=== PATIENT | male | born 1960 | race Caucasian/White ===

== ENCOUNTER 2017-03-23 13:36 | Inpatient (IN) | payer MEDICAID, OTHER, SELFPAY ==
[2017-03-23 15:42] LABS: BASO % 0.3 % (0.0-1.0); EOS % 0.2 % (0.0-3.0); HEMATOCRIT 47.2 % (42.0-52.0); HEMOGLOBIN 14.8 g/dl (14.0-18.0); IMMATURE GRANULOCYTE % 0.3 % (0-0); LYMPH # 1.3 10^3/uL (1.5-4.5); LYMPH % 10.6 % (24.0-44.0); MEAN CORPUSCULAR HEMOGLOBIN 25.6 pg (27.0-33.0); MEAN CORPUSCULAR HGB CONC 31.4 g/dl (32.0-36.5); MEAN CORPUSCULAR VOLUME 81.7 fl (80.0-96.0); MONO # 0.7 10^3/uL (0.0-0.8); MONO % 5.8 % (0.0-5.0); NEUTROPHILS # 10.2 10^3/uL (1.8-7.7); NEUTROPHILS % 82.8 % (36.0-66.0); PLATELET COUNT, AUTOMATED 339 10^3/uL (150-450); RED BLOOD COUNT 5.78 10^6/uL (4.30-6.10); RED CELL DISTRIBUTION WIDTH 14.7 % (11.5-14.5); WHITE BLOOD COUNT 12.3 10^3/uL (4.0-10.0)
[2017-03-23 15:53] LABS: INR 1.18; PARTIAL THROMBOPLASTIN TIME 27.6 SECONDS (26.8-37.9); PROTHROMBIN TIME 15.2 SECONDS (12.4-14.5)
[2017-03-23 15:56] LABS: D-DIMER QUANT 1882.8 ng/ml (<500)
[2017-03-23 16:11] LABS: ALBUMIN 2.9 GM/DL (3.2-5.2); ALBUMIN/GLOBULIN RATIO 0.88 (1.00-1.93); ALKALINE PHOSPHATASE 142 U/L (45-117); ALT/SGPT 72 U/L (12-78); ANION GAP 8 MEQ/L (8-16); AST/SGOT 40 U/L (7-37); BILIRUBIN,DIRECT 0.3 MG/DL (0.0-0.2); BILIRUBIN,TOTAL 0.8 MG/DL (0.2-1.0); BLOOD UREA NITROGEN 20 MG/DL (7-18); CALCIUM LEVEL 8.4 MG/DL (8.5-10.1); CARBON DIOXIDE LEVEL 27 MEQ/L (21-32); CHLORIDE LEVEL 105 MEQ/L (98-107); CPK CREATINE PHOSPHOKINASE 161 U/L (39-308); GLOMERULAR FILTRATION RATE > 60.0 (>56); GLUCOSE, FASTING 202 MG/DL (70-105); LIPASE 182 U/L (73-393); SODIUM LEVEL 140 MEQ/L (136-145); TOTAL PROTEIN 6.2 GM/DL (6.4-8.2); TROPONIN I 0.05 NG/ML (< 0.10)
[2017-03-23 16:14] LABS: LACTIC ACID SEPSIS PROTOCOL 2.6 MMOL/L (0.4-2.0)
[2017-03-23 16:17] LABS: CK-MB VALUE MASS 5.8 NG/ML (0.0-3.6); NT-PRO BNP 4437 PG/ML (<125)
[2017-03-23] MEDS ORDERED: ISOVUE-370 76% 100ML VIAL (Q9967) As Ordered (16:23)
[2017-03-23] MEDS: FUROSEMIDE 40 MG/4 ML VIAL (J1940) IV (17:20)
[2017-03-23 19:19] LABS: C REACTIVE PROTEIN QUANTITATIV 2.67 MG/DL (0.00-0.30)
[2017-03-23] MEDS ORDERED: ONDANSETRON 4 MG TAB (S0181) PO (20:30)
[2017-03-23] MEDS ORDERED: METOCLOPRAMIDE 10 MG TAB PO (20:30)
[2017-03-23] MEDS ORDERED: BISACODYL 5 MG TAB PO (20:30)
[2017-03-23 21:26] LABS: ALBUMIN 2.8 GM/DL (3.2-5.2); ALKALINE PHOSPHATASE 130 U/L (45-117); AST/SGOT 36 U/L (7-37); BILIRUBIN,DIRECT 0.3 MG/DL (0.0-0.2); CPK CREATINE PHOSPHOKINASE 191 U/L (39-308); TOTAL PROTEIN 5.6 GM/DL (6.4-8.2); TROPONIN I 0.05 NG/ML (< 0.10)
[2017-03-23 21:31] LABS: ALT/SGPT 67 U/L (12-78); CK-MB VALUE MASS 7.3 NG/ML (0.0-3.6); MB/CK RELATIVE INDEX 3.82 (< OR =4)
[2017-03-23 21:46] LABS: PREALBUMIN 18.1 MG/DL (20.0-40.0)
[2017-03-23] MEDS: KETOCONAZOLE 2% CREAM TOP (23:40)
[2017-03-24 05:34] LABS: HEMATOCRIT 41.8 % (42.0-52.0); HEMOGLOBIN 13.1 g/dl (14.0-18.0); MEAN CORPUSCULAR HEMOGLOBIN 25.4 pg (27.0-33.0); MEAN CORPUSCULAR HGB CONC 31.3 g/dl (32.0-36.5); MEAN CORPUSCULAR VOLUME 81.2 fl (80.0-96.0); PLATELET COUNT, AUTOMATED 316 10^3/uL (150-450); RED BLOOD COUNT 5.15 10^6/uL (4.30-6.10); RED CELL DISTRIBUTION WIDTH 14.7 % (11.5-14.5)
[2017-03-24 05:56] LABS: ANION GAP 9 MEQ/L (8-16); BLOOD UREA NITROGEN 20 MG/DL (7-18); CALCIUM LEVEL 8.2 MG/DL (8.5-10.1); CARBON DIOXIDE LEVEL 28 MEQ/L (21-32); CHLORIDE LEVEL 104 MEQ/L (98-107); GLOMERULAR FILTRATION RATE > 60.0 (>56); GLUCOSE, FASTING 200 MG/DL (70-105); POTASSIUM SERUM 3.8 MEQ/L (3.5-5.1); SODIUM LEVEL 141 MEQ/L (136-145)
[2017-03-24] MEDS: ENOXAPARIN 40 MG/0.4 ML SYRINGE (J1650) SC (08:59)
[2017-03-24] MEDS: FUROSEMIDE 20 MG/2 ML VIAL (J1940) IV (09:00)
[2017-03-24] MEDS: KETOCONAZOLE 2% CREAM TOP ×2 (09:00→21:09)
[2017-03-24] MEDS: FUROSEMIDE 40 MG/4 ML VIAL (J1940) IV ×3 (12:44→23:16)
[2017-03-25 05:49] LABS: HEMATOCRIT 40.7 % (42.0-52.0); HEMOGLOBIN 12.7 g/dl (14.0-18.0); MEAN CORPUSCULAR HEMOGLOBIN 25.4 pg (27.0-33.0); MEAN CORPUSCULAR HGB CONC 31.2 g/dl (32.0-36.5); MEAN CORPUSCULAR VOLUME 81.4 fl (80.0-96.0); PLATELET COUNT, AUTOMATED 279 10^3/uL (150-450); RED CELL DISTRIBUTION WIDTH 14.9 % (11.5-14.5); WHITE BLOOD COUNT 8.1 10^3/uL (4.0-10.0)
[2017-03-25] MEDS: FUROSEMIDE 40 MG/4 ML VIAL (J1940) IV ×3 (06:00→18:01)
[2017-03-25 06:04] LABS: ANION GAP 8 MEQ/L (8-16); BLOOD UREA NITROGEN 19 MG/DL (7-18); CALCIUM LEVEL 7.9 MG/DL (8.5-10.1); CARBON DIOXIDE LEVEL 32 MEQ/L (21-32); CHLORIDE LEVEL 102 MEQ/L (98-107); CREATININE FOR GFR 0.81 MG/DL (0.70-1.30); GLOMERULAR FILTRATION RATE > 60.0 (>56); GLUCOSE, FASTING 171 MG/DL (70-105); POTASSIUM SERUM 3.2 MEQ/L (3.5-5.1); SODIUM LEVEL 142 MEQ/L (136-145)
[2017-03-25] MEDS: ENOXAPARIN 40 MG/0.4 ML SYRINGE (J1650) SC (07:47)
[2017-03-25] MEDS: KETOCONAZOLE 2% CREAM TOP ×2 (07:48→21:37)
[2017-03-25] MEDS: POTASSIUM CHLORIDE 10 MEQ SR TABLET PO (08:47)
[2017-03-25] MEDS: CAPTOpril 3.125 MG PER 1/4 TABLET PO ×2 (18:01→21:36)
[2017-03-25] MEDS: CARVedilol 6.25 MG TAB PO (21:36)
[2017-03-26 05:17] LABS: HEMATOCRIT 39.6 % (42.0-52.0); HEMOGLOBIN 12.3 g/dl (14.0-18.0); MEAN CORPUSCULAR HEMOGLOBIN 25.2 pg (27.0-33.0); MEAN CORPUSCULAR HGB CONC 31.1 g/dl (32.0-36.5); MEAN CORPUSCULAR VOLUME 81.1 fl (80.0-96.0); PLATELET COUNT, AUTOMATED 268 10^3/uL (150-450); RED BLOOD COUNT 4.88 10^6/uL (4.30-6.10); RED CELL DISTRIBUTION WIDTH 14.9 % (11.5-14.5); WHITE BLOOD COUNT 7.3 10^3/uL (4.0-10.0)
[2017-03-26 05:34] LABS: ANION GAP 6 MEQ/L (8-16); BLOOD UREA NITROGEN 21 MG/DL (7-18); CALCIUM LEVEL 7.8 MG/DL (8.5-10.1); CARBON DIOXIDE LEVEL 34 MEQ/L (21-32); CHLORIDE LEVEL 100 MEQ/L (98-107); CREATININE FOR GFR 0.88 MG/DL (0.70-1.30); GLOMERULAR FILTRATION RATE > 60.0 (>56); GLUCOSE, FASTING 166 MG/DL (70-105); POTASSIUM SERUM 3.6 MEQ/L (3.5-5.1); SODIUM LEVEL 140 MEQ/L (136-145)
[2017-03-26] MEDS: FUROSEMIDE 40 MG/4 ML VIAL (J1940) IV ×5 (05:38→23:43)
[2017-03-26] MEDS: ENOXAPARIN 40 MG/0.4 ML SYRINGE (J1650) SC (09:00)
[2017-03-26] MEDS: CAPTOpril 3.125 MG PER 1/4 TABLET PO ×3 (09:31→22:05)
[2017-03-26] MEDS: CARVedilol 6.25 MG TAB PO (09:31)
[2017-03-26] MEDS: KETOCONAZOLE 2% CREAM TOP ×2 (09:32→22:05)
[2017-03-26] MEDS: CARVedilol 12.5 MG TAB PO (22:04)
[2017-03-27 05:56] LABS: HEMATOCRIT 41.8 % (42.0-52.0); HEMOGLOBIN 13.1 g/dl (14.0-18.0); MEAN CORPUSCULAR HEMOGLOBIN 25.3 pg (27.0-33.0); MEAN CORPUSCULAR HGB CONC 31.3 g/dl (32.0-36.5); MEAN CORPUSCULAR VOLUME 80.7 fl (80.0-96.0); PLATELET COUNT, AUTOMATED 303 10^3/uL (150-450); RED BLOOD COUNT 5.18 10^6/uL (4.30-6.10); RED CELL DISTRIBUTION WIDTH 14.8 % (11.5-14.5); WHITE BLOOD COUNT 7.7 10^3/uL (4.0-10.0)
[2017-03-27] MEDS: FUROSEMIDE 40 MG/4 ML VIAL (J1940) IV ×3 (06:00→17:18)
[2017-03-27 06:09] LABS: ANION GAP 7 MEQ/L (8-16); BLOOD UREA NITROGEN 25 MG/DL (7-18); CALCIUM LEVEL 8.3 MG/DL (8.5-10.1); CARBON DIOXIDE LEVEL 35 MEQ/L (21-32); CHLORIDE LEVEL 97 MEQ/L (98-107); CREATININE FOR GFR 0.96 MG/DL (0.70-1.30); GLOMERULAR FILTRATION RATE > 60.0 (>56); GLUCOSE, FASTING 203 MG/DL (70-105); MAGNESIUM LEVEL 2.2 MG/DL (1.8-2.4); POTASSIUM SERUM 3.9 MEQ/L (3.5-5.1); SODIUM LEVEL 139 MEQ/L (136-145)
[2017-03-27] MEDS: ENOXAPARIN 40 MG/0.4 ML SYRINGE (J1650) SC ×2 (09:00→09:31)
[2017-03-27] MEDS: CAPTOpril 3.125 MG PER 1/4 TABLET PO ×3 (09:31→21:07)
[2017-03-27] MEDS: KETOCONAZOLE 2% CREAM TOP ×2 (09:31→21:08)
[2017-03-27] MEDS: CARVedilol 12.5 MG TAB PO ×2 (09:31→21:07)
[2017-03-28] MEDS: FUROSEMIDE 40 MG/4 ML VIAL (J1940) IV ×4 (00:21→17:22)
[2017-03-28 07:15] LABS: HEMATOCRIT 39.7 % (42.0-52.0); HEMOGLOBIN 12.2 g/dl (14.0-18.0); MEAN CORPUSCULAR HEMOGLOBIN 24.6 pg (27.0-33.0); MEAN CORPUSCULAR HGB CONC 30.7 g/dl (32.0-36.5); MEAN CORPUSCULAR VOLUME 80.2 fl (80.0-96.0); PLATELET COUNT, AUTOMATED 280 10^3/uL (150-450); RED BLOOD COUNT 4.95 10^6/uL (4.30-6.10); RED CELL DISTRIBUTION WIDTH 14.7 % (11.5-14.5); WHITE BLOOD COUNT 7.8 10^3/uL (4.0-10.0)
[2017-03-28 07:40] LABS: ANION GAP 7 MEQ/L (8-16); BLOOD UREA NITROGEN 23 MG/DL (7-18); CALCIUM LEVEL 8.1 MG/DL (8.5-10.1); CARBON DIOXIDE LEVEL 35 MEQ/L (21-32); CHLORIDE LEVEL 97 MEQ/L (98-107); CREATININE FOR GFR 0.94 MG/DL (0.70-1.30); GLOMERULAR FILTRATION RATE > 60.0 (>56); GLUCOSE, FASTING 190 MG/DL (70-105); POTASSIUM SERUM 3.6 MEQ/L (3.5-5.1); SODIUM LEVEL 139 MEQ/L (136-145)
[2017-03-28] MEDS: ATORVASTATIN 20 MG TAB PO (09:00)
[2017-03-28] MEDS: ASPIRIN 81 MG ENTERIC TAB PO (09:00)
[2017-03-28] MEDS: ENOXAPARIN 40 MG/0.4 ML SYRINGE (J1650) SC (09:00)
[2017-03-28] MEDS: CARVedilol 12.5 MG TAB PO ×2 (09:15→20:47)
[2017-03-28] MEDS: CAPTOpril 3.125 MG PER 1/4 TABLET PO ×3 (09:15→20:47)
[2017-03-28] MEDS: KETOCONAZOLE 2% CREAM TOP ×2 (09:16→20:48)
[2017-03-29] MEDS: FUROSEMIDE 40 MG/4 ML VIAL (J1940) IV ×5 (00:09→23:50)
[2017-03-29 05:52] LABS: HEMATOCRIT 38.3 % (42.0-52.0); MEAN CORPUSCULAR HEMOGLOBIN 25.2 pg (27.0-33.0); MEAN CORPUSCULAR HGB CONC 31.3 g/dl (32.0-36.5); MEAN CORPUSCULAR VOLUME 80.3 fl (80.0-96.0); PLATELET COUNT, AUTOMATED 259 10^3/uL (150-450); RED BLOOD COUNT 4.77 10^6/uL (4.30-6.10); RED CELL DISTRIBUTION WIDTH 14.6 % (11.5-14.5); WHITE BLOOD COUNT 8.3 10^3/uL (4.0-10.0)
[2017-03-29 06:17] LABS: AMMONIA 45 uMOL/L (<32)
[2017-03-29 06:21] LABS: ANION GAP 7 MEQ/L (8-16); BLOOD UREA NITROGEN 20 MG/DL (7-18); CALCIUM LEVEL 8.1 MG/DL (8.5-10.1); CARBON DIOXIDE LEVEL 34 MEQ/L (21-32); CHLORIDE LEVEL 97 MEQ/L (98-107); CREATININE FOR GFR 0.87 MG/DL (0.70-1.30); GLOMERULAR FILTRATION RATE > 60.0 (>56); GLUCOSE, FASTING 194 MG/DL (70-105); POTASSIUM SERUM 3.2 MEQ/L (3.5-5.1); SODIUM LEVEL 138 MEQ/L (136-145)
[2017-03-29] MEDS: ENOXAPARIN 40 MG/0.4 ML SYRINGE (J1650) SC (09:00)
[2017-03-29] MEDS ORDERED: ASPIRIN 81 MG ENTERIC TAB PO (09:00)
[2017-03-29] MEDS: ATORVASTATIN 20 MG TAB PO (09:00)
[2017-03-29] MEDS: ASPIRIN 81 MG ENTERIC TAB PO (09:14)
[2017-03-29] MEDS: CAPTOpril 3.125 MG PER 1/4 TABLET PO ×3 (09:14→20:40)
[2017-03-29] MEDS: POTASSIUM CHLORIDE 10 MEQ SR TABLET PO ×2 (09:14→23:51)
[2017-03-29] MEDS: SPIRONOLACTONE 12.5MG PER 1/2 TABLET PO (09:15)
[2017-03-29] MEDS: CARVedilol 12.5 MG TAB PO ×2 (09:17→20:40)
[2017-03-29] MEDS: KETOCONAZOLE 2% CREAM TOP ×2 (11:39→20:40)
[2017-03-30 05:02] LABS: HEMATOCRIT 40.2 % (42.0-52.0); HEMOGLOBIN 12.6 g/dl (14.0-18.0); MEAN CORPUSCULAR HEMOGLOBIN 24.8 pg (27.0-33.0); MEAN CORPUSCULAR HGB CONC 31.3 g/dl (32.0-36.5); PLATELET COUNT, AUTOMATED 311 10^3/uL (150-450); RED BLOOD COUNT 5.09 10^6/uL (4.30-6.10); RED CELL DISTRIBUTION WIDTH 14.6 % (11.5-14.5); WHITE BLOOD COUNT 9.8 10^3/uL (4.0-10.0)
[2017-03-30 05:21] LABS: ANION GAP 5 MEQ/L (8-16); BLOOD UREA NITROGEN 22 MG/DL (7-18); CALCIUM LEVEL 8.4 MG/DL (8.5-10.1); CARBON DIOXIDE LEVEL 35 MEQ/L (21-32); CHLORIDE LEVEL 95 MEQ/L (98-107); CREATININE FOR GFR 1.03 MG/DL (0.70-1.30); GLOMERULAR FILTRATION RATE > 60.0 (>56); GLUCOSE, FASTING 245 MG/DL (70-105); POTASSIUM SERUM 4.6 MEQ/L (3.5-5.1); SODIUM LEVEL 135 MEQ/L (136-145)
[2017-03-30] MEDS: FUROSEMIDE 40 MG/4 ML VIAL (J1940) IV ×4 (05:40→23:54)
[2017-03-30] MEDS: ENOXAPARIN 40 MG/0.4 ML SYRINGE (J1650) SC (09:00)
[2017-03-30] MEDS: ATORVASTATIN 20 MG TAB PO ×2 (09:00→09:16)
[2017-03-30] MEDS: ASPIRIN 81 MG ENTERIC TAB PO (09:16)
[2017-03-30] MEDS: SPIRONOLACTONE 12.5MG PER 1/2 TABLET PO (09:16)
[2017-03-30] MEDS: CARVedilol 12.5 MG TAB PO ×2 (09:17→20:05)
[2017-03-30] MEDS: LISINOPRIL 10 MG TAB PO (09:17)
[2017-03-30] MEDS: KETOCONAZOLE 2% CREAM TOP ×2 (09:19→20:06)
[2017-03-30] MEDS ORDERED: SLF 3 ML SYR IV (14:30)
[2017-03-30] MEDS: SLF 3 ML SYR IV (20:06)
[2017-03-31 05:05] LABS: BASO % 0.4 % (0.0-1.0); EOS # 0.1 10^3/uL (0.0-0.50); EOS % 0.8 % (0.0-3.0); HEMATOCRIT 39.5 % (42.0-52.0); HEMOGLOBIN 12.2 g/dl (14.0-18.0); IMMATURE GRANULOCYTE % 0.2 % (0-0); LYMPH # 1.8 10^3/uL (1.5-4.5); LYMPH % 21.9 % (24.0-44.0); MEAN CORPUSCULAR HEMOGLOBIN 24.8 pg (27.0-33.0); MEAN CORPUSCULAR HGB CONC 30.9 g/dl (32.0-36.5); MEAN CORPUSCULAR VOLUME 80.3 fl (80.0-96.0); MONO # 0.7 10^3/uL (0.0-0.8); MONO % 8.4 % (0.0-5.0); NEUTROPHILS # 5.6 10^3/uL (1.8-7.7); NEUTROPHILS % 68.3 % (36.0-66.0); PLATELET COUNT, AUTOMATED 296 10^3/uL (150-450); RED BLOOD COUNT 4.92 10^6/uL (4.30-6.10); RED CELL DISTRIBUTION WIDTH 14.7 % (11.5-14.5); WHITE BLOOD COUNT 8.3 10^3/uL (4.0-10.0)
[2017-03-31 05:30] LABS: ANION GAP 4 MEQ/L (8-16); BLOOD UREA NITROGEN 20 MG/DL (7-18); CALCIUM LEVEL 8.1 MG/DL (8.5-10.1); CARBON DIOXIDE LEVEL 34 MEQ/L (21-32); CHLORIDE LEVEL 95 MEQ/L (98-107); CREATININE FOR GFR 0.95 MG/DL (0.70-1.30); GLOMERULAR FILTRATION RATE > 60.0 (>56); GLUCOSE, FASTING 217 MG/DL (70-105); POTASSIUM SERUM 4.6 MEQ/L (3.5-5.1); SODIUM LEVEL 133 MEQ/L (136-145)
[2017-03-31] MEDS: SLF 3 ML SYR IV ×3 (06:09→22:00)
[2017-03-31] MEDS: FUROSEMIDE 40 MG/4 ML VIAL (J1940) IV ×3 (06:09→18:12)
[2017-03-31] MEDS: LISINOPRIL 10 MG TAB PO (08:50)
[2017-03-31] MEDS: ENOXAPARIN 40 MG/0.4 ML SYRINGE (J1650) SC (08:50)
[2017-03-31] MEDS: CARVedilol 12.5 MG TAB PO ×2 (08:50→22:40)
[2017-03-31] MEDS: ASPIRIN 81 MG ENTERIC TAB PO (08:50)
[2017-03-31] MEDS: SPIRONOLACTONE 12.5MG PER 1/2 TABLET PO (08:50)
[2017-03-31] MEDS: ATORVASTATIN 20 MG TAB PO (08:50)
[2017-03-31] MEDS: KETOCONAZOLE 2% CREAM TOP ×2 (08:51→21:00)
[2017-04-01 05:31] LABS: BASO % 0.3 % (0.0-1.0); EOS # 0.1 10^3/uL (0.0-0.50); EOS % 0.7 % (0.0-3.0); HEMATOCRIT 38.3 % (42.0-52.0); HEMOGLOBIN 11.9 g/dl (14.0-18.0); IMMATURE GRANULOCYTE % 0.5 % (0-0); LYMPH # 1.5 10^3/uL (1.5-4.5); LYMPH % 17.9 % (24.0-44.0); MEAN CORPUSCULAR HEMOGLOBIN 24.7 pg (27.0-33.0); MEAN CORPUSCULAR HGB CONC 31.1 g/dl (32.0-36.5); MEAN CORPUSCULAR VOLUME 79.6 fl (80.0-96.0); MONO # 0.9 10^3/uL (0.0-0.8); MONO % 10.1 % (0.0-5.0); NEUTROPHILS # 6.1 10^3/uL (1.8-7.7); NEUTROPHILS % 70.5 % (36.0-66.0); PLATELET COUNT, AUTOMATED 329 10^3/uL (150-450); RED BLOOD COUNT 4.81 10^6/uL (4.30-6.10); RED CELL DISTRIBUTION WIDTH 14.7 % (11.5-14.5); WHITE BLOOD COUNT 8.6 10^3/uL (4.0-10.0)
[2017-04-01 05:47] LABS: ANION GAP 5 MEQ/L (8-16); BLOOD UREA NITROGEN 21 MG/DL (7-18); CALCIUM LEVEL 8.2 MG/DL (8.5-10.1); CARBON DIOXIDE LEVEL 35 MEQ/L (21-32); CHLORIDE LEVEL 97 MEQ/L (98-107); CREATININE FOR GFR 0.86 MG/DL (0.70-1.30); GLOMERULAR FILTRATION RATE > 60.0 (>56); GLUCOSE, FASTING 191 MG/DL (70-105); POTASSIUM SERUM 3.4 MEQ/L (3.5-5.1); SODIUM LEVEL 137 MEQ/L (136-145)
[2017-04-01] MEDS: FUROSEMIDE 40 MG/4 ML VIAL (J1940) IV ×2 (06:00)
[2017-04-01] MEDS: SLF 3 ML SYR IV ×3 (06:00→21:27)
[2017-04-01] MEDS: ATORVASTATIN 20 MG TAB PO (09:00)
[2017-04-01] MEDS: ENOXAPARIN 40 MG/0.4 ML SYRINGE (J1650) SC (09:00)
[2017-04-01 09:11] LABS: MAGNESIUM LEVEL 2.3 MG/DL (1.8-2.4)
[2017-04-01] MEDS: ASPIRIN 81 MG ENTERIC TAB PO (09:21)
[2017-04-01] MEDS: KETOCONAZOLE 2% CREAM TOP ×2 (09:23→21:26)
[2017-04-01] MEDS: CARVedilol 12.5 MG TAB PO ×2 (12:00→21:26)
[2017-04-01] MEDS: SPIRONOLACTONE 12.5MG PER 1/2 TABLET PO (12:00)
[2017-04-01] MEDS: FUROSEMIDE 100 MG/10 ML VIAL (J1940) IV (13:27)
[2017-04-01] MEDS: POTASSIUM CHLORIDE 10 MEQ SR TABLET PO (18:19)
[2017-04-02] MEDS: FUROSEMIDE 100 MG/10 ML VIAL (J1940) IV ×2 (01:26→12:26)
[2017-04-02] MEDS: CEPACOL LOZENGE PO ×3 (01:26→21:31)
[2017-04-02 05:44] LABS: BASO % 0.4 % (0.0-1.0); EOS % 0.5 % (0.0-3.0); HEMATOCRIT 37.4 % (42.0-52.0); HEMOGLOBIN 11.7 g/dl (14.0-18.0); IMMATURE GRANULOCYTE % 0.4 % (0-0); LYMPH # 1.4 10^3/uL (1.5-4.5); LYMPH % 18.2 % (24.0-44.0); MEAN CORPUSCULAR HEMOGLOBIN 25.1 pg (27.0-33.0); MEAN CORPUSCULAR HGB CONC 31.3 g/dl (32.0-36.5); MEAN CORPUSCULAR VOLUME 80.3 fl (80.0-96.0); MONO # 0.8 10^3/uL (0.0-0.8); MONO % 10.8 % (0.0-5.0); NEUTROPHILS # 5.3 10^3/uL (1.8-7.7); NEUTROPHILS % 69.7 % (36.0-66.0); PLATELET COUNT, AUTOMATED 316 10^3/uL (150-450); RED BLOOD COUNT 4.66 10^6/uL (4.30-6.10); RED CELL DISTRIBUTION WIDTH 14.9 % (11.5-14.5); WHITE BLOOD COUNT 7.6 10^3/uL (4.0-10.0)
[2017-04-02 06:07] LABS: ANION GAP 6 MEQ/L (8-16); BLOOD UREA NITROGEN 19 MG/DL (7-18); CALCIUM LEVEL 8.4 MG/DL (8.5-10.1); CARBON DIOXIDE LEVEL 34 MEQ/L (21-32); CHLORIDE LEVEL 98 MEQ/L (98-107); CREATININE FOR GFR 0.85 MG/DL (0.70-1.30); GLOMERULAR FILTRATION RATE > 60.0 (>56); GLUCOSE, FASTING 180 MG/DL (70-105); MAGNESIUM LEVEL 2.2 MG/DL (1.8-2.4); POTASSIUM SERUM 3.7 MEQ/L (3.5-5.1); SODIUM LEVEL 138 MEQ/L (136-145)
[2017-04-02] MEDS: SLF 3 ML SYR IV ×3 (06:33→21:31)
[2017-04-02] MEDS: ENOXAPARIN 40 MG/0.4 ML SYRINGE (J1650) SC (09:00)
[2017-04-02] MEDS: SPIRONOLACTONE 25 MG TAB PO (09:14)
[2017-04-02] MEDS: CARVedilol 12.5 MG TAB PO ×2 (09:14→21:31)
[2017-04-02] MEDS: LISINOPRIL 20 MG TAB PO (09:14)
[2017-04-02] MEDS: ASPIRIN 81 MG ENTERIC TAB PO (09:14)
[2017-04-02] MEDS: KETOCONAZOLE 2% CREAM TOP ×2 (09:15→21:32)
[2017-04-03] MEDS: FUROSEMIDE 100 MG/10 ML VIAL (J1940) IV ×3 (00:45→23:45)
[2017-04-03] MEDS: SLF 3 ML SYR IV ×3 (05:57→22:24)
[2017-04-03 06:50] LABS: CHLORIDE LEVEL 100 MEQ/L (98-107); POTASSIUM SERUM 3.8 MEQ/L (3.5-5.1); SODIUM LEVEL 139 MEQ/L (136-145)
[2017-04-03 06:53] LABS: MAGNESIUM LEVEL 2.2 MG/DL (1.8-2.4)
[2017-04-03 06:54] LABS: BLOOD UREA NITROGEN 18 MG/DL (7-18); CALCIUM LEVEL 8.2 MG/DL (8.5-10.1); GLUCOSE, FASTING 180 MG/DL (70-105)
[2017-04-03 06:55] LABS: ANION GAP 6 MEQ/L (8-16); BASO % 0.3 % (0.0-1.0); CARBON DIOXIDE LEVEL 33 MEQ/L (21-32); EOS % 0.5 % (0.0-3.0); HEMATOCRIT 38.5 % (42.0-52.0); HEMOGLOBIN 12.1 g/dl (14.0-18.0); IMMATURE GRANULOCYTE % 0.4 % (0-0); LYMPH # 1.5 10^3/uL (1.5-4.5); LYMPH % 19.1 % (24.0-44.0); MEAN CORPUSCULAR HEMOGLOBIN 25.2 pg (27.0-33.0); MEAN CORPUSCULAR HGB CONC 31.4 g/dl (32.0-36.5); MONO # 0.7 10^3/uL (0.0-0.8); MONO % 9.5 % (0.0-5.0); NEUTROPHILS # 5.5 10^3/uL (1.8-7.7); NEUTROPHILS % 70.2 % (36.0-66.0); PLATELET COUNT, AUTOMATED 340 10^3/uL (150-450); RED BLOOD COUNT 4.81 10^6/uL (4.30-6.10); RED CELL DISTRIBUTION WIDTH 15.1 % (11.5-14.5); WHITE BLOOD COUNT 7.8 10^3/uL (4.0-10.0)
[2017-04-03 06:56] LABS: GLOMERULAR FILTRATION RATE > 60.0 (>56)
[2017-04-03] MEDS: ENOXAPARIN 40 MG/0.4 ML SYRINGE (J1650) SC (09:00)
[2017-04-03] MEDS: LISINOPRIL 20 MG TAB PO (10:20)
[2017-04-03] MEDS: ASPIRIN 81 MG ENTERIC TAB PO (10:20)
[2017-04-03] MEDS: CARVedilol 12.5 MG TAB PO ×2 (10:20→22:23)
[2017-04-03] MEDS: SPIRONOLACTONE 25 MG TAB PO (10:20)
[2017-04-03] MEDS: KETOCONAZOLE 2% CREAM TOP ×2 (10:21→22:23)
[2017-04-03] MEDS: CEPACOL LOZENGE PO (16:21)
[2017-04-04 05:52] LABS: BASO % 0.4 % (0.0-1.0); EOS # 0.1 10^3/uL (0.0-0.50); EOS % 1.2 % (0.0-3.0); HEMATOCRIT 36.7 % (42.0-52.0); HEMOGLOBIN 11.3 g/dl (14.0-18.0); IMMATURE GRANULOCYTE % 0.3 % (0-0); LYMPH % 15.3 % (24.0-44.0); MEAN CORPUSCULAR HEMOGLOBIN 24.9 pg (27.0-33.0); MEAN CORPUSCULAR HGB CONC 30.8 g/dl (32.0-36.5); MONO # 0.8 10^3/uL (0.0-0.8); MONO % 11.5 % (0.0-5.0); NEUTROPHILS # 4.9 10^3/uL (1.8-7.7); NEUTROPHILS % 71.3 % (36.0-66.0); PLATELET COUNT, AUTOMATED 309 10^3/uL (150-450); RED BLOOD COUNT 4.53 10^6/uL (4.30-6.10); WHITE BLOOD COUNT 6.8 10^3/uL (4.0-10.0)
[2017-04-04] MEDS: SLF 3 ML SYR IV ×3 (06:00→20:48)
[2017-04-04 06:06] LABS: ANION GAP 4 MEQ/L (8-16); BLOOD UREA NITROGEN 18 MG/DL (7-18); CALCIUM LEVEL 8.2 MG/DL (8.5-10.1); CARBON DIOXIDE LEVEL 35 MEQ/L (21-32); CHLORIDE LEVEL 100 MEQ/L (98-107); CREATININE FOR GFR 0.87 MG/DL (0.70-1.30); GLOMERULAR FILTRATION RATE > 60.0 (>56); GLUCOSE, FASTING 178 MG/DL (70-105); MAGNESIUM LEVEL 2.2 MG/DL (1.8-2.4); POTASSIUM SERUM 3.7 MEQ/L (3.5-5.1); SODIUM LEVEL 139 MEQ/L (136-145)
[2017-04-04] MEDS: ENOXAPARIN 40 MG/0.4 ML SYRINGE (J1650) SC (09:00)
[2017-04-04] MEDS: KETOCONAZOLE 2% CREAM TOP ×2 (09:27→20:48)
[2017-04-04] MEDS: CARVedilol 12.5 MG TAB PO ×2 (09:27→20:47)
[2017-04-04] MEDS: LISINOPRIL 20 MG TAB PO (09:27)
[2017-04-04] MEDS: SPIRONOLACTONE 25 MG TAB PO (09:27)
[2017-04-04] MEDS: ASPIRIN 81 MG ENTERIC TAB PO (09:27)
[2017-04-04] MEDS: FUROSEMIDE 100 MG/10 ML VIAL (J1940) IV (11:46)
[2017-04-04] MEDS: guaiFENesin ER 600 MG TAB PO (20:46)
[2017-04-05] MEDS ORDERED: IPRATROPIUM 0.5MG/ALBUTEROL 2.5MG INH SOL UD 3ML (DUONEB)(J7620) NEB
[2017-04-05] MEDS: FUROSEMIDE 100 MG/10 ML VIAL (J1940) IV ×2 (00:18→12:23)
[2017-04-05] MEDS: IPRATROPIUM 0.5MG/ALBUTEROL 2.5MG INH SOL UD 3ML (DUONEB)(J7620) NEB ×4 (01:23→19:54)
[2017-04-05] MEDS: SLF 3 ML SYR IV ×3 (06:00→21:14)
[2017-04-05 08:00] LABS: BASO % 0.3 % (0.0-1.0); EOS # 0.1 10^3/uL (0.0-0.50); EOS % 1.2 % (0.0-3.0); HEMATOCRIT 36.6 % (42.0-52.0); HEMOGLOBIN 11.5 g/dl (14.0-18.0); IMMATURE GRANULOCYTE % 0.3 % (0-0); LYMPH # 1.1 10^3/uL (1.5-4.5); LYMPH % 18.6 % (24.0-44.0); MEAN CORPUSCULAR HEMOGLOBIN 25.1 pg (27.0-33.0); MEAN CORPUSCULAR HGB CONC 31.4 g/dl (32.0-36.5); MEAN CORPUSCULAR VOLUME 79.9 fl (80.0-96.0); MONO # 0.8 10^3/uL (0.0-0.8); MONO % 13.8 % (0.0-5.0); NEUTROPHILS # 3.9 10^3/uL (1.8-7.7); NEUTROPHILS % 65.8 % (36.0-66.0); PLATELET COUNT, AUTOMATED 305 10^3/uL (150-450); RED BLOOD COUNT 4.58 10^6/uL (4.30-6.10); RED CELL DISTRIBUTION WIDTH 15.1 % (11.5-14.5); WHITE BLOOD COUNT 5.9 10^3/uL (4.0-10.0)
[2017-04-05] MEDS: SPIRONOLACTONE 25 MG TAB PO (08:15)
[2017-04-05] MEDS: ASPIRIN 81 MG ENTERIC TAB PO (08:16)
[2017-04-05] MEDS: guaiFENesin ER 600 MG TAB PO ×2 (08:16→21:14)
[2017-04-05] MEDS: CARVedilol 12.5 MG TAB PO ×2 (08:16→21:14)
[2017-04-05] MEDS: ACETAMINOPHEN TAB 650MG DOSE (2X325MG) PO (08:16)
[2017-04-05] MEDS: LISINOPRIL 20 MG TAB PO (08:16)
[2017-04-05] MEDS: KETOCONAZOLE 2% CREAM TOP ×2 (08:17→21:18)
[2017-04-05 08:29] LABS: ERYTHROCYTE SEDIMENTATION RATE 9 mm/hr (0-20)
[2017-04-05 08:55] LABS: ESTIMATED AVERAGE GLUCOSE 220 MG/DL (60-110); HEMOGLOBIN A1c 9.3 %
[2017-04-05] MEDS: ENOXAPARIN 40 MG/0.4 ML SYRINGE (J1650) SC (09:00)
[2017-04-05 09:26] LABS: ANION GAP 4 MEQ/L (8-16); BLOOD UREA NITROGEN 16 MG/DL (7-18); C REACTIVE PROTEIN QUANTITATIV 2.83 MG/DL (0.00-0.30); CALCIUM LEVEL 8.2 MG/DL (8.5-10.1); CARBON DIOXIDE LEVEL 34 MEQ/L (21-32); CHLORIDE LEVEL 101 MEQ/L (98-107); GLOMERULAR FILTRATION RATE > 60.0 (>56); GLUCOSE, FASTING 147 MG/DL (70-105); MAGNESIUM LEVEL 2.3 MG/DL (1.8-2.4); SODIUM LEVEL 139 MEQ/L (136-145)
[2017-04-05] MEDS: HumaLOG INSULIN (NovoLOG) PER UNIT SC ×2 (17:30→21:00)
[2017-04-05] MEDS ORDERED: GLUCOSE 4 GM CHEW TABLET PO (17:45)
[2017-04-05] MEDS ORDERED: DEXTROSE 50% 50 ML SYRINGE IV (17:45)
[2017-04-05] MEDS ORDERED: GLUCAGON FOR INJ 1 MG VIAL (J1610) SC (17:45)
[2017-04-05] MEDS: AUGMENTIN 500 MG TAB PO (21:13)
[2017-04-06] MEDS: FUROSEMIDE 100 MG/10 ML VIAL (J1940) IV ×2 (00:32→13:05)
[2017-04-06] MEDS: IPRATROPIUM 0.5MG/ALBUTEROL 2.5MG INH SOL UD 3ML (DUONEB)(J7620) NEB ×4 (01:41→19:49)
[2017-04-06] MEDS: SLF 3 ML SYR IV ×3 (06:00→22:05)
[2017-04-06] MEDS: AUGMENTIN 500 MG TAB PO ×3 (06:00→22:05)
[2017-04-06] MEDS: CEPACOL LOZENGE PO (06:00)
[2017-04-06 06:20] LABS: BASO % 0.3 % (0.0-1.0); EOS % 0.5 % (0.0-3.0); HEMATOCRIT 36.2 % (42.0-52.0); HEMOGLOBIN 11.3 g/dl (14.0-18.0); IMMATURE GRANULOCYTE % 0.5 % (0-0); LYMPH # 1.1 10^3/uL (1.5-4.5); LYMPH % 18.4 % (24.0-44.0); MEAN CORPUSCULAR HEMOGLOBIN 24.9 pg (27.0-33.0); MEAN CORPUSCULAR HGB CONC 31.2 g/dl (32.0-36.5); MEAN CORPUSCULAR VOLUME 79.7 fl (80.0-96.0); MONO # 0.7 10^3/uL (0.0-0.8); MONO % 12.3 % (0.0-5.0); PLATELET COUNT, AUTOMATED 297 10^3/uL (150-450); RED BLOOD COUNT 4.54 10^6/uL (4.30-6.10); RED CELL DISTRIBUTION WIDTH 15.3 % (11.5-14.5); WHITE BLOOD COUNT 5.9 10^3/uL (4.0-10.0)
[2017-04-06 06:33] LABS: ANION GAP 7 MEQ/L (8-16); BLOOD UREA NITROGEN 17 MG/DL (7-18); CALCIUM LEVEL 8.4 MG/DL (8.5-10.1); CARBON DIOXIDE LEVEL 33 MEQ/L (21-32); CHLORIDE LEVEL 98 MEQ/L (98-107); CREATININE FOR GFR 0.84 MG/DL (0.70-1.30); GLOMERULAR FILTRATION RATE > 60.0 (>56); GLUCOSE, FASTING 153 MG/DL (70-105); MAGNESIUM LEVEL 2.4 MG/DL (1.8-2.4); SODIUM LEVEL 138 MEQ/L (136-145)
[2017-04-06] MEDS: HumaLOG INSULIN (NovoLOG) PER UNIT SC ×4 (07:30→20:49)
[2017-04-06] MEDS: SPIRONOLACTONE 25 MG TAB PO (08:58)
[2017-04-06] MEDS: guaiFENesin ER 600 MG TAB PO ×2 (08:58→21:17)
[2017-04-06] MEDS: ASPIRIN 81 MG ENTERIC TAB PO (08:58)
[2017-04-06] MEDS: CARVedilol 12.5 MG TAB PO ×2 (09:00→21:17)
[2017-04-06] MEDS: ENOXAPARIN 40 MG/0.4 ML SYRINGE (J1650) SC (09:00)
[2017-04-06] MEDS: LISINOPRIL 20 MG TAB PO (09:00)
[2017-04-06] MEDS: KETOCONAZOLE 2% CREAM TOP ×2 (09:01→21:18)
[2017-04-06] MEDS: ACETAMINOPHEN TAB 650MG DOSE (2X325MG) PO (21:17)
[2017-04-07] MEDS: FUROSEMIDE 100 MG/10 ML VIAL (J1940) IV ×2 (00:03→12:19)
[2017-04-07] MEDS: IPRATROPIUM 0.5MG/ALBUTEROL 2.5MG INH SOL UD 3ML (DUONEB)(J7620) NEB ×4 (01:25→20:00)
[2017-04-07] MEDS: AUGMENTIN 500 MG TAB PO ×3 (05:28→21:29)
[2017-04-07] MEDS: SLF 3 ML SYR IV ×3 (05:29→21:35)
[2017-04-07 06:27] LABS: MAGNESIUM LEVEL 2.1 MG/DL (1.8-2.4)
[2017-04-07 07:25] LABS: BASO % 0.4 % (0.0-1.0); EOS # 0.1 10^3/uL (0.0-0.50); EOS % 1.1 % (0.0-3.0); HEMATOCRIT 36.2 % (42.0-52.0); HEMOGLOBIN 11.2 g/dl (14.0-18.0); IMMATURE GRANULOCYTE % 0.4 % (0-0); LYMPH # 1.1 10^3/uL (1.5-4.5); LYMPH % 21.4 % (24.0-44.0); MEAN CORPUSCULAR HEMOGLOBIN 25.2 pg (27.0-33.0); MEAN CORPUSCULAR HGB CONC 30.9 g/dl (32.0-36.5); MEAN CORPUSCULAR VOLUME 81.3 fl (80.0-96.0); MONO # 0.8 10^3/uL (0.0-0.8); MONO % 14.6 % (0.0-5.0); NEUTROPHILS # 3.3 10^3/uL (1.8-7.7); NEUTROPHILS % 62.1 % (36.0-66.0); PLATELET COUNT, AUTOMATED 280 10^3/uL (150-450); RED BLOOD COUNT 4.45 10^6/uL (4.30-6.10); RED CELL DISTRIBUTION WIDTH 15.5 % (11.5-14.5); WHITE BLOOD COUNT 5.3 10^3/uL (4.0-10.0)
[2017-04-07] MEDS: HumaLOG INSULIN (NovoLOG) PER UNIT SC ×4 (07:30→21:00)
[2017-04-07 07:31] LABS: ANION GAP 4 MEQ/L (8-16); BLOOD UREA NITROGEN 18 MG/DL (7-18); CALCIUM LEVEL 8.2 MG/DL (8.5-10.1); CARBON DIOXIDE LEVEL 34 MEQ/L (21-32); CHLORIDE LEVEL 100 MEQ/L (98-107); CREATININE FOR GFR 0.92 MG/DL (0.70-1.30); GLOMERULAR FILTRATION RATE > 60.0 (>56); GLUCOSE, FASTING 133 MG/DL (70-105); POTASSIUM SERUM 3.8 MEQ/L (3.5-5.1); SODIUM LEVEL 138 MEQ/L (136-145)
[2017-04-07] MEDS: ENOXAPARIN 40 MG/0.4 ML SYRINGE (J1650) SC (07:43)
[2017-04-07] MEDS: guaiFENesin ER 600 MG TAB PO ×2 (09:03→21:29)
[2017-04-07] MEDS: ASPIRIN 81 MG ENTERIC TAB PO (09:03)
[2017-04-07] MEDS: LISINOPRIL 20 MG TAB PO (09:04)
[2017-04-07] MEDS: KETOCONAZOLE 2% CREAM TOP ×2 (09:04→21:30)
[2017-04-07] MEDS: CARVedilol 12.5 MG TAB PO ×2 (09:05→21:34)
[2017-04-07] MEDS: SPIRONOLACTONE 25 MG TAB PO (09:05)
[2017-04-07] MEDS: SODIUM CHLORIDE NASAL 0.65% SPRAY BTL (OCEAN) (12:19)
[2017-04-07] MEDS: CEPACOL LOZENGE PO (15:59)
[2017-04-08] MEDS: IPRATROPIUM 0.5MG/ALBUTEROL 2.5MG INH SOL UD 3ML (DUONEB)(J7620) NEB ×4 (02:00→20:07)
[2017-04-08] MEDS: AUGMENTIN 500 MG TAB PO ×3 (05:47→22:00)
[2017-04-08] MEDS: SLF 3 ML SYR IV ×3 (05:47→22:00)
[2017-04-08 06:09] LABS: HEMATOCRIT 37.3 % (42.0-52.0); HEMOGLOBIN 11.3 g/dl (14.0-18.0); MEAN CORPUSCULAR HEMOGLOBIN 24.4 pg (27.0-33.0); MEAN CORPUSCULAR HGB CONC 30.3 g/dl (32.0-36.5); MEAN CORPUSCULAR VOLUME 80.6 fl (80.0-96.0); PLATELET COUNT, AUTOMATED 285 10^3/uL (150-450); RED BLOOD COUNT 4.63 10^6/uL (4.30-6.10); RED CELL DISTRIBUTION WIDTH 15.4 % (11.5-14.5); WHITE BLOOD COUNT 5.7 10^3/uL (4.0-10.0)
[2017-04-08 06:28] LABS: ANION GAP 4 MEQ/L (8-16); BLOOD UREA NITROGEN 15 MG/DL (7-18); CALCIUM LEVEL 8.3 MG/DL (8.5-10.1); CARBON DIOXIDE LEVEL 34 MEQ/L (21-32); CHLORIDE LEVEL 102 MEQ/L (98-107); CREATININE FOR GFR 0.83 MG/DL (0.70-1.30); GLOMERULAR FILTRATION RATE > 60.0 (>56); GLUCOSE, FASTING 142 MG/DL (70-105); MAGNESIUM LEVEL 2.3 MG/DL (1.8-2.4); POTASSIUM SERUM 3.8 MEQ/L (3.5-5.1); SODIUM LEVEL 140 MEQ/L (136-145)
[2017-04-08] MEDS: HumaLOG INSULIN (NovoLOG) PER UNIT SC ×4 (07:17→20:20)
[2017-04-08] MEDS: ENOXAPARIN 40 MG/0.4 ML SYRINGE (J1650) SC (07:18)
[2017-04-08] MEDS: LISINOPRIL 20 MG TAB PO (08:27)
[2017-04-08] MEDS: CARVedilol 12.5 MG TAB PO ×2 (08:27→20:27)
[2017-04-08] MEDS: ASPIRIN 81 MG ENTERIC TAB PO (08:27)
[2017-04-08] MEDS: SPIRONOLACTONE 25 MG TAB PO (08:27)
[2017-04-08] MEDS: guaiFENesin ER 600 MG TAB PO ×2 (08:28→20:26)
[2017-04-08] MEDS: KETOCONAZOLE 2% CREAM TOP ×2 (08:28→20:27)
[2017-04-08] MEDS: SARNA LOTION 225 ML BTL TOP (12:16)
[2017-04-08] MEDS: FUROSEMIDE 100 MG/10 ML VIAL (J1940) IV ×3 (12:16→23:50)
[2017-04-08] MEDS: EUCERIN 120GM CREAM TOP (21:26)
[2017-04-09] MEDS: IPRATROPIUM 0.5MG/ALBUTEROL 2.5MG INH SOL UD 3ML (DUONEB)(J7620) NEB ×4 (01:48→21:39)
[2017-04-09] MEDS: SLF 3 ML SYR IV ×4 (05:31→22:00)
[2017-04-09] MEDS: AUGMENTIN 500 MG TAB PO ×3 (05:36→21:26)
[2017-04-09] MEDS: CEPACOL LOZENGE PO (06:08)
[2017-04-09] MEDS: HumaLOG INSULIN (NovoLOG) PER UNIT SC ×4 (07:30→21:00)
[2017-04-09] MEDS: ASPIRIN 81 MG ENTERIC TAB PO (07:57)
[2017-04-09] MEDS: CARVedilol 12.5 MG TAB PO ×2 (07:58→21:00)
[2017-04-09] MEDS: guaiFENesin ER 600 MG TAB PO ×2 (07:58→21:26)
[2017-04-09] MEDS: SPIRONOLACTONE 25 MG TAB PO (07:58)
[2017-04-09] MEDS: LISINOPRIL 20 MG TAB PO (07:58)
[2017-04-09] MEDS: ENOXAPARIN 40 MG/0.4 ML SYRINGE (J1650) SC (07:59)
[2017-04-09] MEDS: KETOCONAZOLE 2% CREAM TOP ×2 (07:59→21:27)
[2017-04-09 08:40] LABS: HEMATOCRIT 36.2 % (42.0-52.0); HEMOGLOBIN 11.2 g/dl (14.0-18.0); MEAN CORPUSCULAR HEMOGLOBIN 24.8 pg (27.0-33.0); MEAN CORPUSCULAR HGB CONC 30.9 g/dl (32.0-36.5); MEAN CORPUSCULAR VOLUME 80.1 fl (80.0-96.0); PLATELET COUNT, AUTOMATED 282 10^3/uL (150-450); RED BLOOD COUNT 4.52 10^6/uL (4.30-6.10); RED CELL DISTRIBUTION WIDTH 15.3 % (11.5-14.5); WHITE BLOOD COUNT 6.7 10^3/uL (4.0-10.0)
[2017-04-09 09:00] LABS: ANION GAP 6 MEQ/L (8-16); BLOOD UREA NITROGEN 15 MG/DL (7-18); CALCIUM LEVEL 8.1 MG/DL (8.5-10.1); CARBON DIOXIDE LEVEL 32 MEQ/L (21-32); CHLORIDE LEVEL 101 MEQ/L (98-107); CREATININE FOR GFR 0.78 MG/DL (0.70-1.30); GLOMERULAR FILTRATION RATE > 60.0 (>56); GLUCOSE, FASTING 191 MG/DL (70-105); SODIUM LEVEL 139 MEQ/L (136-145)
[2017-04-09] MEDS: FUROSEMIDE 100 MG/10 ML VIAL (J1940) IV (12:00)
[2017-04-10] MEDS: FUROSEMIDE 100 MG/10 ML VIAL (J1940) IV ×2 (00:25→12:00)
[2017-04-10] MEDS: IPRATROPIUM 0.5MG/ALBUTEROL 2.5MG INH SOL UD 3ML (DUONEB)(J7620) NEB ×4 (02:00→21:10)
[2017-04-10] MEDS: SLF 3 ML SYR IV ×3 (05:09→21:13)
[2017-04-10] MEDS: AUGMENTIN 500 MG TAB PO ×3 (05:52→21:12)
[2017-04-10 06:33] LABS: HEMATOCRIT 38.7 % (42.0-52.0); HEMOGLOBIN 11.9 g/dl (14.0-18.0); MEAN CORPUSCULAR HEMOGLOBIN 24.6 pg (27.0-33.0); MEAN CORPUSCULAR HGB CONC 30.7 g/dl (32.0-36.5); MEAN CORPUSCULAR VOLUME 80.1 fl (80.0-96.0); PLATELET COUNT, AUTOMATED 338 10^3/uL (150-450); RED BLOOD COUNT 4.83 10^6/uL (4.30-6.10); RED CELL DISTRIBUTION WIDTH 15.2 % (11.5-14.5); WHITE BLOOD COUNT 8.1 10^3/uL (4.0-10.0)
[2017-04-10 07:04] LABS: ANION GAP 7 MEQ/L (8-16); BLOOD UREA NITROGEN 13 MG/DL (7-18); CALCIUM LEVEL 8.6 MG/DL (8.5-10.1); CARBON DIOXIDE LEVEL 32 MEQ/L (21-32); CHLORIDE LEVEL 100 MEQ/L (98-107); CREATININE FOR GFR 0.86 MG/DL (0.70-1.30); GLOMERULAR FILTRATION RATE > 60.0 (>56); GLUCOSE, FASTING 150 MG/DL (70-100); POTASSIUM SERUM 4.1 MEQ/L (3.5-5.1); SODIUM LEVEL 139 MEQ/L (136-145)
[2017-04-10] MEDS: SPIRONOLACTONE 25 MG TAB PO (07:57)
[2017-04-10] MEDS: CARVedilol 12.5 MG TAB PO ×2 (07:58→21:12)
[2017-04-10] MEDS: LISINOPRIL 20 MG TAB PO (07:58)
[2017-04-10] MEDS: ASPIRIN 81 MG ENTERIC TAB PO (07:58)
[2017-04-10] MEDS: HumaLOG INSULIN (NovoLOG) PER UNIT SC ×4 (07:58→20:58)
[2017-04-10] MEDS: guaiFENesin ER 600 MG TAB PO ×2 (07:58→21:12)
[2017-04-10] MEDS: ENOXAPARIN 40 MG/0.4 ML SYRINGE (J1650) SC (07:59)
[2017-04-10] MEDS: KETOCONAZOLE 2% CREAM TOP ×2 (07:59→21:12)
[2017-04-11] MEDS: FUROSEMIDE 100 MG/10 ML VIAL (J1940) IV ×3 (00:14→23:39)
[2017-04-11] MEDS: IPRATROPIUM 0.5MG/ALBUTEROL 2.5MG INH SOL UD 3ML (DUONEB)(J7620) NEB ×4 (02:00→20:00)
[2017-04-11] MEDS: SLF 3 ML SYR IV ×3 (05:21→20:37)
[2017-04-11] MEDS: AUGMENTIN 500 MG TAB PO (06:16)
[2017-04-11 06:33] LABS: HEMATOCRIT 36.9 % (42.0-52.0); HEMOGLOBIN 11.2 g/dl (14.0-18.0); MEAN CORPUSCULAR HEMOGLOBIN 24.3 pg (27.0-33.0); MEAN CORPUSCULAR HGB CONC 30.4 g/dl (32.0-36.5); PLATELET COUNT, AUTOMATED 322 10^3/uL (150-450); RED BLOOD COUNT 4.61 10^6/uL (4.30-6.10); RED CELL DISTRIBUTION WIDTH 15.3 % (11.5-14.5); WHITE BLOOD COUNT 7.3 10^3/uL (4.0-10.0)
[2017-04-11 06:51] LABS: ANION GAP 5 MEQ/L (8-16); BLOOD UREA NITROGEN 9 MG/DL (7-18); CALCIUM LEVEL 8.5 MG/DL (8.5-10.1); CARBON DIOXIDE LEVEL 32 MEQ/L (21-32); CHLORIDE LEVEL 104 MEQ/L (98-107); CREATININE FOR GFR 0.75 MG/DL (0.70-1.30); GLOMERULAR FILTRATION RATE > 60.0 (>56); GLUCOSE, FASTING 144 MG/DL (70-100); POTASSIUM SERUM 4.2 MEQ/L (3.5-5.1); SODIUM LEVEL 141 MEQ/L (136-145)
[2017-04-11] MEDS: HumaLOG INSULIN (NovoLOG) PER UNIT SC ×4 (07:39→20:37)
[2017-04-11] MEDS: guaiFENesin ER 600 MG TAB PO ×2 (09:45→20:46)
[2017-04-11] MEDS: ASPIRIN 81 MG ENTERIC TAB PO (09:45)
[2017-04-11] MEDS: SPIRONOLACTONE 25 MG TAB PO (09:45)
[2017-04-11] MEDS: ENOXAPARIN 40 MG/0.4 ML SYRINGE (J1650) SC (09:46)
[2017-04-11] MEDS: CARVedilol 12.5 MG TAB PO ×2 (09:46→20:47)
[2017-04-11] MEDS: LISINOPRIL 20 MG TAB PO (09:46)
[2017-04-11] MEDS: KETOCONAZOLE 2% CREAM TOP ×2 (09:47→20:47)
[2017-04-12] MEDS: IPRATROPIUM 0.5MG/ALBUTEROL 2.5MG INH SOL UD 3ML (DUONEB)(J7620) NEB ×4 (02:00→20:00)
[2017-04-12] MEDS: SLF 3 ML SYR IV ×3 (06:00→20:29)
[2017-04-12 06:36] LABS: HEMOGLOBIN 11.5 g/dl (14.0-18.0); MEAN CORPUSCULAR HEMOGLOBIN 24.8 pg (27.0-33.0); MEAN CORPUSCULAR HGB CONC 31.1 g/dl (32.0-36.5); MEAN CORPUSCULAR VOLUME 79.7 fl (80.0-96.0); PLATELET COUNT, AUTOMATED 352 10^3/uL (150-450); RED BLOOD COUNT 4.64 10^6/uL (4.30-6.10); RED CELL DISTRIBUTION WIDTH 15.1 % (11.5-14.5); WHITE BLOOD COUNT 7.5 10^3/uL (4.0-10.0)
[2017-04-12 06:55] LABS: ANION GAP 6 MEQ/L (8-16); BLOOD UREA NITROGEN 10 MG/DL (7-18); CALCIUM LEVEL 8.4 MG/DL (8.5-10.1); CARBON DIOXIDE LEVEL 31 MEQ/L (21-32); CHLORIDE LEVEL 104 MEQ/L (98-107); CREATININE FOR GFR 0.75 MG/DL (0.70-1.30); GLOMERULAR FILTRATION RATE > 60.0 (>56); GLUCOSE, FASTING 145 MG/DL (70-100); POTASSIUM SERUM 3.9 MEQ/L (3.5-5.1); SODIUM LEVEL 141 MEQ/L (136-145)
[2017-04-12] MEDS: HumaLOG INSULIN (NovoLOG) PER UNIT SC ×4 (07:12→20:28)
[2017-04-12] MEDS: guaiFENesin ER 600 MG TAB PO ×2 (08:47→20:33)
[2017-04-12] MEDS: ASPIRIN 81 MG ENTERIC TAB PO (08:47)
[2017-04-12] MEDS: CARVedilol 12.5 MG TAB PO ×2 (08:48→20:34)
[2017-04-12] MEDS: SPIRONOLACTONE 25 MG TAB PO (08:48)
[2017-04-12] MEDS: LISINOPRIL 20 MG TAB PO (08:48)
[2017-04-12] MEDS: ENOXAPARIN 40 MG/0.4 ML SYRINGE (J1650) SC (08:50)
[2017-04-12] MEDS: KETOCONAZOLE 2% CREAM TOP ×2 (08:50→20:34)
[2017-04-12] MEDS: FUROSEMIDE 100 MG/10 ML VIAL (J1940) IV ×2 (11:50→23:58)
[2017-04-13] MEDS: IPRATROPIUM 0.5MG/ALBUTEROL 2.5MG INH SOL UD 3ML (DUONEB)(J7620) NEB ×4 (02:00→19:59)
[2017-04-13] MEDS: SLF 3 ML SYR IV ×3 (05:50→20:03)
[2017-04-13 06:51] LABS: HEMATOCRIT 37.8 % (42.0-52.0); HEMOGLOBIN 11.5 g/dl (14.0-18.0); MEAN CORPUSCULAR HEMOGLOBIN 24.2 pg (27.0-33.0); MEAN CORPUSCULAR HGB CONC 30.4 g/dl (32.0-36.5); MEAN CORPUSCULAR VOLUME 79.6 fl (80.0-96.0); PLATELET COUNT, AUTOMATED 348 10^3/uL (150-450); RED BLOOD COUNT 4.75 10^6/uL (4.30-6.10); RED CELL DISTRIBUTION WIDTH 15.2 % (11.5-14.5); WHITE BLOOD COUNT 6.9 10^3/uL (4.0-10.0)
[2017-04-13 07:02] LABS: ANION GAP 5 MEQ/L (8-16); BLOOD UREA NITROGEN 12 MG/DL (7-18); CALCIUM LEVEL 8.8 MG/DL (8.5-10.1); CARBON DIOXIDE LEVEL 33 MEQ/L (21-32); CHLORIDE LEVEL 102 MEQ/L (98-107); CREATININE FOR GFR 0.81 MG/DL (0.70-1.30); GLOMERULAR FILTRATION RATE > 60.0 (>56); GLUCOSE, FASTING 151 MG/DL (70-100); POTASSIUM SERUM 3.8 MEQ/L (3.5-5.1); SODIUM LEVEL 140 MEQ/L (136-145)
[2017-04-13] MEDS: HumaLOG INSULIN (NovoLOG) PER UNIT SC ×4 (07:22→19:56)
[2017-04-13] MEDS: ENOXAPARIN 40 MG/0.4 ML SYRINGE (J1650) SC (09:00)
[2017-04-13] MEDS: ASPIRIN 81 MG ENTERIC TAB PO (09:22)
[2017-04-13] MEDS: SPIRONOLACTONE 25 MG TAB PO (09:22)
[2017-04-13] MEDS: guaiFENesin ER 600 MG TAB PO ×2 (09:22→19:56)
[2017-04-13] MEDS: LISINOPRIL 20 MG TAB PO (09:23)
[2017-04-13] MEDS: KETOCONAZOLE 2% CREAM TOP ×2 (09:23→20:03)
[2017-04-13] MEDS: CARVedilol 12.5 MG TAB PO ×2 (09:23→19:56)
[2017-04-13] MEDS: FUROSEMIDE 100 MG/10 ML VIAL (J1940) IV ×2 (12:00→23:52)
[2017-04-13] MEDS: EUCERIN 120GM CREAM TOP ×3 (14:40→20:35)
[2017-04-14] MEDS: IPRATROPIUM 0.5MG/ALBUTEROL 2.5MG INH SOL UD 3ML (DUONEB)(J7620) NEB ×4 (00:55→20:00)
[2017-04-14] MEDS: SLF 3 ML SYR IV ×3 (04:46→21:05)
[2017-04-14 05:59] LABS: HEMATOCRIT 35.2 % (42.0-52.0); HEMOGLOBIN 10.8 g/dl (14.0-18.0); MEAN CORPUSCULAR HEMOGLOBIN 24.5 pg (27.0-33.0); MEAN CORPUSCULAR HGB CONC 30.7 g/dl (32.0-36.5); MEAN CORPUSCULAR VOLUME 79.8 fl (80.0-96.0); PLATELET COUNT, AUTOMATED 321 10^3/uL (150-450); RED BLOOD COUNT 4.41 10^6/uL (4.30-6.10)
[2017-04-14 06:21] LABS: ANION GAP 5 MEQ/L (8-16); BLOOD UREA NITROGEN 13 MG/DL (7-18); CALCIUM LEVEL 8.7 MG/DL (8.5-10.1); CARBON DIOXIDE LEVEL 30 MEQ/L (21-32); CHLORIDE LEVEL 106 MEQ/L (98-107); CREATININE FOR GFR 0.68 MG/DL (0.70-1.30); GLOMERULAR FILTRATION RATE > 60.0 (>56); GLUCOSE, FASTING 154 MG/DL (70-100); POTASSIUM SERUM 4.1 MEQ/L (3.5-5.1); SODIUM LEVEL 141 MEQ/L (136-145)
[2017-04-14] MEDS: HumaLOG INSULIN (NovoLOG) PER UNIT SC ×4 (07:49→21:00)
[2017-04-14] MEDS: SPIRONOLACTONE 25 MG TAB PO (08:28)
[2017-04-14] MEDS: LISINOPRIL 20 MG TAB PO (08:29)
[2017-04-14] MEDS: ASPIRIN 81 MG ENTERIC TAB PO (08:29)
[2017-04-14] MEDS: CARVedilol 12.5 MG TAB PO ×2 (08:29→21:05)
[2017-04-14] MEDS: KETOCONAZOLE 2% CREAM TOP ×2 (08:30→21:06)
[2017-04-14] MEDS: ENOXAPARIN 40 MG/0.4 ML SYRINGE (J1650) SC (08:30)
[2017-04-14] MEDS: guaiFENesin ER 600 MG TAB PO ×2 (08:30→21:04)
[2017-04-14] MEDS: EUCERIN 120GM CREAM TOP ×2 (08:30→21:00)
[2017-04-14] MEDS: FUROSEMIDE 100 MG/10 ML VIAL (J1940) IV (12:28)
[2017-04-14 13:44] LABS: APPEARANCE, URINE CLEAR (CLEAR); BACTERIA, URINE AUTO NEGATIVE (NEGATIVE); BILIRUBIN, URINE AUTO NEGATIVE (NEGATIVE); BLOOD, URINE BLOOD NEGATIVE (NEGATIVE); COLOR, URINE YELLOW (YELLOW); GLUCOSE, URINE (UA) AUTO NEGATIVE (NEGATIVE); KETONE, URINE AUTO NEGATIVE (NEGATIVE); LEUKOCYTE ESTERASE, URINE AUTO NEGATIVE (NEGATIVE); NITRITE, URINE AUTO NEGATIVE (NEGATIVE); PROTEIN, URINE AUTO NEGATIVE (NEGATIVE); RBC, URINE AUTO 1 /HPF (0-3); SPECIFIC GRAVITY URINE AUTO 1.005 (1.002-1.035); SQUAMOUS EPITHELIAL CELL UR AU 0 /HPF (0-6); UROBILINOGEN, URINE AUTO 0.2 mg/dL (0.0-2.0); WBC, URINE AUTO 0 /HPF (0-3)
[2017-04-15] MEDS: FUROSEMIDE 100 MG/10 ML VIAL (J1940) IV
[2017-04-15] MEDS: IPRATROPIUM 0.5MG/ALBUTEROL 2.5MG INH SOL UD 3ML (DUONEB)(J7620) NEB ×4 (01:25→20:00)
[2017-04-15] MEDS: SLF 3 ML SYR IV ×4 (05:28→22:00)
[2017-04-15] MEDS: HumaLOG INSULIN (NovoLOG) PER UNIT SC ×4 (07:20→20:57)
[2017-04-15] MEDS: KETOCONAZOLE 2% CREAM TOP ×2 (09:00→21:35)
[2017-04-15] MEDS: EUCERIN 120GM CREAM TOP ×2 (09:00→21:36)
[2017-04-15] MEDS: ENOXAPARIN 40 MG/0.4 ML SYRINGE (J1650) SC (09:00)
[2017-04-15] MEDS: CARVedilol 12.5 MG TAB PO ×2 (09:01→21:36)
[2017-04-15] MEDS: ASPIRIN 81 MG ENTERIC TAB PO (09:01)
[2017-04-15] MEDS: SPIRONOLACTONE 25 MG TAB PO (09:01)
[2017-04-15] MEDS: guaiFENesin ER 600 MG TAB PO ×2 (09:01→21:35)
[2017-04-15] MEDS: LISINOPRIL 20 MG TAB PO (09:01)
[2017-04-15] MEDS: FUROSEMIDE 20 MG TAB PO ×2 (09:02→17:27)
[2017-04-16] MEDS: IPRATROPIUM 0.5MG/ALBUTEROL 2.5MG INH SOL UD 3ML (DUONEB)(J7620) NEB ×4 (02:00→19:46)
[2017-04-16] MEDS: SLF 3 ML SYR IV (05:52)
[2017-04-16 07:13] LABS: HEMATOCRIT 36.4 % (42.0-52.0); HEMOGLOBIN 11.1 g/dl (14.0-18.0); MEAN CORPUSCULAR HEMOGLOBIN 24.4 pg (27.0-33.0); MEAN CORPUSCULAR HGB CONC 30.5 g/dl (32.0-36.5); PLATELET COUNT, AUTOMATED 339 10^3/uL (150-450); RED BLOOD COUNT 4.55 10^6/uL (4.30-6.10); RED CELL DISTRIBUTION WIDTH 15.1 % (11.5-14.5); WHITE BLOOD COUNT 5.9 10^3/uL (4.0-10.0)
[2017-04-16] MEDS: HumaLOG INSULIN (NovoLOG) PER UNIT SC ×4 (07:23→21:00)
[2017-04-16 07:37] LABS: ANION GAP 6 MEQ/L (8-16); BLOOD UREA NITROGEN 15 MG/DL (7-18); CALCIUM LEVEL 8.5 MG/DL (8.5-10.1); CARBON DIOXIDE LEVEL 29 MEQ/L (21-32); CHLORIDE LEVEL 107 MEQ/L (98-107); CREATININE FOR GFR 0.76 MG/DL (0.70-1.30); GLOMERULAR FILTRATION RATE > 60.0 (>56); GLUCOSE, FASTING 147 MG/DL (70-100); MAGNESIUM LEVEL 2.2 MG/DL (1.8-2.4); POTASSIUM SERUM 4.1 MEQ/L (3.5-5.1); SODIUM LEVEL 142 MEQ/L (136-145)
[2017-04-16] MEDS: guaiFENesin ER 600 MG TAB PO ×2 (08:35→21:20)
[2017-04-16] MEDS: CARVedilol 12.5 MG TAB PO ×2 (08:35→21:20)
[2017-04-16] MEDS: LISINOPRIL 20 MG TAB PO (08:35)
[2017-04-16] MEDS: ASPIRIN 81 MG ENTERIC TAB PO (08:35)
[2017-04-16] MEDS: SPIRONOLACTONE 25 MG TAB PO (08:35)
[2017-04-16] MEDS: FUROSEMIDE 20 MG TAB PO ×2 (08:36→21:20)
[2017-04-16] MEDS: ENOXAPARIN 40 MG/0.4 ML SYRINGE (J1650) SC (08:36)
[2017-04-16] MEDS: EUCERIN 120GM CREAM TOP ×2 (08:37→21:00)
[2017-04-16] MEDS: KETOCONAZOLE 2% CREAM TOP ×2 (08:37→21:21)
[2017-04-17] MEDS: IPRATROPIUM 0.5MG/ALBUTEROL 2.5MG INH SOL UD 3ML (DUONEB)(J7620) NEB ×5 (02:00→23:23)
[2017-04-17 07:00] LABS: HEMATOCRIT 36.5 % (42.0-52.0); HEMOGLOBIN 11.4 g/dl (14.0-18.0); MEAN CORPUSCULAR HEMOGLOBIN 24.5 pg (27.0-33.0); MEAN CORPUSCULAR HGB CONC 31.2 g/dl (32.0-36.5); MEAN CORPUSCULAR VOLUME 78.5 fl (80.0-96.0); PLATELET COUNT, AUTOMATED 354 10^3/uL (150-450); RED BLOOD COUNT 4.65 10^6/uL (4.30-6.10); RED CELL DISTRIBUTION WIDTH 15.1 % (11.5-14.5); WHITE BLOOD COUNT 7.3 10^3/uL (4.0-10.0)
[2017-04-17 07:18] LABS: ANION GAP 7 MEQ/L (8-16); BLOOD UREA NITROGEN 13 MG/DL (7-18); CALCIUM LEVEL 8.6 MG/DL (8.5-10.1); CARBON DIOXIDE LEVEL 28 MEQ/L (21-32); CHLORIDE LEVEL 104 MEQ/L (98-107); CREATININE FOR GFR 0.73 MG/DL (0.70-1.30); GLOMERULAR FILTRATION RATE > 60.0 (>56); GLUCOSE, FASTING 160 MG/DL (70-100); POTASSIUM SERUM 3.7 MEQ/L (3.5-5.1); SODIUM LEVEL 139 MEQ/L (136-145)
[2017-04-17] MEDS: HumaLOG INSULIN (NovoLOG) PER UNIT SC ×4 (07:30→21:00)
[2017-04-17] MEDS: metFORMIN (GLUCOPHAGE) 500 MG TAB PO ×2 (08:00→17:32)
[2017-04-17] MEDS: FUROSEMIDE 20 MG TAB PO ×2 (08:37→21:21)
[2017-04-17] MEDS: ENOXAPARIN 40 MG/0.4 ML SYRINGE (J1650) SC (09:00)
[2017-04-17] MEDS: EUCERIN 120GM CREAM TOP ×2 (09:00→21:00)
[2017-04-17] MEDS: LISINOPRIL 20 MG TAB PO (09:23)
[2017-04-17] MEDS: SPIRONOLACTONE 25 MG TAB PO (09:25)
[2017-04-17] MEDS: ASPIRIN 81 MG ENTERIC TAB PO (09:25)
[2017-04-17] MEDS: guaiFENesin ER 600 MG TAB PO ×2 (09:25→21:21)
[2017-04-17] MEDS: KETOCONAZOLE 2% CREAM TOP ×2 (09:25→21:22)
[2017-04-17] MEDS: CARVedilol 12.5 MG TAB PO ×2 (09:26→21:22)
[2017-04-18 06:28] LABS: HEMATOCRIT 37.4 % (42.0-52.0); HEMOGLOBIN 11.5 g/dl (14.0-18.0); MEAN CORPUSCULAR HEMOGLOBIN 24.2 pg (27.0-33.0); MEAN CORPUSCULAR HGB CONC 30.7 g/dl (32.0-36.5); MEAN CORPUSCULAR VOLUME 78.7 fl (80.0-96.0); PLATELET COUNT, AUTOMATED 386 10^3/uL (150-450); RED BLOOD COUNT 4.75 10^6/uL (4.30-6.10); RED CELL DISTRIBUTION WIDTH 15.1 % (11.5-14.5); WHITE BLOOD COUNT 6.4 10^3/uL (4.0-10.0)
[2017-04-18 06:44] LABS: ANION GAP 5 MEQ/L (8-16); BLOOD UREA NITROGEN 15 MG/DL (7-18); CARBON DIOXIDE LEVEL 31 MEQ/L (21-32); CHLORIDE LEVEL 103 MEQ/L (98-107); CREATININE FOR GFR 0.74 MG/DL (0.70-1.30); GLOMERULAR FILTRATION RATE > 60.0 (>56); GLUCOSE, FASTING 154 MG/DL (70-100); POTASSIUM SERUM 3.6 MEQ/L (3.5-5.1); SODIUM LEVEL 139 MEQ/L (136-145)
[2017-04-18] MEDS: IPRATROPIUM 0.5MG/ALBUTEROL 2.5MG INH SOL UD 3ML (DUONEB)(J7620) NEB ×3 (07:19→20:00)
[2017-04-18] MEDS: HumaLOG INSULIN (NovoLOG) PER UNIT SC ×4 (07:23→21:34)
[2017-04-18] MEDS: metFORMIN (GLUCOPHAGE) 500 MG TAB PO ×2 (07:23→17:33)
[2017-04-18] MEDS: ENOXAPARIN 40 MG/0.4 ML SYRINGE (J1650) SC (07:24)
[2017-04-18] MEDS: EUCERIN 120GM CREAM TOP ×2 (09:00→21:43)
[2017-04-18] MEDS: FUROSEMIDE 20 MG TAB PO ×2 (09:00→21:41)
[2017-04-18] MEDS: KETOCONAZOLE 2% CREAM TOP ×2 (09:08→21:42)
[2017-04-18] MEDS: guaiFENesin ER 600 MG TAB PO ×2 (09:08→21:42)
[2017-04-18] MEDS: LISINOPRIL 20 MG TAB PO (09:08)
[2017-04-18] MEDS: ASPIRIN 81 MG ENTERIC TAB PO (09:08)
[2017-04-18] MEDS: SPIRONOLACTONE 25 MG TAB PO (09:08)
[2017-04-18] MEDS: CARVedilol 12.5 MG TAB PO ×2 (09:09→21:42)
[2017-04-19] MEDS: IPRATROPIUM 0.5MG/ALBUTEROL 2.5MG INH SOL UD 3ML (DUONEB)(J7620) NEB ×4 (01:30→20:00)
[2017-04-19] MEDS: HumaLOG INSULIN (NovoLOG) PER UNIT SC ×4 (07:07→21:00)
[2017-04-19] MEDS: metFORMIN (GLUCOPHAGE) 500 MG TAB PO ×2 (07:08→16:23)
[2017-04-19] MEDS: ENOXAPARIN 40 MG/0.4 ML SYRINGE (J1650) SC (07:09)
[2017-04-19] MEDS: KETOCONAZOLE 2% CREAM TOP ×2 (09:00→21:32)
[2017-04-19] MEDS: EUCERIN 120GM CREAM TOP ×2 (09:00→21:00)
[2017-04-19] MEDS: FUROSEMIDE 20 MG TAB PO ×2 (09:00→21:31)
[2017-04-19] MEDS: SPIRONOLACTONE 25 MG TAB PO (09:34)
[2017-04-19] MEDS: CARVedilol 12.5 MG TAB PO ×2 (09:34→21:32)
[2017-04-19] MEDS: LISINOPRIL 20 MG TAB PO (09:34)
[2017-04-19] MEDS: guaiFENesin ER 600 MG TAB PO ×2 (09:34→21:31)
[2017-04-19] MEDS: ASPIRIN 81 MG ENTERIC TAB PO (09:34)
[2017-04-20] MEDS: IPRATROPIUM 0.5MG/ALBUTEROL 2.5MG INH SOL UD 3ML (DUONEB)(J7620) NEB ×4 (02:00→20:00)
[2017-04-20 06:18] LABS: HEMATOCRIT 39.5 % (42.0-52.0); HEMOGLOBIN 12.2 g/dl (14.0-18.0); MEAN CORPUSCULAR HEMOGLOBIN 24.5 pg (27.0-33.0); MEAN CORPUSCULAR HGB CONC 30.9 g/dl (32.0-36.5); MEAN CORPUSCULAR VOLUME 79.3 fl (80.0-96.0); PLATELET COUNT, AUTOMATED 389 10^3/uL (150-450); RED BLOOD COUNT 4.98 10^6/uL (4.30-6.10); RED CELL DISTRIBUTION WIDTH 15.2 % (11.5-14.5); WHITE BLOOD COUNT 6.4 10^3/uL (4.0-10.0)
[2017-04-20 06:35] LABS: ANION GAP 5 MEQ/L (8-16); BLOOD UREA NITROGEN 18 MG/DL (7-18); CALCIUM LEVEL 8.8 MG/DL (8.5-10.1); CARBON DIOXIDE LEVEL 30 MEQ/L (21-32); CHLORIDE LEVEL 106 MEQ/L (98-107); CREATININE FOR GFR 0.83 MG/DL (0.70-1.30); GLOMERULAR FILTRATION RATE > 60.0 (>56); GLUCOSE, FASTING 174 MG/DL (70-100); MAGNESIUM LEVEL 2.1 MG/DL (1.8-2.4); POTASSIUM SERUM 4.4 MEQ/L (3.5-5.1); SODIUM LEVEL 141 MEQ/L (136-145)
[2017-04-20] MEDS: HumaLOG INSULIN (NovoLOG) PER UNIT SC ×4 (07:30→20:20)
[2017-04-20] MEDS: metFORMIN (GLUCOPHAGE) 500 MG TAB PO ×2 (07:33→16:47)
[2017-04-20] MEDS: FUROSEMIDE 20 MG TAB PO ×2 (08:34→20:41)
[2017-04-20] MEDS: ASPIRIN 81 MG ENTERIC TAB PO (08:39)
[2017-04-20] MEDS: guaiFENesin ER 600 MG TAB PO ×2 (08:39→20:41)
[2017-04-20] MEDS: SPIRONOLACTONE 25 MG TAB PO (08:39)
[2017-04-20] MEDS: ENOXAPARIN 40 MG/0.4 ML SYRINGE (J1650) SC (08:40)
[2017-04-20] MEDS: KETOCONAZOLE 2% CREAM TOP ×2 (08:41→20:41)
[2017-04-20] MEDS: EUCERIN 120GM CREAM TOP ×2 (08:41→20:42)
[2017-04-20] MEDS: LISINOPRIL 20 MG TAB PO (08:45)
[2017-04-20] MEDS: CARVedilol 12.5 MG TAB PO ×2 (08:47→20:40)
[2017-04-21] MEDS: IPRATROPIUM 0.5MG/ALBUTEROL 2.5MG INH SOL UD 3ML (DUONEB)(J7620) NEB ×4 (02:00→20:00)
[2017-04-21] MEDS: metFORMIN (GLUCOPHAGE) 500 MG TAB PO ×2 (07:26→16:40)
[2017-04-21] MEDS: HumaLOG INSULIN (NovoLOG) PER UNIT SC ×4 (07:26→21:00)
[2017-04-21] MEDS: CARVedilol 12.5 MG TAB PO ×2 (07:27→21:00)
[2017-04-21] MEDS: ENOXAPARIN 40 MG/0.4 ML SYRINGE (J1650) SC (07:27)
[2017-04-21] MEDS: FUROSEMIDE 20 MG TAB PO ×2 (08:59→21:00)
[2017-04-21] MEDS: SPIRONOLACTONE 25 MG TAB PO (08:59)
[2017-04-21] MEDS: ASPIRIN 81 MG ENTERIC TAB PO (08:59)
[2017-04-21] MEDS: guaiFENesin ER 600 MG TAB PO ×2 (08:59→21:37)
[2017-04-21] MEDS: LISINOPRIL 20 MG TAB PO (08:59)
[2017-04-21] MEDS: KETOCONAZOLE 2% CREAM TOP ×2 (09:00→21:37)
[2017-04-21] MEDS: EUCERIN 120GM CREAM TOP ×2 (09:00→21:38)
[2017-04-22 06:26] LABS: HEMATOCRIT 41.3 % (42.0-52.0); HEMOGLOBIN 12.7 g/dl (14.0-18.0); MEAN CORPUSCULAR HEMOGLOBIN 24.3 pg (27.0-33.0); MEAN CORPUSCULAR HGB CONC 30.8 g/dl (32.0-36.5); PLATELET COUNT, AUTOMATED 405 10^3/uL (150-450); RED BLOOD COUNT 5.23 10^6/uL (4.30-6.10); WHITE BLOOD COUNT 6.4 10^3/uL (4.0-10.0)
[2017-04-22 06:44] LABS: ANION GAP 6 MEQ/L (8-16); BLOOD UREA NITROGEN 17 MG/DL (7-18); CALCIUM LEVEL 8.7 MG/DL (8.5-10.1); CARBON DIOXIDE LEVEL 30 MEQ/L (21-32); CHLORIDE LEVEL 104 MEQ/L (98-107); CREATININE FOR GFR 0.69 MG/DL (0.70-1.30); GLOMERULAR FILTRATION RATE > 60.0 (>56); GLUCOSE, FASTING 165 MG/DL (70-100); MAGNESIUM LEVEL 2.1 MG/DL (1.8-2.4); POTASSIUM SERUM 4.2 MEQ/L (3.5-5.1); SODIUM LEVEL 140 MEQ/L (136-145)
[2017-04-22] MEDS: HumaLOG INSULIN (NovoLOG) PER UNIT SC ×4 (07:30→21:00)
[2017-04-22] MEDS: metFORMIN (GLUCOPHAGE) 500 MG TAB PO ×2 (08:00→17:33)
[2017-04-22] MEDS: IPRATROPIUM 0.5MG/ALBUTEROL 2.5MG INH SOL UD 3ML (DUONEB)(J7620) NEB ×3 (08:00→20:00)
[2017-04-22] MEDS: ASPIRIN 81 MG ENTERIC TAB PO (08:58)
[2017-04-22] MEDS: KETOCONAZOLE 2% CREAM TOP ×2 (08:58→20:46)
[2017-04-22] MEDS: FUROSEMIDE 20 MG TAB PO ×2 (08:58→20:44)
[2017-04-22] MEDS: LISINOPRIL 20 MG TAB PO (08:58)
[2017-04-22] MEDS: guaiFENesin ER 600 MG TAB PO ×2 (08:58→20:43)
[2017-04-22] MEDS: SPIRONOLACTONE 25 MG TAB PO (08:58)
[2017-04-22] MEDS: EUCERIN 120GM CREAM TOP ×2 (08:59→20:47)
[2017-04-22] MEDS: CARVedilol 12.5 MG TAB PO ×2 (09:00→21:00)
[2017-04-22] MEDS: ENOXAPARIN 40 MG/0.4 ML SYRINGE (J1650) SC (09:00)
[2017-04-23] MEDS: IPRATROPIUM 0.5MG/ALBUTEROL 2.5MG INH SOL UD 3ML (DUONEB)(J7620) NEB ×5 (01:20→23:47)
[2017-04-23] MEDS: HumaLOG INSULIN (NovoLOG) PER UNIT SC ×4 (07:29→19:50)
[2017-04-23] MEDS: metFORMIN (GLUCOPHAGE) 500 MG TAB PO ×2 (07:29→16:25)
[2017-04-23] MEDS: FUROSEMIDE 20 MG TAB PO ×2 (07:56→19:50)
[2017-04-23] MEDS: ASPIRIN 81 MG ENTERIC TAB PO (07:56)
[2017-04-23] MEDS: SPIRONOLACTONE 25 MG TAB PO (07:56)
[2017-04-23] MEDS: guaiFENesin ER 600 MG TAB PO ×2 (07:56→20:54)
[2017-04-23] MEDS: EUCERIN 120GM CREAM TOP ×2 (07:57→20:53)
[2017-04-23] MEDS: KETOCONAZOLE 2% CREAM TOP ×2 (07:57→20:54)
[2017-04-23] MEDS: ENOXAPARIN 40 MG/0.4 ML SYRINGE (J1650) SC (07:57)
[2017-04-23] MEDS: LISINOPRIL 20 MG TAB PO (08:00)
[2017-04-23] MEDS: CARVedilol 12.5 MG TAB PO ×2 (08:00→19:49)
[2017-04-24 05:55] LABS: HEMATOCRIT 45.5 % (42.0-52.0); MEAN CORPUSCULAR HEMOGLOBIN 23.9 pg (27.0-33.0); MEAN CORPUSCULAR HGB CONC 30.8 g/dl (32.0-36.5); MEAN CORPUSCULAR VOLUME 77.8 fl (80.0-96.0); PLATELET COUNT, AUTOMATED 399 10^3/uL (150-450); RED BLOOD COUNT 5.85 10^6/uL (4.30-6.10); RED CELL DISTRIBUTION WIDTH 15.4 % (11.5-14.5); WHITE BLOOD COUNT 7.1 10^3/uL (4.0-10.0)
[2017-04-24 06:19] LABS: ANION GAP 5 MEQ/L (8-16); BLOOD UREA NITROGEN 24 MG/DL (7-18); CALCIUM LEVEL 9.2 MG/DL (8.5-10.1); CARBON DIOXIDE LEVEL 31 MEQ/L (21-32); CHLORIDE LEVEL 103 MEQ/L (98-107); CREATININE FOR GFR 0.77 MG/DL (0.70-1.30); GLOMERULAR FILTRATION RATE > 60.0 (>56); GLUCOSE, FASTING 181 MG/DL (70-100); MAGNESIUM LEVEL 2.1 MG/DL (1.8-2.4); POTASSIUM SERUM 4.1 MEQ/L (3.5-5.1); SODIUM LEVEL 139 MEQ/L (136-145)
[2017-04-24] MEDS: metFORMIN (GLUCOPHAGE) 500 MG TAB PO ×2 (07:13→16:22)
[2017-04-24] MEDS: HumaLOG INSULIN (NovoLOG) PER UNIT SC ×4 (07:13→21:16)
[2017-04-24] MEDS: IPRATROPIUM 0.5MG/ALBUTEROL 2.5MG INH SOL UD 3ML (DUONEB)(J7620) NEB ×3 (07:59→20:00)
[2017-04-24] MEDS: guaiFENesin ER 600 MG TAB PO ×2 (08:45→20:55)
[2017-04-24] MEDS: SPIRONOLACTONE 25 MG TAB PO (08:45)
[2017-04-24] MEDS: ASPIRIN 81 MG ENTERIC TAB PO (08:45)
[2017-04-24] MEDS: FUROSEMIDE 20 MG TAB PO ×2 (08:45→21:16)
[2017-04-24] MEDS: KETOCONAZOLE 2% CREAM TOP ×2 (08:47→21:16)
[2017-04-24] MEDS: EUCERIN 120GM CREAM TOP ×2 (08:47→20:56)
[2017-04-24] MEDS: LISINOPRIL 20 MG TAB PO (08:47)
[2017-04-24] MEDS: ENOXAPARIN 40 MG/0.4 ML SYRINGE (J1650) SC (08:47)
[2017-04-24] MEDS: CARVedilol 12.5 MG TAB PO ×2 (08:48→21:16)
[2017-04-25] MEDS: IPRATROPIUM 0.5MG/ALBUTEROL 2.5MG INH SOL UD 3ML (DUONEB)(J7620) NEB (00:59)
[2017-04-25] MEDS: HumaLOG INSULIN (NovoLOG) PER UNIT SC ×4 (07:30→21:00)
[2017-04-25] MEDS: metFORMIN (GLUCOPHAGE) 500 MG TAB PO ×2 (08:00→17:17)
[2017-04-25] MEDS: CARVedilol 12.5 MG TAB PO ×2 (09:00→21:00)
[2017-04-25] MEDS: ENOXAPARIN 40 MG/0.4 ML SYRINGE (J1650) SC (09:00)
[2017-04-25] MEDS: SPIRONOLACTONE 25 MG TAB PO (09:53)
[2017-04-25] MEDS: ASPIRIN 81 MG ENTERIC TAB PO (09:53)
[2017-04-25] MEDS: FUROSEMIDE 20 MG TAB PO ×2 (09:53→21:00)
[2017-04-25] MEDS: LISINOPRIL 20 MG TAB PO (09:54)
[2017-04-25] MEDS: guaiFENesin ER 600 MG TAB PO ×2 (09:54→21:46)
[2017-04-25] MEDS: KETOCONAZOLE 2% CREAM TOP ×2 (09:56→21:00)
[2017-04-25] MEDS: EUCERIN 120GM CREAM TOP ×2 (09:57→21:00)
[2017-04-26 06:53] LABS: HEMATOCRIT 46.5 % (42.0-52.0); HEMOGLOBIN 14.3 g/dl (14.0-18.0); MEAN CORPUSCULAR HEMOGLOBIN 23.9 pg (27.0-33.0); MEAN CORPUSCULAR HGB CONC 30.8 g/dl (32.0-36.5); MEAN CORPUSCULAR VOLUME 77.8 fl (80.0-96.0); PLATELET COUNT, AUTOMATED 384 10^3/uL (150-450); RED BLOOD COUNT 5.98 10^6/uL (4.30-6.10); RED CELL DISTRIBUTION WIDTH 15.8 % (11.5-14.5); WHITE BLOOD COUNT 6.2 10^3/uL (4.0-10.0)
[2017-04-26] MEDS: HumaLOG INSULIN (NovoLOG) PER UNIT SC ×4 (07:26→21:00)
[2017-04-26] MEDS: metFORMIN (GLUCOPHAGE) 500 MG TAB PO ×2 (07:26→16:54)
[2017-04-26 07:27] LABS: ANION GAP 7 MEQ/L (8-16); BLOOD UREA NITROGEN 23 MG/DL (7-18); CALCIUM LEVEL 8.9 MG/DL (8.5-10.1); CARBON DIOXIDE LEVEL 28 MEQ/L (21-32); CHLORIDE LEVEL 104 MEQ/L (98-107); CREATININE FOR GFR 0.76 MG/DL (0.70-1.30); GLOMERULAR FILTRATION RATE > 60.0 (>56); GLUCOSE, FASTING 169 MG/DL (70-100); MAGNESIUM LEVEL 2.2 MG/DL (1.8-2.4); POTASSIUM SERUM 4.5 MEQ/L (3.5-5.1); SODIUM LEVEL 139 MEQ/L (136-145)
[2017-04-26] MEDS: CARVedilol 12.5 MG TAB PO ×2 (07:54→21:00)
[2017-04-26] MEDS: ENOXAPARIN 40 MG/0.4 ML SYRINGE (J1650) SC (07:54)
[2017-04-26] MEDS: EUCERIN 120GM CREAM TOP ×2 (08:51→21:42)
[2017-04-26] MEDS: FUROSEMIDE 20 MG TAB PO ×2 (08:52→21:43)
[2017-04-26] MEDS: SPIRONOLACTONE 25 MG TAB PO (08:52)
[2017-04-26] MEDS: KETOCONAZOLE 2% CREAM TOP ×2 (08:52→21:42)
[2017-04-26] MEDS: guaiFENesin ER 600 MG TAB PO ×2 (08:52→21:44)
[2017-04-26] MEDS: LISINOPRIL 20 MG TAB PO (08:52)
[2017-04-26] MEDS: ASPIRIN 81 MG ENTERIC TAB PO (08:52)
[2017-04-27] MEDS: metFORMIN (GLUCOPHAGE) 500 MG TAB PO ×2 (07:18→17:05)
[2017-04-27] MEDS: HumaLOG INSULIN (NovoLOG) PER UNIT SC ×4 (07:18→21:00)
[2017-04-27] MEDS: ENOXAPARIN 40 MG/0.4 ML SYRINGE (J1650) SC (07:47)
[2017-04-27] MEDS: FUROSEMIDE 20 MG TAB PO ×2 (07:49→21:32)
[2017-04-27] MEDS: CARVedilol 12.5 MG TAB PO ×2 (07:49→21:00)
[2017-04-27] MEDS: KETOCONAZOLE 2% CREAM TOP ×2 (09:03→21:32)
[2017-04-27] MEDS: EUCERIN 120GM CREAM TOP ×2 (09:03→21:32)
[2017-04-27] MEDS: guaiFENesin ER 600 MG TAB PO ×2 (09:03→21:31)
[2017-04-27] MEDS: ASPIRIN 81 MG ENTERIC TAB PO (09:03)
[2017-04-27] MEDS: SPIRONOLACTONE 25 MG TAB PO (09:03)
[2017-04-27] MEDS: LISINOPRIL 20 MG TAB PO (09:05)
[2017-04-28 05:49] LABS: HEMATOCRIT 46.5 % (42.0-52.0); HEMOGLOBIN 14.5 g/dl (14.0-18.0); MEAN CORPUSCULAR HEMOGLOBIN 24.3 pg (27.0-33.0); MEAN CORPUSCULAR HGB CONC 31.2 g/dl (32.0-36.5); MEAN CORPUSCULAR VOLUME 77.9 fl (80.0-96.0); PLATELET COUNT, AUTOMATED 335 10^3/uL (150-450); RED BLOOD COUNT 5.97 10^6/uL (4.30-6.10); RED CELL DISTRIBUTION WIDTH 15.8 % (11.5-14.5); WHITE BLOOD COUNT 6.3 10^3/uL (4.0-10.0)
[2017-04-28 06:08] LABS: BLOOD UREA NITROGEN 27 MG/DL (7-18); CREATININE FOR GFR 0.87 MG/DL (0.70-1.30); GLUCOSE, FASTING 174 MG/DL (70-100)
[2017-04-28 06:09] LABS: ANION GAP 8 MEQ/L (8-16); CARBON DIOXIDE LEVEL 30 MEQ/L (21-32); CHLORIDE LEVEL 101 MEQ/L (98-107); GLOMERULAR FILTRATION RATE > 60.0 (>56); POTASSIUM SERUM 4.3 MEQ/L (3.5-5.1); SODIUM LEVEL 139 MEQ/L (136-145)
[2017-04-28] MEDS: HumaLOG INSULIN (NovoLOG) PER UNIT SC ×4 (07:30→20:57)
[2017-04-28] MEDS: metFORMIN (GLUCOPHAGE) 500 MG TAB PO ×2 (07:35→16:01)
[2017-04-28] MEDS: CARVedilol 12.5 MG TAB PO ×2 (08:16→20:57)
[2017-04-28] MEDS: FUROSEMIDE 40 MG TAB PO (08:21)
[2017-04-28] MEDS: guaiFENesin ER 600 MG TAB PO ×2 (08:21→20:54)
[2017-04-28] MEDS: SPIRONOLACTONE 25 MG TAB PO (08:21)
[2017-04-28] MEDS: ASPIRIN 81 MG ENTERIC TAB PO (08:21)
[2017-04-28] MEDS: KETOCONAZOLE 2% CREAM TOP ×2 (08:23→21:00)
[2017-04-28] MEDS: LISINOPRIL 20 MG TAB PO (08:23)
[2017-04-28] MEDS: EUCERIN 120GM CREAM TOP ×2 (08:23→20:56)
[2017-04-29] MEDS: HumaLOG INSULIN (NovoLOG) PER UNIT SC ×4 (07:01→20:43)
[2017-04-29] MEDS: metFORMIN (GLUCOPHAGE) 500 MG TAB PO ×2 (07:02→15:21)
[2017-04-29] MEDS: CARVedilol 12.5 MG TAB PO ×2 (09:00→20:43)
[2017-04-29] MEDS: SPIRONOLACTONE 25 MG TAB PO (09:14)
[2017-04-29] MEDS: FUROSEMIDE 40 MG TAB PO (09:15)
[2017-04-29] MEDS: guaiFENesin ER 600 MG TAB PO ×2 (09:15→21:51)
[2017-04-29] MEDS: ASPIRIN 81 MG ENTERIC TAB PO (09:15)
[2017-04-29] MEDS: LISINOPRIL 20 MG TAB PO (09:16)
[2017-04-29] MEDS: KETOCONAZOLE 2% CREAM TOP ×2 (09:16→21:52)
[2017-04-29] MEDS: EUCERIN 120GM CREAM TOP ×2 (09:16→21:53)
[2017-04-30 06:31] LABS: HEMOGLOBIN 14.5 g/dl (14.0-18.0); MEAN CORPUSCULAR HGB CONC 30.9 g/dl (32.0-36.5); MEAN CORPUSCULAR VOLUME 77.9 fl (80.0-96.0); PLATELET COUNT, AUTOMATED 310 10^3/uL (150-450); RED BLOOD COUNT 6.03 10^6/uL (4.30-6.10); RED CELL DISTRIBUTION WIDTH 16.7 % (11.5-14.5); WHITE BLOOD COUNT 5.5 10^3/uL (4.0-10.0)
[2017-04-30 06:54] LABS: ANION GAP 8 MEQ/L (8-16); BLOOD UREA NITROGEN 25 MG/DL (7-18); CALCIUM LEVEL 9.2 MG/DL (8.5-10.1); CARBON DIOXIDE LEVEL 27 MEQ/L (21-32); CHLORIDE LEVEL 103 MEQ/L (98-107); CREATININE FOR GFR 0.77 MG/DL (0.70-1.30); GLOMERULAR FILTRATION RATE > 60.0 (>56); GLUCOSE, FASTING 175 MG/DL (70-100); MAGNESIUM LEVEL 2.1 MG/DL (1.8-2.4); POTASSIUM SERUM 4.5 MEQ/L (3.5-5.1); SODIUM LEVEL 138 MEQ/L (136-145)
[2017-04-30] MEDS: HumaLOG INSULIN (NovoLOG) PER UNIT SC ×4 (07:01→21:00)
[2017-04-30] MEDS: metFORMIN (GLUCOPHAGE) 500 MG TAB PO ×2 (07:01→17:25)
[2017-04-30] MEDS: CARVedilol 12.5 MG TAB PO ×2 (07:54→21:00)
[2017-04-30] MEDS: EUCERIN 120GM CREAM TOP ×2 (09:00→21:31)
[2017-04-30] MEDS: FUROSEMIDE 40 MG TAB PO (09:36)
[2017-04-30] MEDS: LISINOPRIL 20 MG TAB PO (09:36)
[2017-04-30] MEDS: SPIRONOLACTONE 25 MG TAB PO (09:36)
[2017-04-30] MEDS: guaiFENesin ER 600 MG TAB PO ×2 (09:36→21:30)
[2017-04-30] MEDS: KETOCONAZOLE 2% CREAM TOP ×2 (09:37→21:31)
[2017-04-30] MEDS: ASPIRIN 81 MG ENTERIC TAB PO (09:37)
[2017-05-01] MEDS: HumaLOG INSULIN (NovoLOG) PER UNIT SC ×4 (07:30→21:00)
[2017-05-01] MEDS: CARVedilol 12.5 MG TAB PO ×2 (07:40→21:00)
[2017-05-01] MEDS: metFORMIN (GLUCOPHAGE) 500 MG TAB PO ×2 (07:40→16:14)
[2017-05-01] MEDS: EUCERIN 120GM CREAM TOP ×2 (09:00→21:48)
[2017-05-01] MEDS: FUROSEMIDE 40 MG TAB PO (09:26)
[2017-05-01] MEDS: KETOCONAZOLE 2% CREAM TOP ×2 (09:26→21:48)
[2017-05-01] MEDS: ASPIRIN 81 MG ENTERIC TAB PO (09:26)
[2017-05-01] MEDS: LISINOPRIL 20 MG TAB PO (09:26)
[2017-05-01] MEDS: SPIRONOLACTONE 25 MG TAB PO (09:26)
[2017-05-01] MEDS: guaiFENesin ER 600 MG TAB PO ×2 (09:26→21:28)
[2017-05-02 06:26] LABS: HEMATOCRIT 47.3 % (42.0-52.0); HEMOGLOBIN 14.3 g/dl (14.0-18.0); MEAN CORPUSCULAR HEMOGLOBIN 23.8 pg (27.0-33.0); MEAN CORPUSCULAR HGB CONC 30.2 g/dl (32.0-36.5); MEAN CORPUSCULAR VOLUME 78.8 fl (80.0-96.0); PLATELET COUNT, AUTOMATED 285 10^3/uL (150-450); RED CELL DISTRIBUTION WIDTH 16.1 % (11.5-14.5); WHITE BLOOD COUNT 6.3 10^3/uL (4.0-10.0)
[2017-05-02 06:38] LABS: ANION GAP 4 MEQ/L (8-16); BLOOD UREA NITROGEN 23 MG/DL (7-18); CALCIUM LEVEL 8.8 MG/DL (8.5-10.1); CARBON DIOXIDE LEVEL 32 MEQ/L (21-32); CHLORIDE LEVEL 104 MEQ/L (98-107); GLOMERULAR FILTRATION RATE > 60.0 (>56); GLUCOSE, FASTING 159 MG/DL (70-100); MAGNESIUM LEVEL 2.1 MG/DL (1.8-2.4); POTASSIUM SERUM 4.1 MEQ/L (3.5-5.1); SODIUM LEVEL 140 MEQ/L (136-145)
[2017-05-02] MEDS: HumaLOG INSULIN (NovoLOG) PER UNIT SC ×4 (07:30→21:00)
[2017-05-02] MEDS: metFORMIN (GLUCOPHAGE) 500 MG TAB PO ×2 (07:40→17:23)
[2017-05-02] MEDS: CARVedilol 12.5 MG TAB PO ×2 (09:00→21:00)
[2017-05-02] MEDS: ASPIRIN 81 MG ENTERIC TAB PO (10:07)
[2017-05-02] MEDS: LISINOPRIL 20 MG TAB PO (10:07)
[2017-05-02] MEDS: SPIRONOLACTONE 25 MG TAB PO (10:08)
[2017-05-02] MEDS: FUROSEMIDE 40 MG TAB PO (10:08)
[2017-05-02] MEDS: guaiFENesin ER 600 MG TAB PO ×2 (10:08→21:21)
[2017-05-02] MEDS: EUCERIN 120GM CREAM TOP ×2 (10:09→21:21)
[2017-05-02] MEDS: KETOCONAZOLE 2% CREAM TOP ×2 (10:09→21:22)
[2017-05-03] MEDS: HumaLOG INSULIN (NovoLOG) PER UNIT SC ×4 (07:28→21:00)
[2017-05-03] MEDS: metFORMIN (GLUCOPHAGE) 500 MG TAB PO ×2 (07:28→17:13)
[2017-05-03] MEDS: CARVedilol 12.5 MG TAB PO ×2 (08:24→21:00)
[2017-05-03] MEDS: KETOCONAZOLE 2% CREAM TOP ×2 (09:46→21:00)
[2017-05-03] MEDS: guaiFENesin ER 600 MG TAB PO ×2 (09:46→21:00)
[2017-05-03] MEDS: EUCERIN 120GM CREAM TOP ×2 (09:46→21:00)
[2017-05-03] MEDS: FUROSEMIDE 40 MG TAB PO (09:46)
[2017-05-03] MEDS: ASPIRIN 81 MG ENTERIC TAB PO (09:47)
[2017-05-03] MEDS: SPIRONOLACTONE 25 MG TAB PO (09:47)
[2017-05-03] MEDS: LISINOPRIL 20 MG TAB PO (09:47)
[2017-05-04] MEDS: HumaLOG INSULIN (NovoLOG) PER UNIT SC ×4 (07:30→21:00)
[2017-05-04] MEDS: metFORMIN (GLUCOPHAGE) 500 MG TAB PO ×2 (07:36→17:35)
[2017-05-04] MEDS: CARVedilol 12.5 MG TAB PO ×2 (09:00→21:00)
[2017-05-04] MEDS: EUCERIN 120GM CREAM TOP ×2 (09:00→21:00)
[2017-05-04] MEDS: LISINOPRIL 20 MG TAB PO (10:18)
[2017-05-04] MEDS: ASPIRIN 81 MG ENTERIC TAB PO (10:18)
[2017-05-04] MEDS: KETOCONAZOLE 2% CREAM TOP ×2 (10:19→21:57)
[2017-05-04] MEDS: guaiFENesin ER 600 MG TAB PO ×2 (10:19→21:57)
[2017-05-04] MEDS: SPIRONOLACTONE 25 MG TAB PO (10:19)
[2017-05-04] MEDS: FUROSEMIDE 40 MG TAB PO (10:19)
[2017-05-05] MEDS: HumaLOG INSULIN (NovoLOG) PER UNIT SC ×4 (07:36→21:00)
[2017-05-05] MEDS: metFORMIN (GLUCOPHAGE) 500 MG TAB PO ×2 (07:37→15:40)
[2017-05-05] MEDS: CARVedilol 12.5 MG TAB PO ×2 (07:37→21:00)
[2017-05-05] MEDS: EUCERIN 120GM CREAM TOP ×2 (07:38→21:00)
[2017-05-05] MEDS: LISINOPRIL 20 MG TAB PO (08:28)
[2017-05-05] MEDS: SPIRONOLACTONE 25 MG TAB PO (08:28)
[2017-05-05] MEDS: ASPIRIN 81 MG ENTERIC TAB PO (08:28)
[2017-05-05] MEDS: FUROSEMIDE 40 MG TAB PO (08:28)
[2017-05-05] MEDS: KETOCONAZOLE 2% CREAM TOP ×2 (08:28→21:32)
[2017-05-05] MEDS: guaiFENesin ER 600 MG TAB PO ×2 (08:28→21:32)
[2017-05-06] MEDS: HumaLOG INSULIN (NovoLOG) PER UNIT SC ×4 (07:21→20:02)
[2017-05-06] MEDS: CARVedilol 12.5 MG TAB PO ×2 (07:22→20:02)
[2017-05-06] MEDS: EUCERIN 120GM CREAM TOP ×2 (07:22→20:02)
[2017-05-06] MEDS: metFORMIN (GLUCOPHAGE) 500 MG TAB PO ×2 (07:22→15:25)
[2017-05-06] MEDS: SPIRONOLACTONE 25 MG TAB PO (09:43)
[2017-05-06] MEDS: ASPIRIN 81 MG ENTERIC TAB PO (09:43)
[2017-05-06] MEDS: FUROSEMIDE 40 MG TAB PO (09:43)
[2017-05-06] MEDS: guaiFENesin ER 600 MG TAB PO ×2 (09:44→21:50)
[2017-05-06] MEDS: KETOCONAZOLE 2% CREAM TOP ×2 (09:44→21:50)
[2017-05-06] MEDS: LISINOPRIL 20 MG TAB PO (09:44)
[2017-05-07] MEDS: HumaLOG INSULIN (NovoLOG) PER UNIT SC ×4 (07:27→21:00)
[2017-05-07] MEDS: metFORMIN (GLUCOPHAGE) 500 MG TAB PO ×2 (08:00→17:03)
[2017-05-07] MEDS: CARVedilol 12.5 MG TAB PO ×2 (08:33→21:00)
[2017-05-07] MEDS: EUCERIN 120GM CREAM TOP ×2 (09:00→21:00)
[2017-05-07] MEDS: guaiFENesin ER 600 MG TAB PO ×2 (09:42→21:00)
[2017-05-07] MEDS: ASPIRIN 81 MG ENTERIC TAB PO (09:42)
[2017-05-07] MEDS: FUROSEMIDE 40 MG TAB PO (09:42)
[2017-05-07] MEDS: KETOCONAZOLE 2% CREAM TOP ×2 (09:44→21:00)
[2017-05-07] MEDS: SPIRONOLACTONE 25 MG TAB PO (09:44)
[2017-05-07] MEDS: LISINOPRIL 20 MG TAB PO (09:44)
[2017-05-08] MEDS: HumaLOG INSULIN (NovoLOG) PER UNIT SC ×4 (07:25→21:00)
[2017-05-08] MEDS: metFORMIN (GLUCOPHAGE) 500 MG TAB PO ×2 (07:26→16:45)
[2017-05-08] MEDS: EUCERIN 120GM CREAM TOP ×2 (08:53→21:00)
[2017-05-08] MEDS: CARVedilol 12.5 MG TAB PO ×2 (08:53→21:00)
[2017-05-08] MEDS: guaiFENesin ER 600 MG TAB PO ×2 (08:58→21:21)
[2017-05-08] MEDS: ASPIRIN 81 MG ENTERIC TAB PO (08:58)
[2017-05-08] MEDS: SPIRONOLACTONE 25 MG TAB PO (08:58)
[2017-05-08] MEDS: FUROSEMIDE 40 MG TAB PO (08:58)
[2017-05-08] MEDS: LISINOPRIL 20 MG TAB PO (08:59)
[2017-05-08] MEDS: KETOCONAZOLE 2% CREAM TOP ×2 (08:59→21:00)
[2017-05-09] MEDS: HumaLOG INSULIN (NovoLOG) PER UNIT SC ×4 (07:30→21:00)
[2017-05-09] MEDS: metFORMIN (GLUCOPHAGE) 500 MG TAB PO ×2 (08:00→17:24)
[2017-05-09] MEDS: CARVedilol 12.5 MG TAB PO ×2 (09:00→21:00)
[2017-05-09] MEDS: ASPIRIN 81 MG ENTERIC TAB PO (09:06)
[2017-05-09] MEDS: guaiFENesin ER 600 MG TAB PO ×2 (09:07→21:00)
[2017-05-09] MEDS: FUROSEMIDE 40 MG TAB PO (09:07)
[2017-05-09] MEDS: SPIRONOLACTONE 25 MG TAB PO (09:07)
[2017-05-09] MEDS: LISINOPRIL 20 MG TAB PO (09:07)
[2017-05-09] MEDS: KETOCONAZOLE 2% CREAM TOP ×2 (09:08→21:00)
[2017-05-09] MEDS: EUCERIN 120GM CREAM TOP ×2 (09:08→21:00)
[2017-05-09] MEDS: IPRATROPIUM 0.5MG/ALBUTEROL 2.5MG INH SOL UD 3ML (DUONEB)(J7620) NEB (20:00)
[2017-05-10] MEDS: IPRATROPIUM 0.5MG/ALBUTEROL 2.5MG INH SOL UD 3ML (DUONEB)(J7620) NEB ×4 (02:00→20:00)
[2017-05-10] MEDS: CARVedilol 12.5 MG TAB PO ×2 (07:20→20:45)
[2017-05-10] MEDS: metFORMIN (GLUCOPHAGE) 500 MG TAB PO ×2 (07:20→07:28)
[2017-05-10] MEDS: HumaLOG INSULIN (NovoLOG) PER UNIT SC ×4 (07:20→20:45)
[2017-05-10] MEDS: EUCERIN 120GM CREAM TOP ×2 (07:26→20:45)
[2017-05-10] MEDS: guaiFENesin ER 600 MG TAB PO ×2 (08:18→20:47)
[2017-05-10] MEDS: ASPIRIN 81 MG ENTERIC TAB PO (08:19)
[2017-05-10] MEDS: FUROSEMIDE 40 MG TAB PO (08:19)
[2017-05-10] MEDS: SPIRONOLACTONE 25 MG TAB PO (08:19)
[2017-05-10] MEDS: LISINOPRIL 20 MG TAB PO (08:19)
[2017-05-10] MEDS: KETOCONAZOLE 2% CREAM TOP ×2 (08:25→20:45)
[2017-05-11] MEDS: IPRATROPIUM 0.5MG/ALBUTEROL 2.5MG INH SOL UD 3ML (DUONEB)(J7620) NEB ×4 (02:00→20:00)
[2017-05-11] MEDS: metFORMIN (GLUCOPHAGE) 500 MG TAB PO ×2 (07:20→07:22)
[2017-05-11] MEDS: HumaLOG INSULIN (NovoLOG) PER UNIT SC ×4 (07:20→07:23)
[2017-05-11] MEDS: KETOCONAZOLE 2% CREAM TOP ×2 (07:21→07:23)
[2017-05-11] MEDS: CARVedilol 12.5 MG TAB PO ×2 (07:21→07:22)
[2017-05-11] MEDS: EUCERIN 120GM CREAM TOP ×2 (07:21→07:23)
[2017-05-11] MEDS: FUROSEMIDE 40 MG TAB PO (08:15)
[2017-05-11] MEDS: guaiFENesin ER 600 MG TAB PO ×2 (08:15→21:31)
[2017-05-11] MEDS: SPIRONOLACTONE 25 MG TAB PO (08:15)
[2017-05-11] MEDS: ASPIRIN 81 MG ENTERIC TAB PO (08:15)
[2017-05-11] MEDS: LISINOPRIL 20 MG TAB PO (08:16)
[2017-05-12] MEDS: IPRATROPIUM 0.5MG/ALBUTEROL 2.5MG INH SOL UD 3ML (DUONEB)(J7620) NEB ×4 (01:42→20:00)
[2017-05-12] MEDS: HumaLOG INSULIN (NovoLOG) PER UNIT SC ×4 (07:30→21:00)
[2017-05-12] MEDS: metFORMIN (GLUCOPHAGE) 500 MG TAB PO ×2 (08:00→17:33)
[2017-05-12] MEDS: CARVedilol 12.5 MG TAB PO ×2 (09:00→21:00)
[2017-05-12] MEDS: EUCERIN 120GM CREAM TOP ×2 (09:00→21:00)
[2017-05-12] MEDS: KETOCONAZOLE 2% CREAM TOP ×2 (09:00→21:00)
[2017-05-12] MEDS: ASPIRIN 81 MG ENTERIC TAB PO (09:30)
[2017-05-12] MEDS: guaiFENesin ER 600 MG TAB PO ×2 (09:31→22:10)
[2017-05-12] MEDS: FUROSEMIDE 40 MG TAB PO (09:31)
[2017-05-12] MEDS: LISINOPRIL 20 MG TAB PO (09:33)
[2017-05-12] MEDS: SPIRONOLACTONE 25 MG TAB PO (09:33)
[2017-05-13] MEDS: IPRATROPIUM 0.5MG/ALBUTEROL 2.5MG INH SOL UD 3ML (DUONEB)(J7620) NEB ×4 (01:35→20:00)
[2017-05-13] MEDS: metFORMIN (GLUCOPHAGE) 500 MG TAB PO ×2 (07:30→17:34)
[2017-05-13] MEDS: HumaLOG INSULIN (NovoLOG) PER UNIT SC ×4 (07:30→21:00)
[2017-05-13] MEDS: KETOCONAZOLE 2% CREAM TOP ×2 (09:00→21:58)
[2017-05-13] MEDS: CARVedilol 12.5 MG TAB PO ×2 (09:00→21:52)
[2017-05-13] MEDS: ASPIRIN 81 MG ENTERIC TAB PO (09:25)
[2017-05-13] MEDS: LISINOPRIL 20 MG TAB PO (09:26)
[2017-05-13] MEDS: guaiFENesin ER 600 MG TAB PO ×2 (09:26→21:49)
[2017-05-13] MEDS: SPIRONOLACTONE 25 MG TAB PO (09:26)
[2017-05-13] MEDS: FUROSEMIDE 40 MG TAB PO (09:27)
[2017-05-14] MEDS: IPRATROPIUM 0.5MG/ALBUTEROL 2.5MG INH SOL UD 3ML (DUONEB)(J7620) NEB ×2 (02:00→20:00)
[2017-05-14] MEDS: HumaLOG INSULIN (NovoLOG) PER UNIT SC ×4 (07:30→20:48)
[2017-05-14] MEDS: metFORMIN (GLUCOPHAGE) 500 MG TAB PO ×2 (08:00→17:02)
[2017-05-14] MEDS: CARVedilol 12.5 MG TAB PO ×2 (09:00→20:48)
[2017-05-14] MEDS: KETOCONAZOLE 2% CREAM TOP ×2 (09:00→20:48)
[2017-05-14] MEDS: guaiFENesin ER 600 MG TAB PO ×2 (09:18→20:33)
[2017-05-14] MEDS: SPIRONOLACTONE 25 MG TAB PO (09:18)
[2017-05-14] MEDS: LISINOPRIL 20 MG TAB PO (09:19)
[2017-05-14] MEDS: ASPIRIN 81 MG ENTERIC TAB PO (09:19)
[2017-05-14] MEDS: FUROSEMIDE 40 MG TAB PO (09:19)
[2017-05-14] MEDS: EUCERIN 120GM CREAM TOP (20:48)
[2017-05-15] MEDS: IPRATROPIUM 0.5MG/ALBUTEROL 2.5MG INH SOL UD 3ML (DUONEB)(J7620) NEB ×4 (00:35→20:00)
[2017-05-15] MEDS: HumaLOG INSULIN (NovoLOG) PER UNIT SC ×4 (07:30→21:00)
[2017-05-15] MEDS: metFORMIN (GLUCOPHAGE) 500 MG TAB PO ×2 (07:33→17:26)
[2017-05-15] MEDS: KETOCONAZOLE 2% CREAM TOP ×2 (07:34→21:00)
[2017-05-15] MEDS: EUCERIN 120GM CREAM TOP ×2 (07:34→21:00)
[2017-05-15] MEDS: CARVedilol 12.5 MG TAB PO ×2 (07:34→21:00)
[2017-05-15] MEDS: FUROSEMIDE 40 MG TAB PO (09:49)
[2017-05-15] MEDS: LISINOPRIL 20 MG TAB PO (09:49)
[2017-05-15] MEDS: SPIRONOLACTONE 25 MG TAB PO (09:49)
[2017-05-15] MEDS: ASPIRIN 81 MG ENTERIC TAB PO (09:49)
[2017-05-15] MEDS: guaiFENesin ER 600 MG TAB PO ×2 (09:49→21:38)
[2017-05-16] MEDS: IPRATROPIUM 0.5MG/ALBUTEROL 2.5MG INH SOL UD 3ML (DUONEB)(J7620) NEB ×4 (01:03→20:00)
[2017-05-16] MEDS: HumaLOG INSULIN (NovoLOG) PER UNIT SC ×4 (07:48→21:00)
[2017-05-16] MEDS: metFORMIN (GLUCOPHAGE) 500 MG TAB PO ×2 (08:00→17:29)
[2017-05-16] MEDS: CARVedilol 12.5 MG TAB PO ×2 (09:17→21:00)
[2017-05-16] MEDS: KETOCONAZOLE 2% CREAM TOP ×2 (09:18→21:00)
[2017-05-16] MEDS: EUCERIN 120GM CREAM TOP (09:18)
[2017-05-16] MEDS: ASPIRIN 81 MG ENTERIC TAB PO (10:00)
[2017-05-16] MEDS: SPIRONOLACTONE 25 MG TAB PO (10:00)
[2017-05-16] MEDS: guaiFENesin ER 600 MG TAB PO ×2 (10:00→22:19)
[2017-05-16] MEDS: FUROSEMIDE 40 MG TAB PO (10:01)
[2017-05-16] MEDS: LISINOPRIL 20 MG TAB PO (10:01)
[2017-05-17] MEDS: IPRATROPIUM 0.5MG/ALBUTEROL 2.5MG INH SOL UD 3ML (DUONEB)(J7620) NEB ×4 (01:28→20:00)
[2017-05-17] MEDS: HumaLOG INSULIN (NovoLOG) PER UNIT SC ×4 (07:38→21:00)
[2017-05-17] MEDS: metFORMIN (GLUCOPHAGE) 500 MG TAB PO ×2 (07:38→17:24)
[2017-05-17] MEDS: CARVedilol 12.5 MG TAB PO ×2 (07:38→21:00)
[2017-05-17] MEDS: KETOCONAZOLE 2% CREAM TOP ×2 (07:39→21:00)
[2017-05-17] MEDS: SPIRONOLACTONE 25 MG TAB PO (09:54)
[2017-05-17] MEDS: guaiFENesin ER 600 MG TAB PO ×2 (09:54→21:44)
[2017-05-17] MEDS: ASPIRIN 81 MG ENTERIC TAB PO (09:55)
[2017-05-17] MEDS: FUROSEMIDE 40 MG TAB PO (09:55)
[2017-05-17] MEDS: LISINOPRIL 20 MG TAB PO (09:55)
[2017-05-18] MEDS: IPRATROPIUM 0.5MG/ALBUTEROL 2.5MG INH SOL UD 3ML (DUONEB)(J7620) NEB ×4 (02:00→20:00)
[2017-05-18] MEDS: HumaLOG INSULIN (NovoLOG) PER UNIT SC ×4 (07:30→21:00)
[2017-05-18] MEDS: metFORMIN (GLUCOPHAGE) 500 MG TAB PO ×2 (08:00→15:29)
[2017-05-18] MEDS: KETOCONAZOLE 2% CREAM TOP ×2 (09:00→21:40)
[2017-05-18] MEDS: CARVedilol 12.5 MG TAB PO ×2 (09:00→21:00)
[2017-05-18] MEDS: ASPIRIN 81 MG ENTERIC TAB PO (09:54)
[2017-05-18] MEDS: guaiFENesin ER 600 MG TAB PO ×2 (09:55→21:00)
[2017-05-18] MEDS: FUROSEMIDE 40 MG TAB PO (09:55)
[2017-05-18] MEDS: LISINOPRIL 20 MG TAB PO (09:55)
[2017-05-18] MEDS: SPIRONOLACTONE 25 MG TAB PO (09:55)
[2017-05-19] MEDS: IPRATROPIUM 0.5MG/ALBUTEROL 2.5MG INH SOL UD 3ML (DUONEB)(J7620) NEB ×4 (02:00→20:00)
[2017-05-19] MEDS: HumaLOG INSULIN (NovoLOG) PER UNIT SC ×4 (07:30→21:00)
[2017-05-19] MEDS: metFORMIN (GLUCOPHAGE) 500 MG TAB PO ×2 (08:00→11:16)
[2017-05-19] MEDS: CARVedilol 12.5 MG TAB PO ×2 (08:46→21:00)
[2017-05-19] MEDS: KETOCONAZOLE 2% CREAM TOP ×2 (08:47→21:03)
[2017-05-19] MEDS: guaiFENesin ER 600 MG TAB PO ×2 (09:40→21:02)
[2017-05-19] MEDS: FUROSEMIDE 40 MG TAB PO (09:40)
[2017-05-19] MEDS: SPIRONOLACTONE 25 MG TAB PO (09:40)
[2017-05-19] MEDS: LISINOPRIL 20 MG TAB PO (09:40)
[2017-05-19] MEDS: ASPIRIN 81 MG ENTERIC TAB PO (09:41)
[2017-05-20] MEDS: IPRATROPIUM 0.5MG/ALBUTEROL 2.5MG INH SOL UD 3ML (DUONEB)(J7620) NEB ×4 (02:00→20:00)
[2017-05-20] MEDS: HumaLOG INSULIN (NovoLOG) PER UNIT SC ×4 (07:30→21:00)
[2017-05-20] MEDS: CARVedilol 12.5 MG TAB PO ×2 (07:54→21:00)
[2017-05-20] MEDS: metFORMIN (GLUCOPHAGE) 500 MG TAB PO ×2 (07:54→14:52)
[2017-05-20] MEDS: KETOCONAZOLE 2% CREAM TOP ×2 (07:54→21:45)
[2017-05-20] MEDS: SPIRONOLACTONE 25 MG TAB PO (09:27)
[2017-05-20] MEDS: ASPIRIN 81 MG ENTERIC TAB PO (09:27)
[2017-05-20] MEDS: LISINOPRIL 20 MG TAB PO (09:27)
[2017-05-20] MEDS: guaiFENesin ER 600 MG TAB PO ×2 (09:27→21:50)
[2017-05-20] MEDS: FUROSEMIDE 40 MG TAB PO (09:27)
[2017-05-20] MEDS: ANALGESIC BALM CRM 120 GM TOP (22:45)
[2017-05-21] MEDS: IPRATROPIUM 0.5MG/ALBUTEROL 2.5MG INH SOL UD 3ML (DUONEB)(J7620) NEB ×4 (01:15→20:00)
[2017-05-21] MEDS: metFORMIN (GLUCOPHAGE) 500 MG TAB PO ×2 (07:27→07:28)
[2017-05-21] MEDS: CARVedilol 12.5 MG TAB PO ×2 (07:27→21:00)
[2017-05-21] MEDS: HumaLOG INSULIN (NovoLOG) PER UNIT SC ×4 (07:27→21:00)
[2017-05-21] MEDS: SPIRONOLACTONE 25 MG TAB PO (07:57)
[2017-05-21] MEDS: LISINOPRIL 20 MG TAB PO (07:57)
[2017-05-21] MEDS: FUROSEMIDE 40 MG TAB PO (07:57)
[2017-05-21] MEDS: guaiFENesin ER 600 MG TAB PO ×2 (07:57→22:02)
[2017-05-21] MEDS: ASPIRIN 81 MG ENTERIC TAB PO (07:57)
[2017-05-21] MEDS: KETOCONAZOLE 2% CREAM TOP ×2 (07:58→22:02)
[2017-05-22] MEDS: IPRATROPIUM 0.5MG/ALBUTEROL 2.5MG INH SOL UD 3ML (DUONEB)(J7620) NEB ×4 (02:00→20:00)
[2017-05-22] MEDS: HumaLOG INSULIN (NovoLOG) PER UNIT SC ×4 (07:19→21:26)
[2017-05-22] MEDS: CARVedilol 12.5 MG TAB PO ×2 (07:20→21:26)
[2017-05-22] MEDS: metFORMIN (GLUCOPHAGE) 500 MG TAB PO ×2 (07:21→07:25)
[2017-05-22] MEDS: FUROSEMIDE 40 MG TAB PO (09:33)
[2017-05-22] MEDS: guaiFENesin ER 600 MG TAB PO ×2 (09:33→21:55)
[2017-05-22] MEDS: LISINOPRIL 20 MG TAB PO (09:33)
[2017-05-22] MEDS: SPIRONOLACTONE 25 MG TAB PO (09:33)
[2017-05-22] MEDS: ASPIRIN 81 MG ENTERIC TAB PO (09:33)
[2017-05-22] MEDS: KETOCONAZOLE 2% CREAM TOP ×2 (09:34→21:56)
[2017-05-23] MEDS: IPRATROPIUM 0.5MG/ALBUTEROL 2.5MG INH SOL UD 3ML (DUONEB)(J7620) NEB ×5 (02:00→22:25)
[2017-05-23] MEDS: metFORMIN (GLUCOPHAGE) 500 MG TAB PO ×2 (06:58→08:46)
[2017-05-23] MEDS: CARVedilol 12.5 MG TAB PO ×2 (06:58→21:00)
[2017-05-23] MEDS: HumaLOG INSULIN (NovoLOG) PER UNIT SC ×4 (06:58→21:00)
[2017-05-23] MEDS: FUROSEMIDE 40 MG TAB PO (09:37)
[2017-05-23] MEDS: LISINOPRIL 20 MG TAB PO (09:38)
[2017-05-23] MEDS: SPIRONOLACTONE 25 MG TAB PO (09:38)
[2017-05-23] MEDS: guaiFENesin ER 600 MG TAB PO ×2 (09:38→21:41)
[2017-05-23] MEDS: ASPIRIN 81 MG ENTERIC TAB PO (09:38)
[2017-05-23] MEDS: KETOCONAZOLE 2% CREAM TOP ×2 (09:51→21:41)
[2017-05-24] MEDS: HumaLOG INSULIN (NovoLOG) PER UNIT SC ×4 (07:20→07:22)
[2017-05-24] MEDS: metFORMIN (GLUCOPHAGE) 500 MG TAB PO ×2 (07:20→07:21)
[2017-05-24] MEDS: CARVedilol 12.5 MG TAB PO ×2 (07:21→21:00)
[2017-05-24] MEDS: IPRATROPIUM 0.5MG/ALBUTEROL 2.5MG INH SOL UD 3ML (DUONEB)(J7620) NEB ×3 (07:37→20:00)
[2017-05-24] MEDS: guaiFENesin ER 600 MG TAB PO ×2 (09:31→21:50)
[2017-05-24] MEDS: FUROSEMIDE 40 MG TAB PO (09:31)
[2017-05-24] MEDS: LISINOPRIL 20 MG TAB PO (09:31)
[2017-05-24] MEDS: SPIRONOLACTONE 25 MG TAB PO (09:31)
[2017-05-24] MEDS: ASPIRIN 81 MG ENTERIC TAB PO (09:31)
[2017-05-24] MEDS: KETOCONAZOLE 2% CREAM TOP ×2 (09:33→21:49)
[2017-05-25] MEDS: IPRATROPIUM 0.5MG/ALBUTEROL 2.5MG INH SOL UD 3ML (DUONEB)(J7620) NEB ×4 (02:00→20:00)
[2017-05-25] MEDS: HumaLOG INSULIN (NovoLOG) PER UNIT SC ×4 (07:30→21:00)
[2017-05-25] MEDS: metFORMIN (GLUCOPHAGE) 500 MG TAB PO ×2 (08:00→16:48)
[2017-05-25] MEDS: CARVedilol 12.5 MG TAB PO ×2 (08:11→21:00)
[2017-05-25] MEDS: KETOCONAZOLE 2% CREAM TOP ×2 (08:11→21:33)
[2017-05-25] MEDS: guaiFENesin ER 600 MG TAB PO ×2 (09:38→21:33)
[2017-05-25] MEDS: ASPIRIN 81 MG ENTERIC TAB PO (09:38)
[2017-05-25] MEDS: LISINOPRIL 20 MG TAB PO (09:38)
[2017-05-25] MEDS: SPIRONOLACTONE 25 MG TAB PO (09:38)
[2017-05-25] MEDS: FUROSEMIDE 40 MG TAB PO (09:38)
[2017-05-26] MEDS: IPRATROPIUM 0.5MG/ALBUTEROL 2.5MG INH SOL UD 3ML (DUONEB)(J7620) NEB ×5 (02:00→20:13)
[2017-05-26] MEDS: HumaLOG INSULIN (NovoLOG) PER UNIT SC ×4 (07:30→21:00)
[2017-05-26] MEDS: metFORMIN (GLUCOPHAGE) 500 MG TAB PO ×2 (08:00→15:52)
[2017-05-26] MEDS: KETOCONAZOLE 2% CREAM TOP ×2 (08:45→21:43)
[2017-05-26] MEDS: CARVedilol 12.5 MG TAB PO ×2 (08:45→21:00)
[2017-05-26] MEDS: SPIRONOLACTONE 25 MG TAB PO (09:25)
[2017-05-26] MEDS: ASPIRIN 81 MG ENTERIC TAB PO (09:25)
[2017-05-26] MEDS: guaiFENesin ER 600 MG TAB PO ×2 (09:25→21:42)
[2017-05-26] MEDS: LISINOPRIL 20 MG TAB PO (09:25)
[2017-05-26] MEDS: FUROSEMIDE 40 MG TAB PO (09:25)
[2017-05-27] MEDS: HumaLOG INSULIN (NovoLOG) PER UNIT SC ×4 (07:30→21:00)
[2017-05-27] MEDS: CARVedilol 12.5 MG TAB PO ×2 (07:40→21:00)
[2017-05-27] MEDS: metFORMIN (GLUCOPHAGE) 500 MG TAB PO ×2 (07:40→15:48)
[2017-05-27] MEDS: IPRATROPIUM 0.5MG/ALBUTEROL 2.5MG INH SOL UD 3ML (DUONEB)(J7620) NEB ×4 (07:40→22:41)
[2017-05-27] MEDS: KETOCONAZOLE 2% CREAM TOP ×2 (07:41→21:37)
[2017-05-27] MEDS: LISINOPRIL 20 MG TAB PO (09:35)
[2017-05-27] MEDS: ASPIRIN 81 MG ENTERIC TAB PO (09:35)
[2017-05-27] MEDS: SPIRONOLACTONE 25 MG TAB PO (09:35)
[2017-05-27] MEDS: FUROSEMIDE 40 MG TAB PO (09:35)
[2017-05-27] MEDS: guaiFENesin ER 600 MG TAB PO ×2 (09:35→21:37)
[2017-05-28] MEDS: HumaLOG INSULIN (NovoLOG) PER UNIT SC ×4 (07:30→21:00)
[2017-05-28] MEDS: IPRATROPIUM 0.5MG/ALBUTEROL 2.5MG INH SOL UD 3ML (DUONEB)(J7620) NEB ×4 (08:00→23:42)
[2017-05-28] MEDS: metFORMIN (GLUCOPHAGE) 500 MG TAB PO ×2 (08:00→17:08)
[2017-05-28] MEDS: CARVedilol 12.5 MG TAB PO ×2 (08:25→21:00)
[2017-05-28] MEDS: LISINOPRIL 20 MG TAB PO (08:58)
[2017-05-28] MEDS: guaiFENesin ER 600 MG TAB PO ×2 (08:58→21:45)
[2017-05-28] MEDS: FUROSEMIDE 40 MG TAB PO (08:58)
[2017-05-28] MEDS: SPIRONOLACTONE 25 MG TAB PO (08:58)
[2017-05-28] MEDS: ASPIRIN 81 MG ENTERIC TAB PO (08:58)
[2017-05-28] MEDS: KETOCONAZOLE 2% CREAM TOP ×3 (08:59→21:46)
[2017-05-29] MEDS: HumaLOG INSULIN (NovoLOG) PER UNIT SC ×4 (07:30→21:00)
[2017-05-29] MEDS: metFORMIN (GLUCOPHAGE) 500 MG TAB PO ×2 (07:49→17:01)
[2017-05-29] MEDS: IPRATROPIUM 0.5MG/ALBUTEROL 2.5MG INH SOL UD 3ML (DUONEB)(J7620) NEB ×2 (08:00→20:00)
[2017-05-29] MEDS: KETOCONAZOLE 2% CREAM TOP ×2 (08:25→21:29)
[2017-05-29] MEDS: CARVedilol 12.5 MG TAB PO ×2 (08:25→21:00)
[2017-05-29] MEDS: ASPIRIN 81 MG ENTERIC TAB PO (09:36)
[2017-05-29] MEDS: LISINOPRIL 20 MG TAB PO (09:37)
[2017-05-29] MEDS: FUROSEMIDE 40 MG TAB PO (09:37)
[2017-05-29] MEDS: SPIRONOLACTONE 25 MG TAB PO (09:37)
[2017-05-29] MEDS: guaiFENesin ER 600 MG TAB PO ×2 (09:37→21:28)
[2017-05-30] MEDS: IPRATROPIUM 0.5MG/ALBUTEROL 2.5MG INH SOL UD 3ML (DUONEB)(J7620) NEB ×3 (02:00→13:30)
[2017-05-30] MEDS: metFORMIN (GLUCOPHAGE) 500 MG TAB PO ×2 (07:58→17:04)
[2017-05-30] MEDS: HumaLOG INSULIN (NovoLOG) PER UNIT SC ×4 (07:58→21:21)
[2017-05-30] MEDS: CARVedilol 12.5 MG TAB PO ×2 (09:18→21:21)
[2017-05-30] MEDS: guaiFENesin ER 600 MG TAB PO ×2 (09:28→21:17)
[2017-05-30] MEDS: ASPIRIN 81 MG ENTERIC TAB PO (09:28)
[2017-05-30] MEDS: FUROSEMIDE 40 MG TAB PO (09:29)
[2017-05-30] MEDS: LISINOPRIL 20 MG TAB PO (09:29)
[2017-05-30] MEDS: KETOCONAZOLE 2% CREAM TOP ×2 (09:29→21:22)
[2017-05-30] MEDS: SPIRONOLACTONE 25 MG TAB PO (09:29)
[2017-05-31] MEDS: HumaLOG INSULIN (NovoLOG) PER UNIT SC ×4 (07:30→21:33)
[2017-05-31] MEDS: IPRATROPIUM 0.5MG/ALBUTEROL 2.5MG INH SOL UD 3ML (DUONEB)(J7620) NEB ×4 (07:33→22:35)
[2017-05-31] MEDS: metFORMIN (GLUCOPHAGE) 500 MG TAB PO ×2 (08:00→17:03)
[2017-05-31] MEDS: KETOCONAZOLE 2% CREAM TOP ×2 (09:00→21:33)
[2017-05-31] MEDS: CARVedilol 12.5 MG TAB PO ×2 (09:00→21:28)
[2017-05-31] MEDS: SPIRONOLACTONE 25 MG TAB PO (09:36)
[2017-05-31] MEDS: ASPIRIN 81 MG ENTERIC TAB PO (09:36)
[2017-05-31] MEDS: guaiFENesin ER 600 MG TAB PO ×2 (09:37→21:27)
[2017-05-31] MEDS: LISINOPRIL 20 MG TAB PO (09:37)
[2017-05-31] MEDS: FUROSEMIDE 40 MG TAB PO (09:37)
[2017-06-01] MEDS: HumaLOG INSULIN (NovoLOG) PER UNIT SC ×4 (07:30→19:24)
[2017-06-01] MEDS: metFORMIN (GLUCOPHAGE) 500 MG TAB PO ×2 (08:00→17:27)
[2017-06-01] MEDS: KETOCONAZOLE 2% CREAM TOP ×2 (09:00→19:25)
[2017-06-01] MEDS: CARVedilol 12.5 MG TAB PO ×2 (09:00→19:24)
[2017-06-01] MEDS: SPIRONOLACTONE 25 MG TAB PO (09:33)
[2017-06-01] MEDS: ASPIRIN 81 MG ENTERIC TAB PO (09:33)
[2017-06-01] MEDS: LISINOPRIL 20 MG TAB PO (09:33)
[2017-06-01] MEDS: guaiFENesin ER 600 MG TAB PO ×2 (09:33→21:55)
[2017-06-01] MEDS: FUROSEMIDE 40 MG TAB PO (09:33)
[2017-06-01] MEDS: IPRATROPIUM 0.5MG/ALBUTEROL 2.5MG INH SOL UD 3ML (DUONEB)(J7620) NEB (20:00)
[2017-06-02] MEDS: IPRATROPIUM 0.5MG/ALBUTEROL 2.5MG INH SOL UD 3ML (DUONEB)(J7620) NEB ×3 (02:00→20:00)
[2017-06-02] MEDS: metFORMIN (GLUCOPHAGE) 500 MG TAB PO ×2 (07:23→17:30)
[2017-06-02] MEDS: HumaLOG INSULIN (NovoLOG) PER UNIT SC ×4 (07:23→21:00)
[2017-06-02] MEDS: CARVedilol 12.5 MG TAB PO ×2 (08:25→21:00)
[2017-06-02] MEDS: KETOCONAZOLE 2% CREAM TOP ×2 (09:00→21:41)
[2017-06-02] MEDS: FUROSEMIDE 40 MG TAB PO (09:33)
[2017-06-02] MEDS: LISINOPRIL 20 MG TAB PO (09:33)
[2017-06-02] MEDS: SPIRONOLACTONE 25 MG TAB PO (09:33)
[2017-06-02] MEDS: ASPIRIN 81 MG ENTERIC TAB PO (09:33)
[2017-06-02] MEDS: guaiFENesin ER 600 MG TAB PO ×2 (09:33→21:38)
[2017-06-03] MEDS: IPRATROPIUM 0.5MG/ALBUTEROL 2.5MG INH SOL UD 3ML (DUONEB)(J7620) NEB ×4 (02:00→19:35)
[2017-06-03] MEDS: HumaLOG INSULIN (NovoLOG) PER UNIT SC ×4 (07:25→21:00)
[2017-06-03] MEDS: CARVedilol 12.5 MG TAB PO ×2 (07:25→21:00)
[2017-06-03] MEDS: metFORMIN (GLUCOPHAGE) 500 MG TAB PO ×2 (07:25→16:27)
[2017-06-03] MEDS: KETOCONAZOLE 2% CREAM TOP ×2 (09:00→21:00)
[2017-06-03] MEDS: SPIRONOLACTONE 25 MG TAB PO (09:17)
[2017-06-03] MEDS: guaiFENesin ER 600 MG TAB PO ×2 (09:17→21:48)
[2017-06-03] MEDS: ASPIRIN 81 MG ENTERIC TAB PO (09:17)
[2017-06-03] MEDS: FUROSEMIDE 40 MG TAB PO (09:17)
[2017-06-03] MEDS: LISINOPRIL 20 MG TAB PO (09:18)
[2017-06-04] MEDS: HumaLOG INSULIN (NovoLOG) PER UNIT SC ×4 (07:30→20:52)
[2017-06-04] MEDS: IPRATROPIUM 0.5MG/ALBUTEROL 2.5MG INH SOL UD 3ML (DUONEB)(J7620) NEB ×3 (07:54→19:42)
[2017-06-04] MEDS: metFORMIN (GLUCOPHAGE) 500 MG TAB PO ×2 (08:00→16:33)
[2017-06-04] MEDS: CARVedilol 12.5 MG TAB PO ×2 (08:44→20:52)
[2017-06-04] MEDS: KETOCONAZOLE 2% CREAM TOP ×2 (08:44→20:53)
[2017-06-04] MEDS: FUROSEMIDE 40 MG TAB PO (09:22)
[2017-06-04] MEDS: guaiFENesin ER 600 MG TAB PO ×2 (09:22→20:57)
[2017-06-04] MEDS: SPIRONOLACTONE 25 MG TAB PO (09:23)
[2017-06-04] MEDS: ASPIRIN 81 MG ENTERIC TAB PO (09:23)
[2017-06-04] MEDS: LISINOPRIL 20 MG TAB PO (09:24)
[2017-06-05] MEDS: IPRATROPIUM 0.5MG/ALBUTEROL 2.5MG INH SOL UD 3ML (DUONEB)(J7620) NEB ×4 (01:39→19:17)
[2017-06-05] MEDS: HumaLOG INSULIN (NovoLOG) PER UNIT SC ×4 (07:30→21:00)
[2017-06-05] MEDS: CARVedilol 12.5 MG TAB PO ×2 (07:56→21:00)
[2017-06-05] MEDS: metFORMIN (GLUCOPHAGE) 500 MG TAB PO ×2 (07:56→17:10)
[2017-06-05] MEDS: KETOCONAZOLE 2% CREAM TOP ×2 (07:57→21:00)
[2017-06-05] MEDS: LISINOPRIL 20 MG TAB PO (09:32)
[2017-06-05] MEDS: guaiFENesin ER 600 MG TAB PO ×2 (09:33→21:32)
[2017-06-05] MEDS: SPIRONOLACTONE 25 MG TAB PO (09:33)
[2017-06-05] MEDS: ASPIRIN 81 MG ENTERIC TAB PO (09:33)
[2017-06-05] MEDS: FUROSEMIDE 40 MG TAB PO (09:33)
[2017-06-06] MEDS: IPRATROPIUM 0.5MG/ALBUTEROL 2.5MG INH SOL UD 3ML (DUONEB)(J7620) NEB ×4 (01:11→20:00)
[2017-06-06] MEDS: metFORMIN (GLUCOPHAGE) 500 MG TAB PO ×2 (07:10→17:41)
[2017-06-06] MEDS: HumaLOG INSULIN (NovoLOG) PER UNIT SC ×4 (07:10→21:00)
[2017-06-06] MEDS: CARVedilol 12.5 MG TAB PO ×2 (09:00→21:00)
[2017-06-06] MEDS: KETOCONAZOLE 2% CREAM TOP ×2 (09:00→21:00)
[2017-06-06] MEDS: FUROSEMIDE 40 MG TAB PO (09:44)
[2017-06-06] MEDS: guaiFENesin ER 600 MG TAB PO ×2 (09:44→22:05)
[2017-06-06] MEDS: ASPIRIN 81 MG ENTERIC TAB PO (09:44)
[2017-06-06] MEDS: SPIRONOLACTONE 25 MG TAB PO (09:44)
[2017-06-06] MEDS: LISINOPRIL 20 MG TAB PO (09:46)
[2017-06-07] MEDS: IPRATROPIUM 0.5MG/ALBUTEROL 2.5MG INH SOL UD 3ML (DUONEB)(J7620) NEB ×3 (02:00→20:00)
[2017-06-07] MEDS: HumaLOG INSULIN (NovoLOG) PER UNIT SC ×4 (07:25→21:00)
[2017-06-07] MEDS: metFORMIN (GLUCOPHAGE) 500 MG TAB PO ×2 (07:26→17:19)
[2017-06-07] MEDS: CARVedilol 12.5 MG TAB PO ×2 (07:27→21:00)
[2017-06-07] MEDS: KETOCONAZOLE 2% CREAM TOP ×2 (07:28→21:00)
[2017-06-07 08:02] LABS: HEMATOCRIT 41.9 % (42.0-52.0); HEMOGLOBIN 13.5 g/dl (14.0-18.0); MEAN CORPUSCULAR HEMOGLOBIN 24.5 pg (27.0-33.0); MEAN CORPUSCULAR HGB CONC 32.2 g/dl (32.0-36.5); MEAN CORPUSCULAR VOLUME 76.2 fl (80.0-96.0); PLATELET COUNT, AUTOMATED 231 10^3/uL (150-450); RED CELL DISTRIBUTION WIDTH 18.4 % (11.5-14.5); WHITE BLOOD COUNT 6.1 10^3/uL (4.0-10.0)
[2017-06-07 08:20] LABS: ANION GAP 4 MEQ/L (8-16); BLOOD UREA NITROGEN 23 MG/DL (7-18); CALCIUM LEVEL 8.5 MG/DL (8.5-10.1); CARBON DIOXIDE LEVEL 30 MEQ/L (21-32); CHLORIDE LEVEL 108 MEQ/L (98-107); CREATININE FOR GFR 0.85 MG/DL (0.70-1.30); GLOMERULAR FILTRATION RATE > 60.0 (>56); GLUCOSE, FASTING 140 MG/DL (70-100); MAGNESIUM LEVEL 2.1 MG/DL (1.8-2.4); POTASSIUM SERUM 4.4 MEQ/L (3.5-5.1); SODIUM LEVEL 142 MEQ/L (136-145)
[2017-06-07] MEDS: FUROSEMIDE 40 MG TAB PO (09:36)
[2017-06-07] MEDS: ASPIRIN 81 MG ENTERIC TAB PO (09:37)
[2017-06-07] MEDS: guaiFENesin ER 600 MG TAB PO ×2 (09:37→21:26)
[2017-06-07] MEDS: SPIRONOLACTONE 25 MG TAB PO (09:37)
[2017-06-07] MEDS: LISINOPRIL 20 MG TAB PO (09:39)
[2017-06-08] MEDS: IPRATROPIUM 0.5MG/ALBUTEROL 2.5MG INH SOL UD 3ML (DUONEB)(J7620) NEB ×4 (01:58→20:00)
[2017-06-08] MEDS: HumaLOG INSULIN (NovoLOG) PER UNIT SC ×4 (07:30→21:00)
[2017-06-08] MEDS: metFORMIN (GLUCOPHAGE) 500 MG TAB PO ×2 (08:00→16:57)
[2017-06-08] MEDS: CARVedilol 12.5 MG TAB PO ×2 (09:00→21:00)
[2017-06-08] MEDS: KETOCONAZOLE 2% CREAM TOP ×2 (09:00→21:00)
[2017-06-08] MEDS: guaiFENesin ER 600 MG TAB PO ×2 (09:39→21:28)
[2017-06-08] MEDS: LISINOPRIL 20 MG TAB PO (09:39)
[2017-06-08] MEDS: ASPIRIN 81 MG ENTERIC TAB PO (09:40)
[2017-06-08] MEDS: FUROSEMIDE 40 MG TAB PO (09:40)
[2017-06-08] MEDS: SPIRONOLACTONE 25 MG TAB PO (09:41)
[2017-06-09] MEDS: IPRATROPIUM 0.5MG/ALBUTEROL 2.5MG INH SOL UD 3ML (DUONEB)(J7620) NEB ×4 (02:00→20:00)
[2017-06-09] MEDS: HumaLOG INSULIN (NovoLOG) PER UNIT SC ×4 (07:30→21:00)
[2017-06-09] MEDS: metFORMIN (GLUCOPHAGE) 500 MG TAB PO ×2 (07:40→16:41)
[2017-06-09] MEDS: CARVedilol 12.5 MG TAB PO ×2 (07:40→21:00)
[2017-06-09] MEDS: KETOCONAZOLE 2% CREAM TOP ×2 (07:40→21:00)
[2017-06-09] MEDS: ASPIRIN 81 MG ENTERIC TAB PO (09:33)
[2017-06-09] MEDS: SPIRONOLACTONE 25 MG TAB PO (09:34)
[2017-06-09] MEDS: LISINOPRIL 20 MG TAB PO (09:34)
[2017-06-09] MEDS: FUROSEMIDE 40 MG TAB PO (09:34)
[2017-06-09] MEDS: guaiFENesin ER 600 MG TAB PO ×2 (09:34→21:43)
[2017-06-10] MEDS: IPRATROPIUM 0.5MG/ALBUTEROL 2.5MG INH SOL UD 3ML (DUONEB)(J7620) NEB ×4 (02:00→20:00)
[2017-06-10] MEDS: HumaLOG INSULIN (NovoLOG) PER UNIT SC ×4 (07:30→21:00)
[2017-06-10] MEDS: metFORMIN (GLUCOPHAGE) 500 MG TAB PO ×2 (08:00→14:38)
[2017-06-10] MEDS: CARVedilol 12.5 MG TAB PO ×2 (09:00→21:00)
[2017-06-10] MEDS: KETOCONAZOLE 2% CREAM TOP ×2 (09:00→21:00)
[2017-06-10] MEDS: FUROSEMIDE 40 MG TAB PO (09:32)
[2017-06-10] MEDS: LISINOPRIL 20 MG TAB PO (09:32)
[2017-06-10] MEDS: SPIRONOLACTONE 25 MG TAB PO (09:32)
[2017-06-10] MEDS: guaiFENesin ER 600 MG TAB PO ×2 (09:32→21:38)
[2017-06-10] MEDS: ASPIRIN 81 MG ENTERIC TAB PO (09:32)
[2017-06-11] MEDS: IPRATROPIUM 0.5MG/ALBUTEROL 2.5MG INH SOL UD 3ML (DUONEB)(J7620) NEB ×5 (02:00→21:31)
[2017-06-11] MEDS: HumaLOG INSULIN (NovoLOG) PER UNIT SC ×4 (07:43→19:50)
[2017-06-11] MEDS: metFORMIN (GLUCOPHAGE) 500 MG TAB PO ×2 (07:45→17:12)
[2017-06-11] MEDS: KETOCONAZOLE 2% CREAM TOP ×2 (09:00→19:51)
[2017-06-11] MEDS: ASPIRIN 81 MG ENTERIC TAB PO (09:00)
[2017-06-11] MEDS: FUROSEMIDE 40 MG TAB PO (09:57)
[2017-06-11] MEDS: guaiFENesin ER 600 MG TAB PO ×2 (09:58→22:09)
[2017-06-11] MEDS: SPIRONOLACTONE 25 MG TAB PO (09:59)
[2017-06-11] MEDS: CARVedilol 12.5 MG TAB PO ×2 (09:59→19:50)
[2017-06-11] MEDS: LISINOPRIL 20 MG TAB PO (10:01)
[2017-06-12] MEDS: IPRATROPIUM 0.5MG/ALBUTEROL 2.5MG INH SOL UD 3ML (DUONEB)(J7620) NEB ×3 (07:18→20:00)
[2017-06-12] MEDS: HumaLOG INSULIN (NovoLOG) PER UNIT SC ×4 (07:30→19:40)
[2017-06-12] MEDS: metFORMIN (GLUCOPHAGE) 500 MG TAB PO ×2 (08:46→16:37)
[2017-06-12] MEDS: ASPIRIN 81 MG ENTERIC TAB PO (09:09)
[2017-06-12] MEDS: FUROSEMIDE 40 MG TAB PO (09:10)
[2017-06-12] MEDS: guaiFENesin ER 600 MG TAB PO ×2 (09:10→21:58)
[2017-06-12] MEDS: CARVedilol 12.5 MG TAB PO ×2 (09:11→19:40)
[2017-06-12] MEDS: SPIRONOLACTONE 25 MG TAB PO (09:11)
[2017-06-12] MEDS: LISINOPRIL 20 MG TAB PO (09:11)
[2017-06-12] MEDS: KETOCONAZOLE 2% CREAM TOP ×2 (09:12→19:41)
[2017-06-13] MEDS: IPRATROPIUM 0.5MG/ALBUTEROL 2.5MG INH SOL UD 3ML (DUONEB)(J7620) NEB ×4 (01:01→20:00)
[2017-06-13] MEDS: FUROSEMIDE 40 MG TAB PO (10:41)
[2017-06-13] MEDS: guaiFENesin ER 600 MG TAB PO ×2 (10:41→20:59)
[2017-06-13] MEDS: LISINOPRIL 20 MG TAB PO (10:41)
[2017-06-13] MEDS: SPIRONOLACTONE 25 MG TAB PO (10:41)
[2017-06-13] MEDS: ASPIRIN 81 MG ENTERIC TAB PO (10:41)
[2017-06-13] MEDS: HumaLOG INSULIN (NovoLOG) PER UNIT SC ×4 (10:47→21:00)
[2017-06-13] MEDS: metFORMIN (GLUCOPHAGE) 500 MG TAB PO ×2 (10:47→16:50)
[2017-06-13] MEDS: KETOCONAZOLE 2% CREAM TOP ×2 (10:48→21:00)
[2017-06-13] MEDS: CARVedilol 12.5 MG TAB PO ×2 (10:48→21:00)
[2017-06-14] MEDS: IPRATROPIUM 0.5MG/ALBUTEROL 2.5MG INH SOL UD 3ML (DUONEB)(J7620) NEB ×4 (01:40→20:00)
[2017-06-14] MEDS: SPIRONOLACTONE 25 MG TAB PO (09:30)
[2017-06-14] MEDS: LISINOPRIL 20 MG TAB PO (09:30)
[2017-06-14] MEDS: FUROSEMIDE 40 MG TAB PO (09:30)
[2017-06-14] MEDS: guaiFENesin ER 600 MG TAB PO ×2 (09:31→21:19)
[2017-06-14] MEDS: ASPIRIN 81 MG ENTERIC TAB PO (09:31)
[2017-06-14] MEDS: HumaLOG INSULIN (NovoLOG) PER UNIT SC ×4 (11:45→21:00)
[2017-06-14] MEDS: KETOCONAZOLE 2% CREAM TOP ×2 (11:46→21:00)
[2017-06-14] MEDS: CARVedilol 12.5 MG TAB PO ×2 (11:46→21:00)
[2017-06-14] MEDS: metFORMIN (GLUCOPHAGE) 500 MG TAB PO ×2 (11:46→18:58)
[2017-06-15] MEDS: HumaLOG INSULIN (NovoLOG) PER UNIT SC ×4 (07:30→21:00)
[2017-06-15] MEDS: IPRATROPIUM 0.5MG/ALBUTEROL 2.5MG INH SOL UD 3ML (DUONEB)(J7620) NEB ×4 (07:42→22:35)
[2017-06-15] MEDS: metFORMIN (GLUCOPHAGE) 500 MG TAB PO ×2 (08:00→17:44)
[2017-06-15] MEDS: CARVedilol 12.5 MG TAB PO ×2 (08:08→21:00)
[2017-06-15] MEDS: KETOCONAZOLE 2% CREAM TOP ×2 (08:09→21:00)
[2017-06-15] MEDS: FUROSEMIDE 40 MG TAB PO (10:07)
[2017-06-15] MEDS: ASPIRIN 81 MG ENTERIC TAB PO (10:07)
[2017-06-15] MEDS: guaiFENesin ER 600 MG TAB PO ×2 (10:08→22:03)
[2017-06-15] MEDS: LISINOPRIL 20 MG TAB PO (10:08)
[2017-06-15] MEDS: SPIRONOLACTONE 25 MG TAB PO (10:08)
[2017-06-16] MEDS: IPRATROPIUM 0.5MG/ALBUTEROL 2.5MG INH SOL UD 3ML (DUONEB)(J7620) NEB ×4 (07:47→20:44)
[2017-06-16] MEDS: FUROSEMIDE 40 MG TAB PO (09:43)
[2017-06-16] MEDS: guaiFENesin ER 600 MG TAB PO ×2 (09:43→21:44)
[2017-06-16] MEDS: ASPIRIN 81 MG ENTERIC TAB PO (09:43)
[2017-06-16] MEDS: SPIRONOLACTONE 25 MG TAB PO (09:43)
[2017-06-16] MEDS: LISINOPRIL 20 MG TAB PO (09:50)
[2017-06-16] MEDS: metFORMIN (GLUCOPHAGE) 500 MG TAB PO ×2 (10:00→17:38)
[2017-06-16] MEDS: KETOCONAZOLE 2% CREAM TOP ×2 (10:00→21:00)
[2017-06-16] MEDS: HumaLOG INSULIN (NovoLOG) PER UNIT SC ×4 (10:00→21:00)
[2017-06-16] MEDS: CARVedilol 12.5 MG TAB PO ×2 (10:00→21:00)
[2017-06-17] MEDS: IPRATROPIUM 0.5MG/ALBUTEROL 2.5MG INH SOL UD 3ML (DUONEB)(J7620) NEB ×4 (07:37→22:57)
[2017-06-17] MEDS: FUROSEMIDE 40 MG TAB PO (09:26)
[2017-06-17] MEDS: guaiFENesin ER 600 MG TAB PO ×2 (09:26→21:28)
[2017-06-17] MEDS: ASPIRIN 81 MG ENTERIC TAB PO (09:26)
[2017-06-17] MEDS: SPIRONOLACTONE 25 MG TAB PO (09:26)
[2017-06-17] MEDS: LISINOPRIL 20 MG TAB PO (09:31)
[2017-06-17] MEDS: HumaLOG INSULIN (NovoLOG) PER UNIT SC ×4 (09:32→21:00)
[2017-06-17] MEDS: metFORMIN (GLUCOPHAGE) 500 MG TAB PO ×2 (10:08→17:54)
[2017-06-17] MEDS: CARVedilol 12.5 MG TAB PO ×2 (10:08→21:00)
[2017-06-17] MEDS: KETOCONAZOLE 2% CREAM TOP ×2 (10:09→21:00)
[2017-06-18] MEDS: HumaLOG INSULIN (NovoLOG) PER UNIT SC ×4 (07:30→21:00)
[2017-06-18] MEDS: IPRATROPIUM 0.5MG/ALBUTEROL 2.5MG INH SOL UD 3ML (DUONEB)(J7620) NEB ×3 (08:00→20:00)
[2017-06-18] MEDS: metFORMIN (GLUCOPHAGE) 500 MG TAB PO ×2 (08:00→18:00)
[2017-06-18] MEDS: CARVedilol 12.5 MG TAB PO ×2 (09:00→21:00)
[2017-06-18] MEDS: guaiFENesin ER 600 MG TAB PO ×2 (09:50→21:45)
[2017-06-18] MEDS: KETOCONAZOLE 2% CREAM TOP ×2 (09:50→21:00)
[2017-06-18] MEDS: SPIRONOLACTONE 25 MG TAB PO (09:50)
[2017-06-18] MEDS: FUROSEMIDE 40 MG TAB PO (09:50)
[2017-06-18] MEDS: LISINOPRIL 20 MG TAB PO (09:50)
[2017-06-18] MEDS: ASPIRIN 81 MG ENTERIC TAB PO (09:50)
[2017-06-19] MEDS: IPRATROPIUM 0.5MG/ALBUTEROL 2.5MG INH SOL UD 3ML (DUONEB)(J7620) NEB ×4 (01:55→19:24)
[2017-06-19] MEDS: HumaLOG INSULIN (NovoLOG) PER UNIT SC ×4 (07:30→21:00)
[2017-06-19] MEDS: metFORMIN (GLUCOPHAGE) 500 MG TAB PO ×2 (08:00→18:00)
[2017-06-19] MEDS: KETOCONAZOLE 2% CREAM TOP ×2 (09:00→21:00)
[2017-06-19] MEDS: CARVedilol 12.5 MG TAB PO ×2 (09:00→21:00)
[2017-06-19] MEDS: LISINOPRIL 20 MG TAB PO (10:10)
[2017-06-19] MEDS: SPIRONOLACTONE 25 MG TAB PO (10:11)
[2017-06-19] MEDS: guaiFENesin ER 600 MG TAB PO ×2 (10:11→21:16)
[2017-06-19] MEDS: ASPIRIN 81 MG ENTERIC TAB PO (10:11)
[2017-06-19] MEDS: FUROSEMIDE 40 MG TAB PO (10:11)
[2017-06-20] MEDS: IPRATROPIUM 0.5MG/ALBUTEROL 2.5MG INH SOL UD 3ML (DUONEB)(J7620) NEB ×4 (01:21→20:00)
[2017-06-20] MEDS: HumaLOG INSULIN (NovoLOG) PER UNIT SC ×4 (07:30→21:00)
[2017-06-20] MEDS: metFORMIN (GLUCOPHAGE) 500 MG TAB PO ×2 (07:59→16:16)
[2017-06-20] MEDS: CARVedilol 12.5 MG TAB PO ×2 (08:31→21:00)
[2017-06-20] MEDS: KETOCONAZOLE 2% CREAM TOP ×2 (08:32→21:00)
[2017-06-20] MEDS: ASPIRIN 81 MG ENTERIC TAB PO (09:18)
[2017-06-20] MEDS: SPIRONOLACTONE 25 MG TAB PO (09:18)
[2017-06-20] MEDS: LISINOPRIL 20 MG TAB PO (09:18)
[2017-06-20] MEDS: FUROSEMIDE 40 MG TAB PO (09:18)
[2017-06-20] MEDS: guaiFENesin ER 600 MG TAB PO ×2 (09:19→21:05)
[2017-06-21] MEDS: IPRATROPIUM 0.5MG/ALBUTEROL 2.5MG INH SOL UD 3ML (DUONEB)(J7620) NEB ×4 (02:00→20:00)
[2017-06-21] MEDS: HumaLOG INSULIN (NovoLOG) PER UNIT SC ×4 (07:12→21:00)
[2017-06-21] MEDS: metFORMIN (GLUCOPHAGE) 500 MG TAB PO ×2 (07:12→16:26)
[2017-06-21] MEDS: CARVedilol 12.5 MG TAB PO ×2 (07:13→21:00)
[2017-06-21] MEDS: KETOCONAZOLE 2% CREAM TOP ×2 (07:13→21:00)
[2017-06-21] MEDS: FUROSEMIDE 40 MG TAB PO (09:19)
[2017-06-21] MEDS: LISINOPRIL 20 MG TAB PO (09:19)
[2017-06-21] MEDS: guaiFENesin ER 600 MG TAB PO ×2 (09:19→21:09)
[2017-06-21] MEDS: ASPIRIN 81 MG ENTERIC TAB PO (09:19)
[2017-06-21] MEDS: SPIRONOLACTONE 25 MG TAB PO (09:19)
[2017-06-21] MEDS ORDERED: HALOPERIDOL 5 MG/ML VIAL (J1630) IM (10:15)
[2017-06-22] MEDS: IPRATROPIUM 0.5MG/ALBUTEROL 2.5MG INH SOL UD 3ML (DUONEB)(J7620) NEB ×4 (01:35→20:00)
[2017-06-22] MEDS: HumaLOG INSULIN (NovoLOG) PER UNIT SC ×4 (07:30→21:00)
[2017-06-22] MEDS: metFORMIN (GLUCOPHAGE) 500 MG TAB PO ×2 (07:48→16:10)
[2017-06-22] MEDS: CARVedilol 12.5 MG TAB PO ×2 (09:00→21:00)
[2017-06-22] MEDS: KETOCONAZOLE 2% CREAM TOP ×2 (09:00→21:00)
[2017-06-22] MEDS: LISINOPRIL 20 MG TAB PO (09:23)
[2017-06-22] MEDS: FUROSEMIDE 40 MG TAB PO (09:23)
[2017-06-22] MEDS: SPIRONOLACTONE 25 MG TAB PO (09:23)
[2017-06-22] MEDS: guaiFENesin ER 600 MG TAB PO ×2 (09:23→21:30)
[2017-06-22] MEDS: ASPIRIN 81 MG ENTERIC TAB PO (09:23)
[2017-06-23] MEDS: IPRATROPIUM 0.5MG/ALBUTEROL 2.5MG INH SOL UD 3ML (DUONEB)(J7620) NEB ×4 (02:00→20:00)
[2017-06-23] MEDS: HumaLOG INSULIN (NovoLOG) PER UNIT SC ×4 (07:30→20:11)
[2017-06-23] MEDS: metFORMIN (GLUCOPHAGE) 500 MG TAB PO ×2 (08:00→17:32)
[2017-06-23] MEDS: KETOCONAZOLE 2% CREAM TOP ×2 (08:34→20:11)
[2017-06-23] MEDS: CARVedilol 12.5 MG TAB PO ×2 (08:34→20:10)
[2017-06-23] MEDS: ASPIRIN 81 MG ENTERIC TAB PO (08:40)
[2017-06-23] MEDS: FUROSEMIDE 40 MG TAB PO (08:40)
[2017-06-23] MEDS: LISINOPRIL 20 MG TAB PO (08:41)
[2017-06-23] MEDS: SPIRONOLACTONE 25 MG TAB PO (08:41)
[2017-06-23] MEDS: guaiFENesin ER 600 MG TAB PO ×2 (08:41→20:56)
[2017-06-24] MEDS: IPRATROPIUM 0.5MG/ALBUTEROL 2.5MG INH SOL UD 3ML (DUONEB)(J7620) NEB ×4 (02:00→20:00)
[2017-06-24] MEDS: HumaLOG INSULIN (NovoLOG) PER UNIT SC ×4 (07:24→20:29)
[2017-06-24] MEDS: CARVedilol 12.5 MG TAB PO ×2 (07:25→20:29)
[2017-06-24] MEDS: metFORMIN (GLUCOPHAGE) 500 MG TAB PO ×2 (07:25→16:00)
[2017-06-24] MEDS: KETOCONAZOLE 2% CREAM TOP ×2 (09:00→20:30)
[2017-06-24] MEDS: guaiFENesin ER 600 MG TAB PO ×2 (09:29→21:09)
[2017-06-24] MEDS: SPIRONOLACTONE 25 MG TAB PO (09:30)
[2017-06-24] MEDS: FUROSEMIDE 40 MG TAB PO (09:30)
[2017-06-24] MEDS: ASPIRIN 81 MG ENTERIC TAB PO (09:30)
[2017-06-24] MEDS: LISINOPRIL 20 MG TAB PO (09:30)
[2017-06-25] MEDS: IPRATROPIUM 0.5MG/ALBUTEROL 2.5MG INH SOL UD 3ML (DUONEB)(J7620) NEB ×4 (02:00→20:00)
[2017-06-25] MEDS: HumaLOG INSULIN (NovoLOG) PER UNIT SC ×4 (07:30→21:00)
[2017-06-25] MEDS: metFORMIN (GLUCOPHAGE) 500 MG TAB PO ×2 (07:37→17:09)
[2017-06-25] MEDS: CARVedilol 12.5 MG TAB PO ×2 (07:37→21:00)
[2017-06-25] MEDS: KETOCONAZOLE 2% CREAM TOP ×2 (07:38→21:00)
[2017-06-25] MEDS: ASPIRIN 81 MG ENTERIC TAB PO (09:26)
[2017-06-25] MEDS: guaiFENesin ER 600 MG TAB PO ×2 (09:26→22:14)
[2017-06-25] MEDS: LISINOPRIL 20 MG TAB PO (09:26)
[2017-06-25] MEDS: SPIRONOLACTONE 25 MG TAB PO (09:26)
[2017-06-25] MEDS: FUROSEMIDE 40 MG TAB PO (09:26)
[2017-06-26] MEDS: IPRATROPIUM 0.5MG/ALBUTEROL 2.5MG INH SOL UD 3ML (DUONEB)(J7620) NEB ×4 (01:38→20:00)
[2017-06-26] MEDS: HumaLOG INSULIN (NovoLOG) PER UNIT SC ×4 (07:18→20:18)
[2017-06-26] MEDS: CARVedilol 12.5 MG TAB PO ×2 (07:19→20:18)
[2017-06-26] MEDS: metFORMIN (GLUCOPHAGE) 500 MG TAB PO ×2 (07:19→17:35)
[2017-06-26] MEDS: KETOCONAZOLE 2% CREAM TOP ×2 (07:20→20:18)
[2017-06-26] MEDS: ASPIRIN 81 MG ENTERIC TAB PO (09:00)
[2017-06-26] MEDS: guaiFENesin ER 600 MG TAB PO ×2 (09:30→20:27)
[2017-06-26] MEDS: LISINOPRIL 20 MG TAB PO (09:31)
[2017-06-26] MEDS: SPIRONOLACTONE 25 MG TAB PO (09:31)
[2017-06-26] MEDS: FUROSEMIDE 40 MG TAB PO (09:31)
[2017-06-27] MEDS: IPRATROPIUM 0.5MG/ALBUTEROL 2.5MG INH SOL UD 3ML (DUONEB)(J7620) NEB ×4 (01:55→20:00)
[2017-06-27] MEDS: HumaLOG INSULIN (NovoLOG) PER UNIT SC ×4 (07:30→20:28)
[2017-06-27] MEDS: CARVedilol 12.5 MG TAB PO ×2 (07:41→20:28)
[2017-06-27] MEDS: metFORMIN (GLUCOPHAGE) 500 MG TAB PO ×2 (07:41→17:34)
[2017-06-27] MEDS: KETOCONAZOLE 2% CREAM TOP ×2 (07:42→20:28)
[2017-06-27] MEDS: ASPIRIN 81 MG ENTERIC TAB PO (09:31)
[2017-06-27] MEDS: FUROSEMIDE 40 MG TAB PO (09:32)
[2017-06-27] MEDS: LISINOPRIL 20 MG TAB PO (09:32)
[2017-06-27] MEDS: SPIRONOLACTONE 25 MG TAB PO (09:32)
[2017-06-27] MEDS: guaiFENesin ER 600 MG TAB PO ×2 (09:32→21:39)
[2017-06-28] MEDS: IPRATROPIUM 0.5MG/ALBUTEROL 2.5MG INH SOL UD 3ML (DUONEB)(J7620) NEB ×4 (02:00→20:00)
[2017-06-28] MEDS: HumaLOG INSULIN (NovoLOG) PER UNIT SC ×4 (07:29→20:52)
[2017-06-28] MEDS: metFORMIN (GLUCOPHAGE) 500 MG TAB PO ×2 (07:30→16:02)
[2017-06-28] MEDS: CARVedilol 12.5 MG TAB PO ×2 (07:31→20:52)
[2017-06-28] MEDS: KETOCONAZOLE 2% CREAM TOP ×2 (07:31→20:52)
[2017-06-28] MEDS: FUROSEMIDE 40 MG TAB PO (09:31)
[2017-06-28] MEDS: SPIRONOLACTONE 25 MG TAB PO (09:31)
[2017-06-28] MEDS: guaiFENesin ER 600 MG TAB PO ×2 (09:31→21:34)
[2017-06-28] MEDS: LISINOPRIL 20 MG TAB PO (09:31)
[2017-06-28] MEDS: ASPIRIN 81 MG ENTERIC TAB PO (09:31)
[2017-06-29] MEDS: IPRATROPIUM 0.5MG/ALBUTEROL 2.5MG INH SOL UD 3ML (DUONEB)(J7620) NEB ×4 (00:49→20:00)
[2017-06-29] MEDS: HumaLOG INSULIN (NovoLOG) PER UNIT SC ×4 (07:30→20:08)
[2017-06-29] MEDS: metFORMIN (GLUCOPHAGE) 500 MG TAB PO ×2 (07:35→15:58)
[2017-06-29] MEDS: CARVedilol 12.5 MG TAB PO ×2 (07:36→20:08)
[2017-06-29] MEDS: KETOCONAZOLE 2% CREAM TOP ×2 (07:36→20:08)
[2017-06-29] MEDS: guaiFENesin ER 600 MG TAB PO ×2 (09:46→21:29)
[2017-06-29] MEDS: ASPIRIN 81 MG ENTERIC TAB PO (09:47)
[2017-06-29] MEDS: FUROSEMIDE 40 MG TAB PO (09:47)
[2017-06-29] MEDS: LISINOPRIL 20 MG TAB PO (09:47)
[2017-06-29] MEDS: SPIRONOLACTONE 25 MG TAB PO (09:47)
[2017-06-30] MEDS: IPRATROPIUM 0.5MG/ALBUTEROL 2.5MG INH SOL UD 3ML (DUONEB)(J7620) NEB ×4 (02:00→20:00)
[2017-06-30] MEDS: HumaLOG INSULIN (NovoLOG) PER UNIT SC ×4 (07:30→21:00)
[2017-06-30] MEDS: metFORMIN (GLUCOPHAGE) 500 MG TAB PO ×2 (08:00→11:58)
[2017-06-30] MEDS: CARVedilol 12.5 MG TAB PO ×2 (08:15→21:00)
[2017-06-30] MEDS: KETOCONAZOLE 2% CREAM TOP ×2 (08:16→21:00)
[2017-06-30] MEDS: FUROSEMIDE 40 MG TAB PO (09:37)
[2017-06-30] MEDS: LISINOPRIL 20 MG TAB PO (09:37)
[2017-06-30] MEDS: ASPIRIN 81 MG ENTERIC TAB PO (09:37)
[2017-06-30] MEDS: SPIRONOLACTONE 25 MG TAB PO (09:37)
[2017-06-30] MEDS: guaiFENesin ER 600 MG TAB PO ×2 (09:37→21:30)
[2017-07-01] MEDS: IPRATROPIUM 0.5MG/ALBUTEROL 2.5MG INH SOL UD 3ML (DUONEB)(J7620) NEB ×4 (01:53→20:00)
[2017-07-01] MEDS: metFORMIN (GLUCOPHAGE) 500 MG TAB PO ×2 (07:17→10:37)
[2017-07-01] MEDS: HumaLOG INSULIN (NovoLOG) PER UNIT SC ×4 (07:17→21:00)
[2017-07-01] MEDS: KETOCONAZOLE 2% CREAM TOP ×2 (07:18→21:00)
[2017-07-01] MEDS: CARVedilol 12.5 MG TAB PO ×2 (07:18→21:00)
[2017-07-01] MEDS: LISINOPRIL 20 MG TAB PO (10:06)
[2017-07-01] MEDS: ASPIRIN 81 MG ENTERIC TAB PO (10:07)
[2017-07-01] MEDS: SPIRONOLACTONE 25 MG TAB PO (10:07)
[2017-07-01] MEDS: guaiFENesin ER 600 MG TAB PO ×2 (10:07→22:16)
[2017-07-01] MEDS: FUROSEMIDE 40 MG TAB PO (10:07)
[2017-07-02] MEDS: IPRATROPIUM 0.5MG/ALBUTEROL 2.5MG INH SOL UD 3ML (DUONEB)(J7620) NEB ×5 (02:00→23:48)
[2017-07-02] MEDS: HumaLOG INSULIN (NovoLOG) PER UNIT SC ×5 (07:30→20:57)
[2017-07-02] MEDS: metFORMIN (GLUCOPHAGE) 500 MG TAB PO ×2 (08:00→18:00)
[2017-07-02] MEDS: KETOCONAZOLE 2% CREAM TOP ×2 (08:05→20:57)
[2017-07-02] MEDS: CARVedilol 12.5 MG TAB PO ×2 (08:05→20:57)
[2017-07-02] MEDS: SPIRONOLACTONE 25 MG TAB PO (09:28)
[2017-07-02] MEDS: guaiFENesin ER 600 MG TAB PO ×2 (09:28→21:26)
[2017-07-02] MEDS: ASPIRIN 81 MG ENTERIC TAB PO (09:28)
[2017-07-02] MEDS: LISINOPRIL 20 MG TAB PO (09:28)
[2017-07-02] MEDS: FUROSEMIDE 40 MG TAB PO (09:28)
[2017-07-03] MEDS: IPRATROPIUM 0.5MG/ALBUTEROL 2.5MG INH SOL UD 3ML (DUONEB)(J7620) NEB ×3 (07:23→20:00)
[2017-07-03] MEDS: CARVedilol 12.5 MG TAB PO ×2 (07:43→21:00)
[2017-07-03] MEDS: metFORMIN (GLUCOPHAGE) 500 MG TAB PO ×2 (07:43→18:00)
[2017-07-03] MEDS: KETOCONAZOLE 2% CREAM TOP ×2 (07:44→21:00)
[2017-07-03] MEDS: HumaLOG INSULIN (NovoLOG) PER UNIT SC ×3 (07:45→17:30)
[2017-07-03] MEDS: guaiFENesin ER 600 MG TAB PO ×2 (09:35→21:05)
[2017-07-03] MEDS: LISINOPRIL 20 MG TAB PO (09:36)
[2017-07-03] MEDS: SPIRONOLACTONE 25 MG TAB PO (09:36)
[2017-07-03] MEDS: ASPIRIN 81 MG ENTERIC TAB PO (09:36)
[2017-07-03] MEDS: FUROSEMIDE 40 MG TAB PO (09:36)
[2017-07-04] MEDS: IPRATROPIUM 0.5MG/ALBUTEROL 2.5MG INH SOL UD 3ML (DUONEB)(J7620) NEB ×5 (02:00→23:50)
[2017-07-04] MEDS: HumaLOG INSULIN (NovoLOG) PER UNIT SC ×4 (07:30→21:00)
[2017-07-04] MEDS: metFORMIN (GLUCOPHAGE) 500 MG TAB PO ×2 (08:00→18:00)
[2017-07-04] MEDS: CARVedilol 12.5 MG TAB PO ×2 (08:30→21:00)
[2017-07-04] MEDS: KETOCONAZOLE 2% CREAM TOP ×2 (08:34→21:00)
[2017-07-04] MEDS: FUROSEMIDE 40 MG TAB PO (10:23)
[2017-07-04] MEDS: SPIRONOLACTONE 25 MG TAB PO (10:24)
[2017-07-04] MEDS: LISINOPRIL 20 MG TAB PO (10:24)
[2017-07-04] MEDS: guaiFENesin ER 600 MG TAB PO ×2 (10:24→21:28)
[2017-07-04] MEDS: ASPIRIN 81 MG ENTERIC TAB PO (10:24)
[2017-07-05] MEDS: HumaLOG INSULIN (NovoLOG) PER UNIT SC ×4 (07:30→21:00)
[2017-07-05] MEDS: metFORMIN (GLUCOPHAGE) 500 MG TAB PO ×2 (07:48→14:18)
[2017-07-05] MEDS: CARVedilol 12.5 MG TAB PO ×2 (07:48→21:00)
[2017-07-05] MEDS: KETOCONAZOLE 2% CREAM TOP ×2 (07:49→21:00)
[2017-07-05] MEDS: IPRATROPIUM 0.5MG/ALBUTEROL 2.5MG INH SOL UD 3ML (DUONEB)(J7620) NEB ×3 (08:00→20:00)
[2017-07-05] MEDS: guaiFENesin ER 600 MG TAB PO ×2 (09:38→21:19)
[2017-07-05] MEDS: LISINOPRIL 20 MG TAB PO (09:38)
[2017-07-05] MEDS: SPIRONOLACTONE 25 MG TAB PO (09:38)
[2017-07-05] MEDS: FUROSEMIDE 40 MG TAB PO (09:38)
[2017-07-05] MEDS: ASPIRIN 81 MG ENTERIC TAB PO (09:38)
[2017-07-06] MEDS: IPRATROPIUM 0.5MG/ALBUTEROL 2.5MG INH SOL UD 3ML (DUONEB)(J7620) NEB ×4 (01:42→19:35)
[2017-07-06] MEDS: HumaLOG INSULIN (NovoLOG) PER UNIT SC ×4 (07:30→08:55)
[2017-07-06] MEDS: metFORMIN (GLUCOPHAGE) 500 MG TAB PO ×2 (08:00→08:56)
[2017-07-06] MEDS: CARVedilol 12.5 MG TAB PO ×2 (08:54→21:38)
[2017-07-06] MEDS: KETOCONAZOLE 2% CREAM TOP ×2 (08:54→21:37)
[2017-07-06] MEDS: LISINOPRIL 20 MG TAB PO (09:21)
[2017-07-06] MEDS: SPIRONOLACTONE 25 MG TAB PO (09:21)
[2017-07-06] MEDS: guaiFENesin ER 600 MG TAB PO ×2 (09:21→21:36)
[2017-07-06] MEDS: FUROSEMIDE 40 MG TAB PO (09:22)
[2017-07-06] MEDS: ASPIRIN 81 MG ENTERIC TAB PO (09:22)
[2017-07-07] MEDS: IPRATROPIUM 0.5MG/ALBUTEROL 2.5MG INH SOL UD 3ML (DUONEB)(J7620) NEB ×4 (01:44→19:52)
[2017-07-07] MEDS: HumaLOG INSULIN (NovoLOG) PER UNIT SC ×4 (07:30→20:35)
[2017-07-07] MEDS: metFORMIN (GLUCOPHAGE) 500 MG TAB PO ×2 (07:41→17:21)
[2017-07-07] MEDS: CARVedilol 12.5 MG TAB PO ×2 (09:00→20:35)
[2017-07-07] MEDS: KETOCONAZOLE 2% CREAM TOP ×2 (09:00→20:36)
[2017-07-07] MEDS: FUROSEMIDE 40 MG TAB PO (09:37)
[2017-07-07] MEDS: guaiFENesin ER 600 MG TAB PO ×2 (09:38→21:30)
[2017-07-07] MEDS: SPIRONOLACTONE 25 MG TAB PO (09:38)
[2017-07-07] MEDS: ASPIRIN 81 MG ENTERIC TAB PO (09:38)
[2017-07-07] MEDS: LISINOPRIL 20 MG TAB PO (09:43)
[2017-07-08] MEDS: IPRATROPIUM 0.5MG/ALBUTEROL 2.5MG INH SOL UD 3ML (DUONEB)(J7620) NEB ×4 (02:00→20:00)
[2017-07-08] MEDS: HumaLOG INSULIN (NovoLOG) PER UNIT SC ×4 (07:30→21:00)
[2017-07-08] MEDS: metFORMIN (GLUCOPHAGE) 500 MG TAB PO ×2 (08:00→14:58)
[2017-07-08] MEDS: CARVedilol 12.5 MG TAB PO ×2 (08:09→21:00)
[2017-07-08] MEDS: KETOCONAZOLE 2% CREAM TOP ×2 (08:10→21:00)
[2017-07-08] MEDS: LISINOPRIL 20 MG TAB PO (09:48)
[2017-07-08] MEDS: SPIRONOLACTONE 25 MG TAB PO (09:49)
[2017-07-08] MEDS: guaiFENesin ER 600 MG TAB PO ×2 (09:49→21:19)
[2017-07-08] MEDS: ASPIRIN 81 MG ENTERIC TAB PO (09:49)
[2017-07-08] MEDS: FUROSEMIDE 40 MG TAB PO (09:49)
[2017-07-09] MEDS: IPRATROPIUM 0.5MG/ALBUTEROL 2.5MG INH SOL UD 3ML (DUONEB)(J7620) NEB ×3 (01:22→20:00)
[2017-07-09] MEDS: HumaLOG INSULIN (NovoLOG) PER UNIT SC ×4 (07:19→21:00)
[2017-07-09] MEDS: metFORMIN (GLUCOPHAGE) 500 MG TAB PO ×2 (07:22→18:00)
[2017-07-09] MEDS: KETOCONAZOLE 2% CREAM TOP ×2 (07:23→21:00)
[2017-07-09] MEDS: CARVedilol 12.5 MG TAB PO ×2 (07:23→21:00)
[2017-07-09] MEDS: ASPIRIN 81 MG ENTERIC TAB PO (09:24)
[2017-07-09] MEDS: LISINOPRIL 20 MG TAB PO (09:24)
[2017-07-09] MEDS: guaiFENesin ER 600 MG TAB PO ×2 (09:24→21:33)
[2017-07-09] MEDS: SPIRONOLACTONE 25 MG TAB PO (09:24)
[2017-07-09] MEDS: FUROSEMIDE 40 MG TAB PO (09:25)
[2017-07-10] MEDS: IPRATROPIUM 0.5MG/ALBUTEROL 2.5MG INH SOL UD 3ML (DUONEB)(J7620) NEB ×3 (01:57→20:53)
[2017-07-10] MEDS: HumaLOG INSULIN (NovoLOG) PER UNIT SC ×4 (07:30→21:00)
[2017-07-10] MEDS: KETOCONAZOLE 2% CREAM TOP ×2 (07:53→21:00)
[2017-07-10] MEDS: metFORMIN (GLUCOPHAGE) 500 MG TAB PO ×2 (07:53→16:47)
[2017-07-10] MEDS: CARVedilol 12.5 MG TAB PO ×2 (07:53→21:00)
[2017-07-10] MEDS: guaiFENesin ER 600 MG TAB PO ×2 (09:21→21:39)
[2017-07-10] MEDS: ASPIRIN 81 MG ENTERIC TAB PO (09:21)
[2017-07-10] MEDS: SPIRONOLACTONE 25 MG TAB PO (09:21)
[2017-07-10] MEDS: FUROSEMIDE 40 MG TAB PO (09:21)
[2017-07-10] MEDS: LISINOPRIL 20 MG TAB PO (09:22)
[2017-07-11] MEDS: HumaLOG INSULIN (NovoLOG) PER UNIT SC ×4 (07:17→21:00)
[2017-07-11] MEDS: metFORMIN (GLUCOPHAGE) 500 MG TAB PO ×2 (07:17→16:45)
[2017-07-11] MEDS: KETOCONAZOLE 2% CREAM TOP ×2 (07:18→21:00)
[2017-07-11] MEDS: CARVedilol 12.5 MG TAB PO ×2 (07:18→21:00)
[2017-07-11] MEDS: IPRATROPIUM 0.5MG/ALBUTEROL 2.5MG INH SOL UD 3ML (DUONEB)(J7620) NEB ×3 (07:34→20:00)
[2017-07-11] MEDS: FUROSEMIDE 40 MG TAB PO (09:35)
[2017-07-11] MEDS: guaiFENesin ER 600 MG TAB PO ×2 (09:35→21:37)
[2017-07-11] MEDS: LISINOPRIL 20 MG TAB PO (09:35)
[2017-07-11] MEDS: ASPIRIN 81 MG ENTERIC TAB PO (09:35)
[2017-07-11] MEDS: SPIRONOLACTONE 25 MG TAB PO (09:35)
[2017-07-12] MEDS: IPRATROPIUM 0.5MG/ALBUTEROL 2.5MG INH SOL UD 3ML (DUONEB)(J7620) NEB ×5 (00:15→21:23)
[2017-07-12] MEDS: HumaLOG INSULIN (NovoLOG) PER UNIT SC ×4 (07:31→21:00)
[2017-07-12] MEDS: metFORMIN (GLUCOPHAGE) 500 MG TAB PO ×2 (07:32→17:00)
[2017-07-12] MEDS: guaiFENesin ER 600 MG TAB PO ×2 (09:52→21:56)
[2017-07-12] MEDS: ASPIRIN 81 MG ENTERIC TAB PO (09:52)
[2017-07-12] MEDS: LISINOPRIL 20 MG TAB PO (09:53)
[2017-07-12] MEDS: SPIRONOLACTONE 25 MG TAB PO (09:53)
[2017-07-12] MEDS: FUROSEMIDE 40 MG TAB PO (09:53)
[2017-07-12] MEDS: KETOCONAZOLE 2% CREAM TOP ×2 (09:53→21:00)
[2017-07-12] MEDS: CARVedilol 12.5 MG TAB PO ×2 (09:54→21:00)
[2017-07-13] MEDS: HumaLOG INSULIN (NovoLOG) PER UNIT SC ×4 (07:30→21:00)
[2017-07-13] MEDS: CARVedilol 12.5 MG TAB PO ×2 (07:36→21:00)
[2017-07-13] MEDS: KETOCONAZOLE 2% CREAM TOP ×2 (07:36→21:00)
[2017-07-13] MEDS: metFORMIN (GLUCOPHAGE) 500 MG TAB PO ×2 (07:36→18:00)
[2017-07-13] MEDS: IPRATROPIUM 0.5MG/ALBUTEROL 2.5MG INH SOL UD 3ML (DUONEB)(J7620) NEB ×4 (08:00→23:56)
[2017-07-13] MEDS: FUROSEMIDE 40 MG TAB PO (09:35)
[2017-07-13] MEDS: SPIRONOLACTONE 25 MG TAB PO (09:35)
[2017-07-13] MEDS: ASPIRIN 81 MG ENTERIC TAB PO (09:35)
[2017-07-13] MEDS: guaiFENesin ER 600 MG TAB PO ×2 (09:35→21:50)
[2017-07-13] MEDS: LISINOPRIL 20 MG TAB PO (09:35)
[2017-07-14] MEDS: HumaLOG INSULIN (NovoLOG) PER UNIT SC ×4 (07:25→21:00)
[2017-07-14] MEDS: CARVedilol 12.5 MG TAB PO ×2 (07:26→21:00)
[2017-07-14] MEDS: KETOCONAZOLE 2% CREAM TOP ×2 (07:26→21:00)
[2017-07-14] MEDS: metFORMIN (GLUCOPHAGE) 500 MG TAB PO ×2 (07:26→17:59)
[2017-07-14] MEDS: IPRATROPIUM 0.5MG/ALBUTEROL 2.5MG INH SOL UD 3ML (DUONEB)(J7620) NEB ×3 (08:00→20:00)
[2017-07-14] MEDS: FUROSEMIDE 40 MG TAB PO (09:22)
[2017-07-14] MEDS: LISINOPRIL 20 MG TAB PO (09:22)
[2017-07-14] MEDS: SPIRONOLACTONE 25 MG TAB PO (09:22)
[2017-07-14] MEDS: guaiFENesin ER 600 MG TAB PO ×2 (09:22→21:32)
[2017-07-14] MEDS: ASPIRIN 81 MG ENTERIC TAB PO (09:22)
[2017-07-15] MEDS: IPRATROPIUM 0.5MG/ALBUTEROL 2.5MG INH SOL UD 3ML (DUONEB)(J7620) NEB ×4 (00:22→20:00)
[2017-07-15] MEDS: CARVedilol 12.5 MG TAB PO ×2 (07:20→21:00)
[2017-07-15] MEDS: HumaLOG INSULIN (NovoLOG) PER UNIT SC ×4 (07:20→21:00)
[2017-07-15] MEDS: metFORMIN (GLUCOPHAGE) 500 MG TAB PO ×2 (07:20→16:20)
[2017-07-15] MEDS: KETOCONAZOLE 2% CREAM TOP ×2 (07:21→21:00)
[2017-07-15] MEDS: ASPIRIN 81 MG ENTERIC TAB PO (09:59)
[2017-07-15] MEDS: SPIRONOLACTONE 25 MG TAB PO (09:59)
[2017-07-15] MEDS: LISINOPRIL 20 MG TAB PO (09:59)
[2017-07-15] MEDS: guaiFENesin ER 600 MG TAB PO ×2 (09:59→21:32)
[2017-07-15] MEDS: FUROSEMIDE 40 MG TAB PO (09:59)
[2017-07-16] MEDS: IPRATROPIUM 0.5MG/ALBUTEROL 2.5MG INH SOL UD 3ML (DUONEB)(J7620) NEB ×4 (01:52→20:00)
[2017-07-16] MEDS: metFORMIN (GLUCOPHAGE) 500 MG TAB PO ×2 (07:46→16:24)
[2017-07-16] MEDS: HumaLOG INSULIN (NovoLOG) PER UNIT SC ×4 (07:46→21:00)
[2017-07-16] MEDS: KETOCONAZOLE 2% CREAM TOP ×2 (07:47→21:00)
[2017-07-16] MEDS: CARVedilol 12.5 MG TAB PO ×2 (09:28→21:00)
[2017-07-16] MEDS: guaiFENesin ER 600 MG TAB PO ×2 (09:39→21:30)
[2017-07-16] MEDS: FUROSEMIDE 40 MG TAB PO (09:39)
[2017-07-16] MEDS: SPIRONOLACTONE 25 MG TAB PO (09:39)
[2017-07-16] MEDS: ASPIRIN 81 MG ENTERIC TAB PO (09:39)
[2017-07-16] MEDS: LISINOPRIL 20 MG TAB PO (09:39)
[2017-07-17] MEDS: IPRATROPIUM 0.5MG/ALBUTEROL 2.5MG INH SOL UD 3ML (DUONEB)(J7620) NEB ×4 (02:00→20:00)
[2017-07-17] MEDS: HumaLOG INSULIN (NovoLOG) PER UNIT SC ×4 (07:23→21:00)
[2017-07-17] MEDS: metFORMIN (GLUCOPHAGE) 500 MG TAB PO ×2 (07:24→16:37)
[2017-07-17] MEDS: CARVedilol 12.5 MG TAB PO ×2 (07:24→21:00)
[2017-07-17] MEDS: KETOCONAZOLE 2% CREAM TOP (07:25)
[2017-07-17] MEDS: guaiFENesin ER 600 MG TAB PO ×2 (09:42→21:41)
[2017-07-17] MEDS: SPIRONOLACTONE 25 MG TAB PO (09:43)
[2017-07-17] MEDS: LISINOPRIL 20 MG TAB PO (09:43)
[2017-07-17] MEDS: ASPIRIN 81 MG ENTERIC TAB PO (09:43)
[2017-07-17] MEDS: FUROSEMIDE 40 MG TAB PO (09:43)
[2017-07-18] MEDS: IPRATROPIUM 0.5MG/ALBUTEROL 2.5MG INH SOL UD 3ML (DUONEB)(J7620) NEB ×4 (02:00→20:00)
[2017-07-18] MEDS: HumaLOG INSULIN (NovoLOG) PER UNIT SC ×4 (07:30→21:00)
[2017-07-18] MEDS: metFORMIN (GLUCOPHAGE) 500 MG TAB PO ×2 (08:00→17:04)
[2017-07-18] MEDS: CARVedilol 12.5 MG TAB PO ×2 (09:00→21:00)
[2017-07-18] MEDS: SPIRONOLACTONE 25 MG TAB PO (09:34)
[2017-07-18] MEDS: ASPIRIN 81 MG ENTERIC TAB PO (09:34)
[2017-07-18] MEDS: LISINOPRIL 20 MG TAB PO (09:34)
[2017-07-18] MEDS: FUROSEMIDE 40 MG TAB PO (09:34)
[2017-07-18] MEDS: guaiFENesin ER 600 MG TAB PO ×2 (09:34→21:33)
[2017-07-19] MEDS: IPRATROPIUM 0.5MG/ALBUTEROL 2.5MG INH SOL UD 3ML (DUONEB)(J7620) NEB ×4 (01:30→19:24)
[2017-07-19] MEDS: HumaLOG INSULIN (NovoLOG) PER UNIT SC ×4 (07:43→21:00)
[2017-07-19] MEDS: CARVedilol 12.5 MG TAB PO ×2 (07:44→21:00)
[2017-07-19] MEDS: metFORMIN (GLUCOPHAGE) 500 MG TAB PO ×2 (07:44→16:55)
[2017-07-19] MEDS: FUROSEMIDE 40 MG TAB PO (09:30)
[2017-07-19] MEDS: ASPIRIN 81 MG ENTERIC TAB PO (09:30)
[2017-07-19] MEDS: LISINOPRIL 20 MG TAB PO (09:30)
[2017-07-19] MEDS: guaiFENesin ER 600 MG TAB PO ×2 (09:30→21:48)
[2017-07-19] MEDS: SPIRONOLACTONE 25 MG TAB PO (09:30)
[2017-07-20] MEDS: IPRATROPIUM 0.5MG/ALBUTEROL 2.5MG INH SOL UD 3ML (DUONEB)(J7620) NEB ×5 (02:00→23:35)
[2017-07-20] MEDS: HumaLOG INSULIN (NovoLOG) PER UNIT SC ×4 (07:30→20:00)
[2017-07-20] MEDS: metFORMIN (GLUCOPHAGE) 500 MG TAB PO ×2 (08:00→16:01)
[2017-07-20] MEDS: CARVedilol 12.5 MG TAB PO ×2 (09:00→20:00)
[2017-07-20] MEDS: LISINOPRIL 20 MG TAB PO (09:36)
[2017-07-20] MEDS: ASPIRIN 81 MG ENTERIC TAB PO (09:36)
[2017-07-20] MEDS: guaiFENesin ER 600 MG TAB PO ×2 (09:36→21:34)
[2017-07-20] MEDS: FUROSEMIDE 40 MG TAB PO (09:36)
[2017-07-20] MEDS: SPIRONOLACTONE 25 MG TAB PO (09:36)
[2017-07-21] MEDS: HumaLOG INSULIN (NovoLOG) PER UNIT SC ×4 (07:24→21:00)
[2017-07-21] MEDS: CARVedilol 12.5 MG TAB PO ×2 (07:24→21:00)
[2017-07-21] MEDS: metFORMIN (GLUCOPHAGE) 500 MG TAB PO ×2 (07:24→16:33)
[2017-07-21] MEDS: IPRATROPIUM 0.5MG/ALBUTEROL 2.5MG INH SOL UD 3ML (DUONEB)(J7620) NEB (08:00)
[2017-07-21] MEDS: FUROSEMIDE 40 MG TAB PO (09:41)
[2017-07-21] MEDS: guaiFENesin ER 600 MG TAB PO ×2 (09:41→21:35)
[2017-07-21] MEDS: SPIRONOLACTONE 25 MG TAB PO (09:41)
[2017-07-21] MEDS: LISINOPRIL 20 MG TAB PO (09:42)
[2017-07-21] MEDS: ASPIRIN 81 MG ENTERIC TAB PO (09:42)
[2017-07-22] MEDS: HumaLOG INSULIN (NovoLOG) PER UNIT SC ×4 (07:30→21:00)
[2017-07-22] MEDS: CARVedilol 12.5 MG TAB PO ×2 (07:41→21:00)
[2017-07-22] MEDS: metFORMIN (GLUCOPHAGE) 500 MG TAB PO ×2 (07:42→16:37)
[2017-07-22] MEDS: FUROSEMIDE 40 MG TAB PO (09:26)
[2017-07-22] MEDS: guaiFENesin ER 600 MG TAB PO ×2 (09:26→21:21)
[2017-07-22] MEDS: SPIRONOLACTONE 25 MG TAB PO (09:27)
[2017-07-22] MEDS: ASPIRIN 81 MG ENTERIC TAB PO (09:27)
[2017-07-22] MEDS: LISINOPRIL 20 MG TAB PO (09:30)
[2017-07-23] MEDS: HumaLOG INSULIN (NovoLOG) PER UNIT SC ×4 (09:48→21:00)
[2017-07-23] MEDS: metFORMIN (GLUCOPHAGE) 500 MG TAB PO ×2 (09:48→18:00)
[2017-07-23] MEDS: CARVedilol 12.5 MG TAB PO ×2 (09:49→21:00)
[2017-07-23] MEDS: SPIRONOLACTONE 25 MG TAB PO (10:00)
[2017-07-23] MEDS: FUROSEMIDE 40 MG TAB PO (10:00)
[2017-07-23] MEDS: guaiFENesin ER 600 MG TAB PO ×2 (10:00→21:44)
[2017-07-23] MEDS: LISINOPRIL 20 MG TAB PO (10:01)
[2017-07-23] MEDS: ASPIRIN 81 MG ENTERIC TAB PO (10:59)
[2017-07-24] MEDS: metFORMIN (GLUCOPHAGE) 500 MG TAB PO ×2 (07:23→17:18)
[2017-07-24] MEDS: CARVedilol 12.5 MG TAB PO ×2 (07:23→20:19)
[2017-07-24] MEDS: HumaLOG INSULIN (NovoLOG) PER UNIT SC ×4 (07:23→20:19)
[2017-07-24] MEDS: FUROSEMIDE 40 MG TAB PO (10:08)
[2017-07-24] MEDS: ASPIRIN 81 MG ENTERIC TAB PO (10:08)
[2017-07-24] MEDS: guaiFENesin ER 600 MG TAB PO ×2 (10:08→22:04)
[2017-07-24] MEDS: SPIRONOLACTONE 25 MG TAB PO (10:08)
[2017-07-24] MEDS: LISINOPRIL 20 MG TAB PO (10:08)
[2017-07-25] MEDS: metFORMIN (GLUCOPHAGE) 500 MG TAB PO ×2 (07:04→17:46)
[2017-07-25] MEDS: HumaLOG INSULIN (NovoLOG) PER UNIT SC ×4 (07:04→21:31)
[2017-07-25] MEDS: CARVedilol 12.5 MG TAB PO ×2 (09:00→21:31)
[2017-07-25] MEDS: ASPIRIN 81 MG ENTERIC TAB PO (09:39)
[2017-07-25] MEDS: LISINOPRIL 20 MG TAB PO (09:39)
[2017-07-25] MEDS: FUROSEMIDE 40 MG TAB PO (09:39)
[2017-07-25] MEDS: guaiFENesin ER 600 MG TAB PO ×2 (09:39→21:58)
[2017-07-25] MEDS: SPIRONOLACTONE 25 MG TAB PO (09:39)
[2017-07-26] MEDS: metFORMIN (GLUCOPHAGE) 500 MG TAB PO ×2 (07:27→11:54)
[2017-07-26] MEDS: HumaLOG INSULIN (NovoLOG) PER UNIT SC ×4 (07:27→21:30)
[2017-07-26] MEDS: CARVedilol 12.5 MG TAB PO ×2 (09:00→21:30)
[2017-07-26] MEDS: ASPIRIN 81 MG ENTERIC TAB PO (09:42)
[2017-07-26] MEDS: guaiFENesin ER 600 MG TAB PO ×2 (09:42→21:30)
[2017-07-26] MEDS: SPIRONOLACTONE 25 MG TAB PO (09:42)
[2017-07-26] MEDS: FUROSEMIDE 40 MG TAB PO (09:42)
[2017-07-26] MEDS: LISINOPRIL 20 MG TAB PO (09:42)
[2017-07-27] MEDS: HumaLOG INSULIN (NovoLOG) PER UNIT SC ×4 (07:30→19:34)
[2017-07-27] MEDS: metFORMIN (GLUCOPHAGE) 500 MG TAB PO ×2 (08:00→17:10)
[2017-07-27] MEDS: CARVedilol 12.5 MG TAB PO ×2 (08:51→19:34)
[2017-07-27] MEDS: guaiFENesin ER 600 MG TAB PO ×2 (09:40→21:33)
[2017-07-27] MEDS: ASPIRIN 81 MG ENTERIC TAB PO (09:41)
[2017-07-27] MEDS: FUROSEMIDE 40 MG TAB PO (09:41)
[2017-07-27] MEDS: SPIRONOLACTONE 25 MG TAB PO (09:41)
[2017-07-27] MEDS: LISINOPRIL 20 MG TAB PO (09:41)
[2017-07-28] MEDS: HumaLOG INSULIN (NovoLOG) PER UNIT SC ×4 (07:30→21:38)
[2017-07-28] MEDS: metFORMIN (GLUCOPHAGE) 500 MG TAB PO ×2 (08:00→17:12)
[2017-07-28] MEDS: CARVedilol 12.5 MG TAB PO ×2 (09:00→21:38)
[2017-07-28] MEDS: LISINOPRIL 20 MG TAB PO (09:38)
[2017-07-28] MEDS: FUROSEMIDE 40 MG TAB PO (09:38)
[2017-07-28] MEDS: SPIRONOLACTONE 25 MG TAB PO (09:38)
[2017-07-28] MEDS: ASPIRIN 81 MG ENTERIC TAB PO (09:38)
[2017-07-28] MEDS: guaiFENesin ER 600 MG TAB PO ×2 (09:38→21:38)
[2017-07-29] MEDS: HumaLOG INSULIN (NovoLOG) PER UNIT SC ×4 (07:25→21:00)
[2017-07-29] MEDS: metFORMIN (GLUCOPHAGE) 500 MG TAB PO ×2 (07:26→11:23)
[2017-07-29] MEDS: CARVedilol 12.5 MG TAB PO ×2 (08:37→21:00)
[2017-07-29] MEDS: SPIRONOLACTONE 25 MG TAB PO (10:10)
[2017-07-29] MEDS: ASPIRIN 81 MG ENTERIC TAB PO (10:10)
[2017-07-29] MEDS: LISINOPRIL 20 MG TAB PO (10:11)
[2017-07-29] MEDS: FUROSEMIDE 40 MG TAB PO (10:11)
[2017-07-29] MEDS: guaiFENesin ER 600 MG TAB PO ×2 (10:11→21:39)
[2017-07-30] MEDS: HumaLOG INSULIN (NovoLOG) PER UNIT SC ×4 (07:30→21:00)
[2017-07-30] MEDS: metFORMIN (GLUCOPHAGE) 500 MG TAB PO ×2 (07:49→15:34)
[2017-07-30] MEDS: CARVedilol 12.5 MG TAB PO ×2 (09:00→21:00)
[2017-07-30] MEDS: SPIRONOLACTONE 25 MG TAB PO (10:19)
[2017-07-30] MEDS: FUROSEMIDE 40 MG TAB PO (10:19)
[2017-07-30] MEDS: ASPIRIN 81 MG ENTERIC TAB PO (10:20)
[2017-07-30] MEDS: LISINOPRIL 20 MG TAB PO (10:20)
[2017-07-30] MEDS: guaiFENesin ER 600 MG TAB PO ×2 (10:20→21:00)
[2017-07-31] MEDS: HumaLOG INSULIN (NovoLOG) PER UNIT SC ×4 (09:17→20:50)
[2017-07-31] MEDS: metFORMIN (GLUCOPHAGE) 500 MG TAB PO ×2 (09:17→16:18)
[2017-07-31] MEDS: CARVedilol 12.5 MG TAB PO ×2 (09:18→20:50)
[2017-07-31] MEDS: FUROSEMIDE 40 MG TAB PO (09:49)
[2017-07-31] MEDS: ASPIRIN 81 MG ENTERIC TAB PO (09:49)
[2017-07-31] MEDS: guaiFENesin ER 600 MG TAB PO ×2 (09:50→20:51)
[2017-07-31] MEDS: SPIRONOLACTONE 25 MG TAB PO (09:50)
[2017-07-31] MEDS: LISINOPRIL 20 MG TAB PO (09:50)
[2017-08-01] MEDS: HumaLOG INSULIN (NovoLOG) PER UNIT SC ×4 (07:46→21:00)
[2017-08-01] MEDS: metFORMIN (GLUCOPHAGE) 500 MG TAB PO ×2 (07:46→10:27)
[2017-08-01] MEDS: CARVedilol 12.5 MG TAB PO ×2 (09:46→21:00)
[2017-08-01] MEDS: SPIRONOLACTONE 25 MG TAB PO (10:11)
[2017-08-01] MEDS: FUROSEMIDE 40 MG TAB PO (10:11)
[2017-08-01] MEDS: LISINOPRIL 20 MG TAB PO (10:11)
[2017-08-01] MEDS: guaiFENesin ER 600 MG TAB PO ×2 (10:12→21:45)
[2017-08-01] MEDS: ASPIRIN 81 MG ENTERIC TAB PO (10:12)
[2017-08-02] MEDS: CARVedilol 12.5 MG TAB PO ×2 (07:29→21:00)
[2017-08-02] MEDS: metFORMIN (GLUCOPHAGE) 500 MG TAB PO ×2 (07:29→11:38)
[2017-08-02] MEDS: HumaLOG INSULIN (NovoLOG) PER UNIT SC ×4 (07:29→21:00)
[2017-08-02] MEDS: ASPIRIN 81 MG ENTERIC TAB PO (09:00)
[2017-08-02] MEDS: SPIRONOLACTONE 25 MG TAB PO (09:00)
[2017-08-02] MEDS: LISINOPRIL 20 MG TAB PO (09:00)
[2017-08-02] MEDS: guaiFENesin ER 600 MG TAB PO ×2 (09:00→21:47)
[2017-08-02] MEDS: FUROSEMIDE 40 MG TAB PO (09:00)
[2017-08-03] MEDS: HumaLOG INSULIN (NovoLOG) PER UNIT SC ×4 (07:30→20:51)
[2017-08-03] MEDS: metFORMIN (GLUCOPHAGE) 500 MG TAB PO ×2 (07:36→17:03)
[2017-08-03] MEDS: CARVedilol 12.5 MG TAB PO ×2 (07:36→20:51)
[2017-08-03] MEDS: LISINOPRIL 20 MG TAB PO (09:58)
[2017-08-03] MEDS: guaiFENesin ER 600 MG TAB PO ×2 (09:58→20:50)
[2017-08-03] MEDS: ASPIRIN 81 MG ENTERIC TAB PO (09:58)
[2017-08-03] MEDS: SPIRONOLACTONE 25 MG TAB PO (09:59)
[2017-08-03] MEDS: FUROSEMIDE 40 MG TAB PO (09:59)
[2017-08-04] MEDS: metFORMIN (GLUCOPHAGE) 500 MG TAB PO ×2 (07:47→17:42)
[2017-08-04] MEDS: HumaLOG INSULIN (NovoLOG) PER UNIT SC ×4 (07:47→21:00)
[2017-08-04] MEDS: guaiFENesin ER 600 MG TAB PO ×2 (09:47→21:25)
[2017-08-04] MEDS: SPIRONOLACTONE 25 MG TAB PO (09:47)
[2017-08-04] MEDS: FUROSEMIDE 40 MG TAB PO (09:47)
[2017-08-04] MEDS: LISINOPRIL 20 MG TAB PO (09:47)
[2017-08-04] MEDS: ASPIRIN 81 MG ENTERIC TAB PO (09:48)
[2017-08-04] MEDS: CARVedilol 12.5 MG TAB PO ×2 (09:48→21:00)
[2017-08-05] MEDS: HumaLOG INSULIN (NovoLOG) PER UNIT SC ×4 (07:30→19:56)
[2017-08-05] MEDS: CARVedilol 12.5 MG TAB PO ×2 (07:56→19:56)
[2017-08-05] MEDS: metFORMIN (GLUCOPHAGE) 500 MG TAB PO ×2 (07:57→18:00)
[2017-08-05] MEDS: FUROSEMIDE 40 MG TAB PO (08:34)
[2017-08-05] MEDS: SPIRONOLACTONE 25 MG TAB PO (09:46)
[2017-08-05] MEDS: LISINOPRIL 20 MG TAB PO (09:46)
[2017-08-05] MEDS: ASPIRIN 81 MG ENTERIC TAB PO (09:46)
[2017-08-05] MEDS: guaiFENesin ER 600 MG TAB PO ×2 (09:46→21:34)
[2017-08-06] MEDS: HumaLOG INSULIN (NovoLOG) PER UNIT SC ×4 (07:30→21:06)
[2017-08-06] MEDS: metFORMIN (GLUCOPHAGE) 500 MG TAB PO ×2 (08:00→17:33)
[2017-08-06] MEDS: FUROSEMIDE 40 MG TAB PO (09:00)
[2017-08-06] MEDS: CARVedilol 12.5 MG TAB PO ×2 (09:00→21:05)
[2017-08-06] MEDS: SPIRONOLACTONE 25 MG TAB PO (09:22)
[2017-08-06] MEDS: LISINOPRIL 20 MG TAB PO (09:23)
[2017-08-06] MEDS: guaiFENesin ER 600 MG TAB PO ×2 (09:23→21:00)
[2017-08-06] MEDS: ASPIRIN 81 MG ENTERIC TAB PO (09:23)
[2017-08-07] MEDS: HumaLOG INSULIN (NovoLOG) PER UNIT SC ×4 (07:30→22:09)
[2017-08-07] MEDS: metFORMIN (GLUCOPHAGE) 500 MG TAB PO ×2 (08:00→17:15)
[2017-08-07] MEDS: CARVedilol 12.5 MG TAB PO ×2 (09:00→22:09)
[2017-08-07] MEDS: FUROSEMIDE 40 MG TAB PO (09:00)
[2017-08-07] MEDS: ASPIRIN 81 MG ENTERIC TAB PO (10:18)
[2017-08-07] MEDS: SPIRONOLACTONE 25 MG TAB PO (10:19)
[2017-08-07] MEDS: guaiFENesin ER 600 MG TAB PO ×2 (10:28→22:08)
[2017-08-07] MEDS: LISINOPRIL 20 MG TAB PO (10:29)
[2017-08-08] MEDS: HumaLOG INSULIN (NovoLOG) PER UNIT SC ×4 (07:30→22:13)
[2017-08-08] MEDS: metFORMIN (GLUCOPHAGE) 500 MG TAB PO ×2 (08:00→18:00)
[2017-08-08] MEDS: FUROSEMIDE 40 MG TAB PO (09:00)
[2017-08-08] MEDS: CARVedilol 12.5 MG TAB PO ×2 (09:00→22:12)
[2017-08-08] MEDS: ASPIRIN 81 MG ENTERIC TAB PO (10:27)
[2017-08-08] MEDS: SPIRONOLACTONE 25 MG TAB PO (10:27)
[2017-08-08] MEDS: guaiFENesin ER 600 MG TAB PO ×2 (10:27→22:12)
[2017-08-08] MEDS: LISINOPRIL 20 MG TAB PO (10:29)
[2017-08-09] MEDS: metFORMIN (GLUCOPHAGE) 500 MG TAB PO ×2 (07:30→18:41)
[2017-08-09] MEDS: HumaLOG INSULIN (NovoLOG) PER UNIT SC ×4 (07:30→20:30)
[2017-08-09] MEDS: CARVedilol 12.5 MG TAB PO ×2 (07:31→20:30)
[2017-08-09] MEDS: FUROSEMIDE 40 MG TAB PO (09:29)
[2017-08-09] MEDS: ASPIRIN 81 MG ENTERIC TAB PO (09:29)
[2017-08-09] MEDS: guaiFENesin ER 600 MG TAB PO ×2 (09:29→21:43)
[2017-08-09] MEDS: SPIRONOLACTONE 25 MG TAB PO (09:29)
[2017-08-09] MEDS: LISINOPRIL 20 MG TAB PO (09:29)
[2017-08-10] MEDS: HumaLOG INSULIN (NovoLOG) PER UNIT SC ×4 (07:30→22:10)
[2017-08-10] MEDS: metFORMIN (GLUCOPHAGE) 500 MG TAB PO ×2 (07:41→17:29)
[2017-08-10] MEDS: CARVedilol 12.5 MG TAB PO ×2 (07:42→22:10)
[2017-08-10] MEDS: FUROSEMIDE 40 MG TAB PO (09:00)
[2017-08-10] MEDS: LISINOPRIL 20 MG TAB PO (10:00)
[2017-08-10] MEDS: SPIRONOLACTONE 25 MG TAB PO (10:00)
[2017-08-10] MEDS: guaiFENesin ER 600 MG TAB PO ×2 (10:00→21:35)
[2017-08-10] MEDS: ASPIRIN 81 MG ENTERIC TAB PO (10:00)
[2017-08-11] MEDS: HumaLOG INSULIN (NovoLOG) PER UNIT SC ×4 (07:30→21:47)
[2017-08-11] MEDS: metFORMIN (GLUCOPHAGE) 500 MG TAB PO ×2 (07:37→16:32)
[2017-08-11] MEDS: CARVedilol 12.5 MG TAB PO ×2 (07:37→21:47)
[2017-08-11] MEDS: FUROSEMIDE 40 MG TAB PO (09:00)
[2017-08-11] MEDS: guaiFENesin ER 600 MG TAB PO ×2 (09:55→21:47)
[2017-08-11] MEDS: SPIRONOLACTONE 25 MG TAB PO (09:55)
[2017-08-11] MEDS: ASPIRIN 81 MG ENTERIC TAB PO (09:55)
[2017-08-11] MEDS: LISINOPRIL 20 MG TAB PO (09:56)
[2017-08-12] MEDS: metFORMIN (GLUCOPHAGE) 500 MG TAB PO ×2 (06:57→16:19)
[2017-08-12] MEDS: HumaLOG INSULIN (NovoLOG) PER UNIT SC ×4 (06:57→22:09)
[2017-08-12] MEDS: CARVedilol 12.5 MG TAB PO ×2 (06:58→22:09)
[2017-08-12] MEDS: FUROSEMIDE 40 MG TAB PO (09:00)
[2017-08-12] MEDS: guaiFENesin ER 600 MG TAB PO ×2 (09:40→21:43)
[2017-08-12] MEDS: SPIRONOLACTONE 25 MG TAB PO (09:40)
[2017-08-12] MEDS: ASPIRIN 81 MG ENTERIC TAB PO (09:40)
[2017-08-12] MEDS: LISINOPRIL 20 MG TAB PO (09:41)
[2017-08-13] MEDS: metFORMIN (GLUCOPHAGE) 500 MG TAB PO ×2 (07:01→17:21)
[2017-08-13] MEDS: HumaLOG INSULIN (NovoLOG) PER UNIT SC ×4 (07:01→19:02)
[2017-08-13] MEDS: FUROSEMIDE 40 MG TAB PO (09:00)
[2017-08-13] MEDS: CARVedilol 12.5 MG TAB PO ×2 (09:00→19:02)
[2017-08-13] MEDS: LISINOPRIL 20 MG TAB PO (09:52)
[2017-08-13] MEDS: ASPIRIN 81 MG ENTERIC TAB PO (09:52)
[2017-08-13] MEDS: guaiFENesin ER 600 MG TAB PO ×2 (09:52→22:05)
[2017-08-13] MEDS: SPIRONOLACTONE 25 MG TAB PO (09:52)
[2017-08-14] MEDS: HumaLOG INSULIN (NovoLOG) PER UNIT SC ×4 (07:36→21:00)
[2017-08-14] MEDS: CARVedilol 12.5 MG TAB PO ×2 (08:04→21:00)
[2017-08-14] MEDS: metFORMIN (GLUCOPHAGE) 500 MG TAB PO ×2 (08:04→17:04)
[2017-08-14] MEDS: SPIRONOLACTONE 25 MG TAB PO (09:57)
[2017-08-14] MEDS: guaiFENesin ER 600 MG TAB PO ×2 (09:57→21:36)
[2017-08-14] MEDS: ASPIRIN 81 MG ENTERIC TAB PO (09:57)
[2017-08-14] MEDS: FUROSEMIDE 40 MG TAB PO (09:58)
[2017-08-14] MEDS: LISINOPRIL 20 MG TAB PO (10:00)
[2017-08-15] MEDS: HumaLOG INSULIN (NovoLOG) PER UNIT SC ×4 (07:30→21:00)
[2017-08-15] MEDS: metFORMIN (GLUCOPHAGE) 500 MG TAB PO ×2 (07:30→18:00)
[2017-08-15] MEDS: ASPIRIN 81 MG ENTERIC TAB PO (09:44)
[2017-08-15] MEDS: CARVedilol 12.5 MG TAB PO ×2 (09:47→21:00)
[2017-08-15] MEDS: SPIRONOLACTONE 25 MG TAB PO (09:47)
[2017-08-15] MEDS: LISINOPRIL 20 MG TAB PO (09:47)
[2017-08-15] MEDS: guaiFENesin ER 600 MG TAB PO ×2 (09:47→21:50)
[2017-08-15] MEDS: FUROSEMIDE 40 MG TAB PO (09:48)
[2017-08-16] MEDS: HumaLOG INSULIN (NovoLOG) PER UNIT SC ×4 (07:30→21:00)
[2017-08-16] MEDS: CARVedilol 12.5 MG TAB PO ×2 (07:37→21:00)
[2017-08-16] MEDS: metFORMIN (GLUCOPHAGE) 500 MG TAB PO ×2 (07:37→16:33)
[2017-08-16] MEDS: FUROSEMIDE 40 MG TAB PO (08:47)
[2017-08-16] MEDS: LISINOPRIL 20 MG TAB PO (09:33)
[2017-08-16] MEDS: ASPIRIN 81 MG ENTERIC TAB PO (09:34)
[2017-08-16] MEDS: SPIRONOLACTONE 25 MG TAB PO (09:34)
[2017-08-16] MEDS: guaiFENesin ER 600 MG TAB PO ×2 (09:34→22:06)
[2017-08-17] MEDS: HumaLOG INSULIN (NovoLOG) PER UNIT SC ×4 (07:33→21:00)
[2017-08-17] MEDS: metFORMIN (GLUCOPHAGE) 500 MG TAB PO ×2 (07:34→17:27)
[2017-08-17] MEDS: SPIRONOLACTONE 25 MG TAB PO (09:52)
[2017-08-17] MEDS: guaiFENesin ER 600 MG TAB PO ×2 (09:52→22:11)
[2017-08-17] MEDS: ASPIRIN 81 MG ENTERIC TAB PO (09:52)
[2017-08-17] MEDS: CARVedilol 12.5 MG TAB PO ×2 (09:52→21:00)
[2017-08-17] MEDS: FUROSEMIDE 40 MG TAB PO (09:52)
[2017-08-17] MEDS: LISINOPRIL 20 MG TAB PO (09:55)
[2017-08-18] MEDS: HumaLOG INSULIN (NovoLOG) PER UNIT SC ×4 (07:30→21:00)
[2017-08-18] MEDS: metFORMIN (GLUCOPHAGE) 500 MG TAB PO ×2 (07:40→16:40)
[2017-08-18] MEDS: CARVedilol 12.5 MG TAB PO ×2 (07:41→21:00)
[2017-08-18] MEDS: FUROSEMIDE 40 MG TAB PO (09:00)
[2017-08-18] MEDS: ASPIRIN 81 MG ENTERIC TAB PO (09:37)
[2017-08-18] MEDS: guaiFENesin ER 600 MG TAB PO ×2 (09:37→21:52)
[2017-08-18] MEDS: LISINOPRIL 20 MG TAB PO (09:38)
[2017-08-18] MEDS: SPIRONOLACTONE 25 MG TAB PO (09:38)
[2017-08-19] MEDS: HumaLOG INSULIN (NovoLOG) PER UNIT SC ×4 (07:09→21:00)
[2017-08-19] MEDS: metFORMIN (GLUCOPHAGE) 500 MG TAB PO ×2 (07:10→17:00)
[2017-08-19] MEDS: CARVedilol 12.5 MG TAB PO ×2 (07:10→21:00)
[2017-08-19] MEDS: FUROSEMIDE 40 MG TAB PO (09:00)
[2017-08-19] MEDS: LISINOPRIL 20 MG TAB PO (09:46)
[2017-08-19] MEDS: SPIRONOLACTONE 25 MG TAB PO (09:46)
[2017-08-19] MEDS: ASPIRIN 81 MG ENTERIC TAB PO (09:46)
[2017-08-19] MEDS: guaiFENesin ER 600 MG TAB PO ×2 (09:46→21:45)
[2017-08-20] MEDS: metFORMIN (GLUCOPHAGE) 500 MG TAB PO ×2 (08:08→19:00)
[2017-08-20] MEDS: HumaLOG INSULIN (NovoLOG) PER UNIT SC ×4 (08:08→20:19)
[2017-08-20] MEDS: CARVedilol 12.5 MG TAB PO ×2 (08:09→20:19)
[2017-08-20] MEDS: FUROSEMIDE 40 MG TAB PO (09:19)
[2017-08-20] MEDS: SPIRONOLACTONE 25 MG TAB PO (10:20)
[2017-08-20] MEDS: ASPIRIN 81 MG ENTERIC TAB PO (10:20)
[2017-08-20] MEDS: LISINOPRIL 20 MG TAB PO (10:20)
[2017-08-20] MEDS: guaiFENesin ER 600 MG TAB PO ×2 (10:20→21:32)
[2017-08-21] MEDS: HumaLOG INSULIN (NovoLOG) PER UNIT SC ×4 (07:21→20:54)
[2017-08-21] MEDS: metFORMIN (GLUCOPHAGE) 500 MG TAB PO ×2 (07:21→16:39)
[2017-08-21] MEDS: CARVedilol 12.5 MG TAB PO ×2 (07:22→20:54)
[2017-08-21] MEDS: FUROSEMIDE 40 MG TAB PO (09:00)
[2017-08-21] MEDS: guaiFENesin ER 600 MG TAB PO ×2 (09:34→21:27)
[2017-08-21] MEDS: SPIRONOLACTONE 25 MG TAB PO (09:34)
[2017-08-21] MEDS: ASPIRIN 81 MG ENTERIC TAB PO (09:34)
[2017-08-21] MEDS: LISINOPRIL 20 MG TAB PO (09:35)
[2017-08-22] MEDS: metFORMIN (GLUCOPHAGE) 500 MG TAB PO ×2 (07:24→17:24)
[2017-08-22] MEDS: CARVedilol 12.5 MG TAB PO ×2 (07:24→21:00)
[2017-08-22] MEDS: HumaLOG INSULIN (NovoLOG) PER UNIT SC ×4 (07:24→21:00)
[2017-08-22] MEDS: FUROSEMIDE 40 MG TAB PO (09:00)
[2017-08-22] MEDS: LISINOPRIL 20 MG TAB PO (09:37)
[2017-08-22] MEDS: guaiFENesin ER 600 MG TAB PO ×2 (09:37→21:35)
[2017-08-22] MEDS: ASPIRIN 81 MG ENTERIC TAB PO (09:37)
[2017-08-22] MEDS: SPIRONOLACTONE 25 MG TAB PO (09:37)
[2017-08-23] MEDS: HumaLOG INSULIN (NovoLOG) PER UNIT SC ×4 (07:30→20:49)
[2017-08-23] MEDS: metFORMIN (GLUCOPHAGE) 500 MG TAB PO ×2 (08:00→16:25)
[2017-08-23] MEDS: CARVedilol 12.5 MG TAB PO ×2 (08:17→20:49)
[2017-08-23] MEDS: FUROSEMIDE 40 MG TAB PO (09:00)
[2017-08-23] MEDS: guaiFENesin ER 600 MG TAB PO ×2 (09:36→21:31)
[2017-08-23] MEDS: ASPIRIN 81 MG ENTERIC TAB PO (09:36)
[2017-08-23] MEDS: SPIRONOLACTONE 25 MG TAB PO (09:36)
[2017-08-23] MEDS: LISINOPRIL 20 MG TAB PO (09:36)
[2017-08-24] MEDS: metFORMIN (GLUCOPHAGE) 500 MG TAB PO ×2 (07:20→16:25)
[2017-08-24] MEDS: CARVedilol 12.5 MG TAB PO ×2 (07:20→21:46)
[2017-08-24] MEDS: HumaLOG INSULIN (NovoLOG) PER UNIT SC ×4 (07:20→21:46)
[2017-08-24] MEDS: FUROSEMIDE 40 MG TAB PO (07:21)
[2017-08-24] MEDS: guaiFENesin ER 600 MG TAB PO ×2 (09:45→21:45)
[2017-08-24] MEDS: LISINOPRIL 20 MG TAB PO (09:45)
[2017-08-24] MEDS: SPIRONOLACTONE 25 MG TAB PO (09:45)
[2017-08-24] MEDS: ASPIRIN 81 MG ENTERIC TAB PO (09:45)
[2017-08-25] MEDS: HumaLOG INSULIN (NovoLOG) PER UNIT SC ×4 (07:06→21:40)
[2017-08-25] MEDS: metFORMIN (GLUCOPHAGE) 500 MG TAB PO ×2 (07:06→17:34)
[2017-08-25] MEDS: CARVedilol 12.5 MG TAB PO ×2 (07:07→21:40)
[2017-08-25] MEDS: FUROSEMIDE 40 MG TAB PO (07:07)
[2017-08-25] MEDS: SPIRONOLACTONE 25 MG TAB PO (09:56)
[2017-08-25] MEDS: ASPIRIN 81 MG ENTERIC TAB PO (09:56)
[2017-08-25] MEDS: LISINOPRIL 20 MG TAB PO (09:56)
[2017-08-25] MEDS: guaiFENesin ER 600 MG TAB PO ×2 (09:56→21:55)
[2017-08-26] MEDS: HumaLOG INSULIN (NovoLOG) PER UNIT SC ×4 (07:09→21:38)
[2017-08-26] MEDS: metFORMIN (GLUCOPHAGE) 500 MG TAB PO ×2 (07:10→18:00)
[2017-08-26] MEDS: CARVedilol 12.5 MG TAB PO ×2 (07:11→21:37)
[2017-08-26] MEDS: FUROSEMIDE 40 MG TAB PO (07:12)
[2017-08-26] MEDS: SPIRONOLACTONE 25 MG TAB PO ×2 (08:42→09:00)
[2017-08-26] MEDS: LISINOPRIL 20 MG TAB PO ×2 (08:43→09:00)
[2017-08-26] MEDS: ASPIRIN 81 MG ENTERIC TAB PO (09:43)
[2017-08-26] MEDS: guaiFENesin ER 600 MG TAB PO ×2 (09:43→21:37)
[2017-08-27] MEDS: HumaLOG INSULIN (NovoLOG) PER UNIT SC ×4 (07:30→21:00)
[2017-08-27] MEDS: metFORMIN (GLUCOPHAGE) 500 MG TAB PO ×2 (08:00→17:42)
[2017-08-27] MEDS: CARVedilol 12.5 MG TAB PO ×2 (09:00→21:00)
[2017-08-27] MEDS: FUROSEMIDE 40 MG TAB PO (09:00)
[2017-08-27] MEDS: ASPIRIN 81 MG ENTERIC TAB PO (10:45)
[2017-08-27] MEDS: LISINOPRIL 20 MG TAB PO (10:45)
[2017-08-27] MEDS: SPIRONOLACTONE 25 MG TAB PO (10:45)
[2017-08-27] MEDS: guaiFENesin ER 600 MG TAB PO ×2 (10:45→21:38)
[2017-08-27] MEDS: MULTIVITAMINS/MINERALS THERAP 1 TAB PO (13:21)
[2017-08-27] MEDS: ADACEL/BOOSTRIX VACCINE (DIPHTH/PERTUSS/ACELL/TETANUS)0.5ML SYR (90715) IM (21:40)
[2017-08-28] MEDS: HumaLOG INSULIN (NovoLOG) PER UNIT SC ×4 (07:45→21:00)
[2017-08-28] MEDS: metFORMIN (GLUCOPHAGE) 500 MG TAB PO ×2 (07:45→17:14)
[2017-08-28] MEDS: CARVedilol 12.5 MG TAB PO ×2 (08:54→21:00)
[2017-08-28] MEDS: MULTIVITAMINS/MINERALS THERAP 1 TAB PO (09:47)
[2017-08-28] MEDS: SPIRONOLACTONE 25 MG TAB PO (09:47)
[2017-08-28] MEDS: guaiFENesin ER 600 MG TAB PO ×2 (09:48→21:46)
[2017-08-28] MEDS: ASPIRIN 81 MG ENTERIC TAB PO (09:48)
[2017-08-28] MEDS: LISINOPRIL 20 MG TAB PO (09:50)
[2017-08-28] MEDS: FUROSEMIDE 40 MG TAB PO (09:50)
[2017-08-28] MEDS ORDERED: DEXTROSE 50% 50 ML SYRINGE IV (10:45)
[2017-08-28] MEDS ORDERED: GLUCOSE 4 GM CHEW TABLET PO (10:45)
[2017-08-29] MEDS: metFORMIN (GLUCOPHAGE) 500 MG TAB PO ×2 (07:54→17:21)
[2017-08-29] MEDS: HumaLOG INSULIN (NovoLOG) PER UNIT SC ×4 (07:54→21:00)
[2017-08-29] MEDS: FUROSEMIDE 40 MG TAB PO (09:43)
[2017-08-29] MEDS: CARVedilol 12.5 MG TAB PO ×2 (09:44→21:00)
[2017-08-29] MEDS: guaiFENesin ER 600 MG TAB PO ×2 (09:53→21:44)
[2017-08-29] MEDS: LISINOPRIL 20 MG TAB PO (09:53)
[2017-08-29] MEDS: MULTIVITAMINS/MINERALS THERAP 1 TAB PO (09:53)
[2017-08-29] MEDS: SPIRONOLACTONE 25 MG TAB PO (09:53)
[2017-08-29] MEDS: ASPIRIN 81 MG ENTERIC TAB PO (09:53)
[2017-08-29] MEDS ORDERED: GLUCAGON FOR INJ 1 MG VIAL (J1610) SC (14:00)
[2017-08-29] MEDS ORDERED: BISACODYL 5 MG TAB PO (14:00)
[2017-08-29] MEDS ORDERED: ACETAMINOPHEN TAB 650MG DOSE (2X325MG) PO (14:00)
[2017-08-29] MEDS ORDERED: ANALGESIC BALM CRM 120 GM TOP (14:00)
[2017-08-29] MEDS ORDERED: METOCLOPRAMIDE 10 MG TAB PO (14:00)
[2017-08-29] MEDS ORDERED: ONDANSETRON 4 MG TAB (S0181) PO (14:00)
[2017-08-29] MEDS ORDERED: SODIUM CHLORIDE NASAL 0.65% SPRAY BTL (OCEAN) (14:00)
[2017-08-30] MEDS: HumaLOG INSULIN (NovoLOG) PER UNIT SC ×4 (09:11→21:00)
[2017-08-30] MEDS: metFORMIN (GLUCOPHAGE) 500 MG TAB PO ×2 (09:12→17:38)
[2017-08-30] MEDS: FUROSEMIDE 40 MG TAB PO (10:02)
[2017-08-30] MEDS: CARVedilol 12.5 MG TAB PO ×2 (10:02→21:00)
[2017-08-30] MEDS: ASPIRIN 81 MG ENTERIC TAB PO (10:18)
[2017-08-30] MEDS: LISINOPRIL 20 MG TAB PO (10:19)
[2017-08-30] MEDS: MULTIVITAMINS/MINERALS THERAP 1 TAB PO (10:19)
[2017-08-30] MEDS: guaiFENesin ER 600 MG TAB PO ×2 (10:19→21:00)
[2017-08-30] MEDS: SPIRONOLACTONE 25 MG TAB PO (10:19)
[2017-08-31] MEDS: HumaLOG INSULIN (NovoLOG) PER UNIT SC ×4 (07:30→21:00)
[2017-08-31] MEDS: metFORMIN (GLUCOPHAGE) 500 MG TAB PO ×2 (07:42→16:30)
[2017-08-31] MEDS: CARVedilol 12.5 MG TAB PO ×2 (07:42→21:00)
[2017-08-31] MEDS: FUROSEMIDE 40 MG TAB PO (09:00)
[2017-08-31] MEDS: SPIRONOLACTONE 25 MG TAB PO (10:20)
[2017-08-31] MEDS: MULTIVITAMINS/MINERALS THERAP 1 TAB PO (10:20)
[2017-08-31] MEDS: ASPIRIN 81 MG ENTERIC TAB PO (10:20)
[2017-08-31] MEDS: LISINOPRIL 20 MG TAB PO (10:20)
[2017-08-31] MEDS: guaiFENesin ER 600 MG TAB PO ×2 (10:20→22:15)
[2017-09-01] MEDS: metFORMIN (GLUCOPHAGE) 500 MG TAB PO ×2 (07:28→17:20)
[2017-09-01] MEDS: HumaLOG INSULIN (NovoLOG) PER UNIT SC ×4 (07:28→19:28)
[2017-09-01] MEDS: CARVedilol 12.5 MG TAB PO ×2 (07:29→19:28)
[2017-09-01] MEDS: FUROSEMIDE 40 MG TAB PO (09:00)
[2017-09-01] MEDS: SPIRONOLACTONE 25 MG TAB PO (09:44)
[2017-09-01] MEDS: MULTIVITAMINS/MINERALS THERAP 1 TAB PO (09:44)
[2017-09-01] MEDS: guaiFENesin ER 600 MG TAB PO ×2 (09:44→22:01)
[2017-09-01] MEDS: ASPIRIN 81 MG ENTERIC TAB PO (09:44)
[2017-09-01] MEDS: LISINOPRIL 20 MG TAB PO (09:44)
[2017-09-02] MEDS: HumaLOG INSULIN (NovoLOG) PER UNIT SC ×4 (07:30→21:00)
[2017-09-02] MEDS: metFORMIN (GLUCOPHAGE) 500 MG TAB PO ×2 (07:43→10:47)
[2017-09-02] MEDS: CARVedilol 12.5 MG TAB PO ×2 (07:43→21:00)
[2017-09-02] MEDS: FUROSEMIDE 40 MG TAB PO (09:00)
[2017-09-02] MEDS: MULTIVITAMINS/MINERALS THERAP 1 TAB PO (09:48)
[2017-09-02] MEDS: guaiFENesin ER 600 MG TAB PO ×2 (09:49→21:32)
[2017-09-02] MEDS: LISINOPRIL 20 MG TAB PO (09:49)
[2017-09-02] MEDS: ASPIRIN 81 MG ENTERIC TAB PO (09:50)
[2017-09-02] MEDS: SPIRONOLACTONE 25 MG TAB PO (09:50)
[2017-09-03] MEDS: HumaLOG INSULIN (NovoLOG) PER UNIT SC ×4 (07:30→21:00)
[2017-09-03] MEDS: metFORMIN (GLUCOPHAGE) 500 MG TAB PO ×2 (08:00→16:12)
[2017-09-03] MEDS: CARVedilol 12.5 MG TAB PO ×2 (08:05→21:00)
[2017-09-03] MEDS: FUROSEMIDE 40 MG TAB PO (08:37)
[2017-09-03] MEDS: ASPIRIN 81 MG ENTERIC TAB PO (10:45)
[2017-09-03] MEDS: guaiFENesin ER 600 MG TAB PO ×2 (10:45→21:40)
[2017-09-03] MEDS: SPIRONOLACTONE 25 MG TAB PO (10:45)
[2017-09-03] MEDS: MULTIVITAMINS/MINERALS THERAP 1 TAB PO (10:45)
[2017-09-03] MEDS: LISINOPRIL 20 MG TAB PO (10:45)
[2017-09-04] MEDS: HumaLOG INSULIN (NovoLOG) PER UNIT SC ×4 (07:30→21:37)
[2017-09-04] MEDS: metFORMIN (GLUCOPHAGE) 500 MG TAB PO ×2 (08:00→18:00)
[2017-09-04] MEDS: CARVedilol 12.5 MG TAB PO ×2 (08:47→21:36)
[2017-09-04] MEDS: FUROSEMIDE 40 MG TAB PO (09:00)
[2017-09-04] MEDS: guaiFENesin ER 600 MG TAB PO ×2 (10:51→21:35)
[2017-09-04] MEDS: LISINOPRIL 20 MG TAB PO (10:51)
[2017-09-04] MEDS: SPIRONOLACTONE 25 MG TAB PO (10:51)
[2017-09-04] MEDS: ASPIRIN 81 MG ENTERIC TAB PO (10:51)
[2017-09-04] MEDS: MULTIVITAMINS/MINERALS THERAP 1 TAB PO (10:51)
[2017-09-05] MEDS: HumaLOG INSULIN (NovoLOG) PER UNIT SC ×4 (07:30→21:00)
[2017-09-05] MEDS: metFORMIN (GLUCOPHAGE) 500 MG TAB PO ×2 (08:00→18:00)
[2017-09-05] MEDS: CARVedilol 12.5 MG TAB PO ×2 (08:18→21:00)
[2017-09-05] MEDS: FUROSEMIDE 40 MG TAB PO (09:00)
[2017-09-05] MEDS: SPIRONOLACTONE 25 MG TAB PO (10:49)
[2017-09-05] MEDS: ASPIRIN 81 MG ENTERIC TAB PO (10:49)
[2017-09-05] MEDS: guaiFENesin ER 600 MG TAB PO ×2 (10:49→21:37)
[2017-09-05] MEDS: LISINOPRIL 20 MG TAB PO (10:49)
[2017-09-05] MEDS: MULTIVITAMINS/MINERALS THERAP 1 TAB PO (10:49)
[2017-09-06] MEDS: metFORMIN (GLUCOPHAGE) 500 MG TAB PO ×2 (07:31→17:38)
[2017-09-06] MEDS: FUROSEMIDE 40 MG TAB PO (07:32)
[2017-09-06] MEDS: HumaLOG INSULIN (NovoLOG) PER UNIT SC ×4 (07:32→21:34)
[2017-09-06] MEDS: CARVedilol 12.5 MG TAB PO ×2 (07:32→21:34)
[2017-09-06] MEDS: SPIRONOLACTONE 25 MG TAB PO (10:00)
[2017-09-06] MEDS: ASPIRIN 81 MG ENTERIC TAB PO (10:00)
[2017-09-06] MEDS: guaiFENesin ER 600 MG TAB PO ×2 (10:00→21:34)
[2017-09-06] MEDS: MULTIVITAMINS/MINERALS THERAP 1 TAB PO (10:00)
[2017-09-06] MEDS: LISINOPRIL 20 MG TAB PO (10:02)
[2017-09-07] MEDS: HumaLOG INSULIN (NovoLOG) PER UNIT SC ×4 (07:30→21:00)
[2017-09-07] MEDS: CARVedilol 12.5 MG TAB PO ×2 (07:48→21:00)
[2017-09-07] MEDS: metFORMIN (GLUCOPHAGE) 500 MG TAB PO ×2 (07:48→10:22)
[2017-09-07] MEDS: ASPIRIN 81 MG ENTERIC TAB PO (09:00)
[2017-09-07] MEDS: guaiFENesin ER 600 MG TAB PO ×2 (09:00→21:09)
[2017-09-07] MEDS: FUROSEMIDE 40 MG TAB PO (09:00)
[2017-09-07] MEDS: MULTIVITAMINS/MINERALS THERAP 1 TAB PO (09:00)
[2017-09-07] MEDS: SPIRONOLACTONE 25 MG TAB PO (09:00)
[2017-09-07] MEDS: LISINOPRIL 20 MG TAB PO (09:00)
[2017-09-08] MEDS: HumaLOG INSULIN (NovoLOG) PER UNIT SC ×6 (06:52→10:52)
[2017-09-08] MEDS: FUROSEMIDE 40 MG TAB PO ×2 (06:52→10:51)
[2017-09-08] MEDS: CARVedilol 12.5 MG TAB PO ×3 (06:52→10:51)
[2017-09-08] MEDS: metFORMIN (GLUCOPHAGE) 500 MG TAB PO ×3 (06:52→10:51)
[2017-09-08] MEDS: SPIRONOLACTONE 25 MG TAB PO (09:30)
[2017-09-08] MEDS: MULTIVITAMINS/MINERALS THERAP 1 TAB PO (09:30)
[2017-09-08] MEDS: guaiFENesin ER 600 MG TAB PO ×2 (09:30→21:11)
[2017-09-08] MEDS: ASPIRIN 81 MG ENTERIC TAB PO (09:30)
[2017-09-08] MEDS: LISINOPRIL 20 MG TAB PO (09:30)
[2017-09-09] MEDS: CARVedilol 12.5 MG TAB PO (07:12)
[2017-09-09] MEDS: HumaLOG INSULIN (NovoLOG) PER UNIT SC ×3 (07:12)
[2017-09-09] MEDS: metFORMIN (GLUCOPHAGE) 500 MG TAB PO (07:12)
[2017-09-09] MEDS: LISINOPRIL 20 MG TAB PO (08:59)
[2017-09-09] MEDS: ASPIRIN 81 MG ENTERIC TAB PO (08:59)
[2017-09-09] MEDS: MULTIVITAMINS/MINERALS THERAP 1 TAB PO (08:59)
[2017-09-09] MEDS: guaiFENesin ER 600 MG TAB PO ×2 (08:59→21:31)
[2017-09-09] MEDS: SPIRONOLACTONE 25 MG TAB PO (08:59)
[2017-09-10] MEDS: metFORMIN (GLUCOPHAGE) 500 MG TAB PO ×2 (08:46→18:00)
[2017-09-10] MEDS: HumaLOG INSULIN (NovoLOG) PER UNIT SC ×4 (08:46→21:00)
[2017-09-10] MEDS: LISINOPRIL 20 MG TAB PO (08:51)
[2017-09-10] MEDS: SPIRONOLACTONE 25 MG TAB PO (08:51)
[2017-09-10] MEDS: ASPIRIN 81 MG ENTERIC TAB PO (08:51)
[2017-09-10] MEDS: guaiFENesin ER 600 MG TAB PO ×2 (08:51→21:29)
[2017-09-10] MEDS: MULTIVITAMINS/MINERALS THERAP 1 TAB PO (08:52)
[2017-09-10] MEDS: FUROSEMIDE 40 MG TAB PO (08:55)
[2017-09-10] MEDS: CARVedilol 12.5 MG TAB PO ×2 (08:55→21:00)
[2017-09-11] MEDS: HumaLOG INSULIN (NovoLOG) PER UNIT SC ×4 (07:30→20:25)
[2017-09-11] MEDS: metFORMIN (GLUCOPHAGE) 500 MG TAB PO ×2 (07:40→16:31)
[2017-09-11] MEDS: FUROSEMIDE 40 MG TAB PO (09:00)
[2017-09-11] MEDS: CARVedilol 12.5 MG TAB PO ×2 (09:00→20:25)
[2017-09-11] MEDS: guaiFENesin ER 600 MG TAB PO ×2 (09:33→21:20)
[2017-09-11] MEDS: SPIRONOLACTONE 25 MG TAB PO (09:34)
[2017-09-11] MEDS: MULTIVITAMINS/MINERALS THERAP 1 TAB PO (09:34)
[2017-09-11] MEDS: ASPIRIN 81 MG ENTERIC TAB PO (09:34)
[2017-09-11] MEDS: LISINOPRIL 20 MG TAB PO (09:35)
[2017-09-12] MEDS: HumaLOG INSULIN (NovoLOG) PER UNIT SC ×4 (07:30→21:00)
[2017-09-12] MEDS: metFORMIN (GLUCOPHAGE) 500 MG TAB PO ×2 (08:00→11:00)
[2017-09-12] MEDS: CARVedilol 12.5 MG TAB PO ×2 (08:29→21:00)
[2017-09-12] MEDS: FUROSEMIDE 40 MG TAB PO (09:00)
[2017-09-12] MEDS: guaiFENesin ER 600 MG TAB PO ×2 (09:42→21:22)
[2017-09-12] MEDS: MULTIVITAMINS/MINERALS THERAP 1 TAB PO (09:42)
[2017-09-12] MEDS: SPIRONOLACTONE 25 MG TAB PO (09:42)
[2017-09-12] MEDS: ASPIRIN 81 MG ENTERIC TAB PO (09:42)
[2017-09-12] MEDS: LISINOPRIL 20 MG TAB PO (09:44)
[2017-09-13] MEDS: HumaLOG INSULIN (NovoLOG) PER UNIT SC ×4 (07:30→08:03)
[2017-09-13] MEDS: metFORMIN (GLUCOPHAGE) 500 MG TAB PO ×2 (08:00→08:03)
[2017-09-13] MEDS: CARVedilol 12.5 MG TAB PO ×2 (08:02→08:03)
[2017-09-13] MEDS: FUROSEMIDE 40 MG TAB PO (08:02)
[2017-09-13] MEDS: ASPIRIN 81 MG ENTERIC TAB PO (09:15)
[2017-09-13] MEDS: LISINOPRIL 20 MG TAB PO (09:15)
[2017-09-13] MEDS: guaiFENesin ER 600 MG TAB PO ×2 (09:15→21:09)
[2017-09-13] MEDS: MULTIVITAMINS/MINERALS THERAP 1 TAB PO (09:15)
[2017-09-13] MEDS: SPIRONOLACTONE 25 MG TAB PO (09:15)
[2017-09-14] MEDS: HumaLOG INSULIN (NovoLOG) PER UNIT SC ×4 (07:30→20:58)
[2017-09-14] MEDS: metFORMIN (GLUCOPHAGE) 500 MG TAB PO ×2 (08:00→17:12)
[2017-09-14] MEDS: CARVedilol 12.5 MG TAB PO ×2 (09:00→20:58)
[2017-09-14] MEDS: FUROSEMIDE 40 MG TAB PO (09:00)
[2017-09-14] MEDS: guaiFENesin ER 600 MG TAB PO ×2 (10:15→21:47)
[2017-09-14] MEDS: LISINOPRIL 20 MG TAB PO (10:15)
[2017-09-14] MEDS: MULTIVITAMINS/MINERALS THERAP 1 TAB PO (10:15)
[2017-09-14] MEDS: SPIRONOLACTONE 25 MG TAB PO (10:15)
[2017-09-14] MEDS: ASPIRIN 81 MG ENTERIC TAB PO (10:15)
[2017-09-15] MEDS: HumaLOG INSULIN (NovoLOG) PER UNIT SC ×5 (07:30→21:33)
[2017-09-15] MEDS: metFORMIN (GLUCOPHAGE) 500 MG TAB PO ×3 (08:00→20:14)
[2017-09-15] MEDS: CARVedilol 12.5 MG TAB PO ×2 (08:14→21:33)
[2017-09-15] MEDS: FUROSEMIDE 40 MG TAB PO (08:14)
[2017-09-15] MEDS: SPIRONOLACTONE 25 MG TAB PO (09:39)
[2017-09-15] MEDS: ASPIRIN 81 MG ENTERIC TAB PO (09:39)
[2017-09-15] MEDS: guaiFENesin ER 600 MG TAB PO ×2 (09:39→21:40)
[2017-09-15] MEDS: LISINOPRIL 20 MG TAB PO (09:39)
[2017-09-15] MEDS: MULTIVITAMINS/MINERALS THERAP 1 TAB PO (09:40)
[2017-09-16] MEDS: metFORMIN (GLUCOPHAGE) 500 MG TAB PO (07:36)
[2017-09-16] MEDS: HumaLOG INSULIN (NovoLOG) PER UNIT SC ×3 (07:36→21:00)
[2017-09-16] MEDS: CARVedilol 12.5 MG TAB PO ×2 (09:00→21:00)
[2017-09-16] MEDS: FUROSEMIDE 40 MG TAB PO (09:00)
[2017-09-16] MEDS: ASPIRIN 81 MG ENTERIC TAB PO (09:46)
[2017-09-16] MEDS: guaiFENesin ER 600 MG TAB PO ×2 (09:46→21:05)
[2017-09-16] MEDS: LISINOPRIL 20 MG TAB PO (09:46)
[2017-09-16] MEDS: MULTIVITAMINS/MINERALS THERAP 1 TAB PO (09:46)
[2017-09-16] MEDS: SPIRONOLACTONE 25 MG TAB PO (09:46)
[2017-09-17] MEDS: metFORMIN (GLUCOPHAGE) 500 MG TAB PO ×2 (07:25→07:27)
[2017-09-17] MEDS: HumaLOG INSULIN (NovoLOG) PER UNIT SC ×4 (07:25→07:27)
[2017-09-17] MEDS: FUROSEMIDE 40 MG TAB PO (07:26)
[2017-09-17] MEDS: CARVedilol 12.5 MG TAB PO ×2 (07:26→07:27)
[2017-09-17] MEDS: LISINOPRIL 20 MG TAB PO (09:34)
[2017-09-17] MEDS: guaiFENesin ER 600 MG TAB PO ×2 (09:34→21:33)
[2017-09-17] MEDS: SPIRONOLACTONE 25 MG TAB PO (09:34)
[2017-09-17] MEDS: ASPIRIN 81 MG ENTERIC TAB PO (09:34)
[2017-09-17] MEDS: MULTIVITAMINS/MINERALS THERAP 1 TAB PO (09:34)
[2017-09-18] MEDS: metFORMIN (GLUCOPHAGE) 500 MG TAB PO ×2 (07:05→07:06)
[2017-09-18] MEDS: CARVedilol 12.5 MG TAB PO ×2 (07:05→07:06)
[2017-09-18] MEDS: HumaLOG INSULIN (NovoLOG) PER UNIT SC ×5 (07:05→07:06)
[2017-09-18] MEDS: FUROSEMIDE 40 MG TAB PO ×2 (07:05→07:06)
[2017-09-18] MEDS: SPIRONOLACTONE 25 MG TAB PO (08:40)
[2017-09-18] MEDS: MULTIVITAMINS/MINERALS THERAP 1 TAB PO (08:40)
[2017-09-18] MEDS: LISINOPRIL 20 MG TAB PO (08:40)
[2017-09-18] MEDS: guaiFENesin ER 600 MG TAB PO ×2 (08:40→21:19)
[2017-09-18] MEDS: ASPIRIN 81 MG ENTERIC TAB PO (08:40)
[2017-09-19] MEDS: HumaLOG INSULIN (NovoLOG) PER UNIT SC ×4 (07:30→21:53)
[2017-09-19] MEDS: metFORMIN (GLUCOPHAGE) 500 MG TAB PO ×2 (07:34→16:59)
[2017-09-19] MEDS: CARVedilol 12.5 MG TAB PO ×2 (07:35→21:53)
[2017-09-19] MEDS: FUROSEMIDE 40 MG TAB PO (09:00)
[2017-09-19] MEDS: ASPIRIN 81 MG ENTERIC TAB PO (09:43)
[2017-09-19] MEDS: guaiFENesin ER 600 MG TAB PO ×2 (09:44→21:12)
[2017-09-19] MEDS: MULTIVITAMINS/MINERALS THERAP 1 TAB PO (09:44)
[2017-09-19] MEDS: SPIRONOLACTONE 25 MG TAB PO (09:44)
[2017-09-19] MEDS: LISINOPRIL 20 MG TAB PO (09:45)
[2017-09-20] MEDS: HumaLOG INSULIN (NovoLOG) PER UNIT SC ×4 (07:30→21:00)
[2017-09-20] MEDS: metFORMIN (GLUCOPHAGE) 500 MG TAB PO ×2 (08:00→18:00)
[2017-09-20] MEDS: CARVedilol 12.5 MG TAB PO ×2 (08:57→21:00)
[2017-09-20] MEDS: FUROSEMIDE 40 MG TAB PO (09:00)
[2017-09-20] MEDS: MULTIVITAMINS/MINERALS THERAP 1 TAB PO (09:35)
[2017-09-20] MEDS: SPIRONOLACTONE 25 MG TAB PO (09:35)
[2017-09-20] MEDS: LISINOPRIL 20 MG TAB PO (09:36)
[2017-09-20] MEDS: guaiFENesin ER 600 MG TAB PO ×2 (09:36→21:29)
[2017-09-20] MEDS: ASPIRIN 81 MG ENTERIC TAB PO (09:36)
[2017-09-21] MEDS: CARVedilol 12.5 MG TAB PO ×3 (06:50→18:47)
[2017-09-21] MEDS: metFORMIN (GLUCOPHAGE) 500 MG TAB PO ×4 (06:50→18:48)
[2017-09-21] MEDS: HumaLOG INSULIN (NovoLOG) PER UNIT SC ×7 (06:50→18:48)
[2017-09-21] MEDS: FUROSEMIDE 40 MG TAB PO ×2 (06:51→18:48)
[2017-09-21] MEDS: guaiFENesin ER 600 MG TAB PO ×2 (08:55→20:58)
[2017-09-21] MEDS: ASPIRIN 81 MG ENTERIC TAB PO (08:55)
[2017-09-21] MEDS: LISINOPRIL 20 MG TAB PO (08:55)
[2017-09-21] MEDS: MULTIVITAMINS/MINERALS THERAP 1 TAB PO (08:55)
[2017-09-21] MEDS: SPIRONOLACTONE 25 MG TAB PO (08:55)
[2017-09-22] MEDS: LISINOPRIL 20 MG TAB PO (09:39)
[2017-09-22] MEDS: SPIRONOLACTONE 25 MG TAB PO (09:39)
[2017-09-22] MEDS: MULTIVITAMINS/MINERALS THERAP 1 TAB PO (09:39)
[2017-09-22] MEDS: guaiFENesin ER 600 MG TAB PO ×2 (09:40→21:18)
[2017-09-22] MEDS: ASPIRIN 81 MG ENTERIC TAB PO (09:40)
[2017-09-22] MEDS: CARVedilol 12.5 MG TAB PO (19:06)
[2017-09-22] MEDS: HumaLOG INSULIN (NovoLOG) PER UNIT SC (19:07)
[2017-09-23] MEDS: HumaLOG INSULIN (NovoLOG) PER UNIT SC ×4 (07:30→21:00)
[2017-09-23] MEDS: metFORMIN (GLUCOPHAGE) 500 MG TAB PO ×2 (08:00→15:47)
[2017-09-23] MEDS: FUROSEMIDE 40 MG TAB PO (09:00)
[2017-09-23] MEDS: CARVedilol 12.5 MG TAB PO ×2 (09:00→21:00)
[2017-09-23] MEDS: SPIRONOLACTONE 25 MG TAB PO (09:30)
[2017-09-23] MEDS: ASPIRIN 81 MG ENTERIC TAB PO (09:30)
[2017-09-23] MEDS: MULTIVITAMINS/MINERALS THERAP 1 TAB PO (09:30)
[2017-09-23] MEDS: guaiFENesin ER 600 MG TAB PO ×2 (09:30→21:12)
[2017-09-23] MEDS: LISINOPRIL 20 MG TAB PO (09:30)
[2017-09-24] MEDS: HumaLOG INSULIN (NovoLOG) PER UNIT SC ×4 (07:30→21:00)
[2017-09-24] MEDS: metFORMIN (GLUCOPHAGE) 500 MG TAB PO ×2 (08:00→17:23)
[2017-09-24] MEDS: CARVedilol 12.5 MG TAB PO ×2 (08:31→21:00)
[2017-09-24] MEDS: FUROSEMIDE 40 MG TAB PO (08:31)
[2017-09-24] MEDS: ASPIRIN 81 MG ENTERIC TAB PO (10:09)
[2017-09-24] MEDS: SPIRONOLACTONE 25 MG TAB PO (10:10)
[2017-09-24] MEDS: LISINOPRIL 20 MG TAB PO (10:10)
[2017-09-24] MEDS: guaiFENesin ER 600 MG TAB PO ×2 (10:10→21:19)
[2017-09-24] MEDS: MULTIVITAMINS/MINERALS THERAP 1 TAB PO (10:10)
[2017-09-25] MEDS: HumaLOG INSULIN (NovoLOG) PER UNIT SC ×4 (07:30→21:00)
[2017-09-25] MEDS: CARVedilol 12.5 MG TAB PO ×2 (07:58→21:00)
[2017-09-25] MEDS: metFORMIN (GLUCOPHAGE) 500 MG TAB PO ×2 (07:58→11:47)
[2017-09-25] MEDS: FUROSEMIDE 40 MG TAB PO (07:58)
[2017-09-25] MEDS: MULTIVITAMINS/MINERALS THERAP 1 TAB PO (09:46)
[2017-09-25] MEDS: LISINOPRIL 20 MG TAB PO (09:46)
[2017-09-25] MEDS: guaiFENesin ER 600 MG TAB PO ×2 (09:46→21:13)
[2017-09-25] MEDS: ASPIRIN 81 MG ENTERIC TAB PO (09:46)
[2017-09-25] MEDS: SPIRONOLACTONE 25 MG TAB PO (09:46)
[2017-09-26] MEDS: metFORMIN (GLUCOPHAGE) 500 MG TAB PO ×2 (08:06→17:44)
[2017-09-26] MEDS: HumaLOG INSULIN (NovoLOG) PER UNIT SC ×4 (08:06→21:00)
[2017-09-26] MEDS: CARVedilol 12.5 MG TAB PO ×2 (08:07→21:00)
[2017-09-26] MEDS: FUROSEMIDE 40 MG TAB PO (09:09)
[2017-09-26] MEDS: MULTIVITAMINS/MINERALS THERAP 1 TAB PO (10:24)
[2017-09-26] MEDS: SPIRONOLACTONE 25 MG TAB PO (10:24)
[2017-09-26] MEDS: guaiFENesin ER 600 MG TAB PO ×3 (10:24→21:00)
[2017-09-26] MEDS: ASPIRIN 81 MG ENTERIC TAB PO (10:25)
[2017-09-26] MEDS: LISINOPRIL 20 MG TAB PO (10:29)
[2017-09-27] MEDS: HumaLOG INSULIN (NovoLOG) PER UNIT SC ×4 (07:30→19:41)
[2017-09-27] MEDS: metFORMIN (GLUCOPHAGE) 500 MG TAB PO ×2 (08:00→18:00)
[2017-09-27] MEDS: guaiFENesin ER 600 MG TAB PO ×2 (09:00→19:41)
[2017-09-27] MEDS: FUROSEMIDE 40 MG TAB PO (09:00)
[2017-09-27] MEDS: CARVedilol 12.5 MG TAB PO ×2 (09:00→19:40)
[2017-09-27] MEDS: ASPIRIN 81 MG ENTERIC TAB PO (10:26)
[2017-09-27] MEDS: SPIRONOLACTONE 25 MG TAB PO (10:26)
[2017-09-27] MEDS: MULTIVITAMINS/MINERALS THERAP 1 TAB PO (10:26)
[2017-09-27] MEDS: LISINOPRIL 20 MG TAB PO (10:31)
[2017-09-28] MEDS: HumaLOG INSULIN (NovoLOG) PER UNIT SC ×4 (07:30→20:21)
[2017-09-28] MEDS: metFORMIN (GLUCOPHAGE) 500 MG TAB PO ×2 (08:00→12:17)
[2017-09-28] MEDS: guaiFENesin ER 600 MG TAB PO ×2 (09:00→20:21)
[2017-09-28] MEDS: CARVedilol 12.5 MG TAB PO ×2 (09:00→20:21)
[2017-09-28] MEDS: FUROSEMIDE 40 MG TAB PO (09:00)
[2017-09-28] MEDS: LISINOPRIL 20 MG TAB PO (10:31)
[2017-09-28] MEDS: MULTIVITAMINS/MINERALS THERAP 1 TAB PO (10:31)
[2017-09-28] MEDS: SPIRONOLACTONE 25 MG TAB PO (10:31)
[2017-09-28] MEDS: ASPIRIN 81 MG ENTERIC TAB PO (10:31)
[2017-09-29] MEDS: HumaLOG INSULIN (NovoLOG) PER UNIT SC ×4 (07:30→21:00)
[2017-09-29] MEDS: metFORMIN (GLUCOPHAGE) 500 MG TAB PO ×2 (08:00→16:38)
[2017-09-29] MEDS: CARVedilol 12.5 MG TAB PO ×2 (08:31→21:00)
[2017-09-29] MEDS: FUROSEMIDE 40 MG TAB PO (08:32)
[2017-09-29] MEDS: guaiFENesin ER 600 MG TAB PO ×2 (08:32→21:00)
[2017-09-29] MEDS: SPIRONOLACTONE 25 MG TAB PO (09:22)
[2017-09-29] MEDS: ASPIRIN 81 MG ENTERIC TAB PO (09:22)
[2017-09-29] MEDS: MULTIVITAMINS/MINERALS THERAP 1 TAB PO (09:22)
[2017-09-29] MEDS: LISINOPRIL 20 MG TAB PO (09:23)
[2017-09-30] MEDS: HumaLOG INSULIN (NovoLOG) PER UNIT SC ×4 (07:30→20:37)
[2017-09-30] MEDS: CARVedilol 12.5 MG TAB PO ×2 (09:00→20:37)
[2017-09-30] MEDS: FUROSEMIDE 40 MG TAB PO (09:00)
[2017-09-30] MEDS: ASPIRIN 81 MG ENTERIC TAB PO (09:29)
[2017-09-30] MEDS: SPIRONOLACTONE 25 MG TAB PO (09:29)
[2017-09-30] MEDS: MULTIVITAMINS/MINERALS THERAP 1 TAB PO (09:29)
[2017-09-30] MEDS: LISINOPRIL 20 MG TAB PO (09:29)
[2017-09-30] MEDS: metFORMIN (GLUCOPHAGE) 500 MG TAB PO ×2 (09:42→18:00)
[2017-09-30] MEDS: guaiFENesin ER 600 MG TAB PO ×2 (09:44→20:37)
[2017-10-01] MEDS: HumaLOG INSULIN (NovoLOG) PER UNIT SC ×4 (07:30→21:00)
[2017-10-01] MEDS: metFORMIN (GLUCOPHAGE) 500 MG TAB PO ×2 (08:00→17:11)
[2017-10-01] MEDS: CARVedilol 12.5 MG TAB PO ×2 (08:35→21:00)
[2017-10-01] MEDS: guaiFENesin ER 600 MG TAB PO ×2 (08:36→21:00)
[2017-10-01] MEDS: FUROSEMIDE 40 MG TAB PO (09:00)
[2017-10-01] MEDS: ASPIRIN 81 MG ENTERIC TAB PO (10:04)
[2017-10-01] MEDS: MULTIVITAMINS/MINERALS THERAP 1 TAB PO (10:04)
[2017-10-01] MEDS: SPIRONOLACTONE 25 MG TAB PO (10:04)
[2017-10-01] MEDS: LISINOPRIL 20 MG TAB PO (10:06)
[2017-10-02] MEDS: HumaLOG INSULIN (NovoLOG) PER UNIT SC ×5 (07:08→08:35)
[2017-10-02] MEDS: CARVedilol 12.5 MG TAB PO ×2 (07:09→07:17)
[2017-10-02] MEDS: metFORMIN (GLUCOPHAGE) 500 MG TAB PO ×3 (07:09→08:35)
[2017-10-02] MEDS: FUROSEMIDE 40 MG TAB PO (07:09)
[2017-10-02] MEDS: guaiFENesin ER 600 MG TAB PO ×2 (07:16→07:18)
[2017-10-02] MEDS: MULTIVITAMINS/MINERALS THERAP 1 TAB PO (09:53)
[2017-10-02] MEDS: LISINOPRIL 20 MG TAB PO (09:53)
[2017-10-02] MEDS: SPIRONOLACTONE 25 MG TAB PO (09:53)
[2017-10-02] MEDS: ASPIRIN 81 MG ENTERIC TAB PO (09:53)
[2017-10-03] MEDS: CARVedilol 12.5 MG TAB PO ×2 (07:19→08:40)
[2017-10-03] MEDS: FUROSEMIDE 40 MG TAB PO (07:20)
[2017-10-03] MEDS: guaiFENesin ER 600 MG TAB PO ×2 (07:20→08:40)
[2017-10-03] MEDS: HumaLOG INSULIN (NovoLOG) PER UNIT SC ×3 (07:20→08:40)
[2017-10-03] MEDS: metFORMIN (GLUCOPHAGE) 500 MG TAB PO ×2 (07:22→08:40)
[2017-10-03] MEDS: LISINOPRIL 20 MG TAB PO (08:39)
[2017-10-03] MEDS: MULTIVITAMINS/MINERALS THERAP 1 TAB PO (08:39)
[2017-10-03] MEDS: ASPIRIN 81 MG ENTERIC TAB PO (08:39)
[2017-10-03] MEDS: SPIRONOLACTONE 25 MG TAB PO (08:39)
[2017-10-04] MEDS: HumaLOG INSULIN (NovoLOG) PER UNIT SC ×4 (07:30→19:46)
[2017-10-04] MEDS: CARVedilol 12.5 MG TAB PO ×2 (07:38→19:45)
[2017-10-04] MEDS: FUROSEMIDE 40 MG TAB PO (07:39)
[2017-10-04] MEDS: guaiFENesin ER 600 MG TAB PO ×2 (09:00→19:45)
[2017-10-04] MEDS: ASPIRIN 81 MG ENTERIC TAB PO (09:46)
[2017-10-04] MEDS: SPIRONOLACTONE 25 MG TAB PO (09:46)
[2017-10-04] MEDS: MULTIVITAMINS/MINERALS THERAP 1 TAB PO (09:46)
[2017-10-04] MEDS: LISINOPRIL 20 MG TAB PO (09:46)
[2017-10-04] MEDS: metFORMIN (GLUCOPHAGE) 500 MG TAB PO (17:49)
[2017-10-05] MEDS: HumaLOG INSULIN (NovoLOG) PER UNIT SC ×4 (07:30→21:00)
[2017-10-05] MEDS: CARVedilol 12.5 MG TAB PO ×2 (07:45→21:00)
[2017-10-05] MEDS: FUROSEMIDE 40 MG TAB PO (07:45)
[2017-10-05] MEDS: metFORMIN (GLUCOPHAGE) 500 MG TAB PO ×2 (07:45→19:18)
[2017-10-05] MEDS: guaiFENesin ER 600 MG TAB PO ×2 (07:46→21:00)
[2017-10-05] MEDS: ASPIRIN 81 MG ENTERIC TAB PO (11:01)
[2017-10-05] MEDS: SPIRONOLACTONE 25 MG TAB PO (11:03)
[2017-10-05] MEDS: MULTIVITAMINS/MINERALS THERAP 1 TAB PO (11:04)
[2017-10-05] MEDS: LISINOPRIL 20 MG TAB PO (11:04)
[2017-10-06] MEDS: HumaLOG INSULIN (NovoLOG) PER UNIT SC ×4 (07:30→20:13)
[2017-10-06] MEDS: metFORMIN (GLUCOPHAGE) 500 MG TAB PO ×2 (07:31→17:41)
[2017-10-06] MEDS: guaiFENesin ER 600 MG TAB PO ×2 (07:33→20:13)
[2017-10-06] MEDS: FUROSEMIDE 40 MG TAB PO (07:33)
[2017-10-06] MEDS: CARVedilol 12.5 MG TAB PO ×2 (07:34→20:12)
[2017-10-06] MEDS: ASPIRIN 81 MG ENTERIC TAB PO (11:07)
[2017-10-06] MEDS: SPIRONOLACTONE 25 MG TAB PO (11:07)
[2017-10-06] MEDS: MULTIVITAMINS/MINERALS THERAP 1 TAB PO (11:08)
[2017-10-06] MEDS: LISINOPRIL 20 MG TAB PO (11:15)
[2017-10-07] MEDS: CARVedilol 12.5 MG TAB PO ×2 (06:58→21:57)
[2017-10-07] MEDS: HumaLOG INSULIN (NovoLOG) PER UNIT SC ×4 (06:58→21:57)
[2017-10-07] MEDS: metFORMIN (GLUCOPHAGE) 500 MG TAB PO ×2 (06:58→10:08)
[2017-10-07] MEDS: FUROSEMIDE 40 MG TAB PO (06:59)
[2017-10-07] MEDS: guaiFENesin ER 600 MG TAB PO ×2 (09:13→21:57)
[2017-10-07] MEDS: MULTIVITAMINS/MINERALS THERAP 1 TAB PO (10:07)
[2017-10-07] MEDS: SPIRONOLACTONE 25 MG TAB PO (10:07)
[2017-10-07] MEDS: ASPIRIN 81 MG ENTERIC TAB PO (10:07)
[2017-10-07] MEDS: LISINOPRIL 20 MG TAB PO (10:07)
[2017-10-08] MEDS: HumaLOG INSULIN (NovoLOG) PER UNIT SC ×4 (07:30→21:23)
[2017-10-08] MEDS: metFORMIN (GLUCOPHAGE) 500 MG TAB PO ×2 (08:00→16:25)
[2017-10-08] MEDS: CARVedilol 12.5 MG TAB PO ×2 (09:00→21:22)
[2017-10-08] MEDS: guaiFENesin ER 600 MG TAB PO ×2 (09:00→21:22)
[2017-10-08] MEDS: FUROSEMIDE 40 MG TAB PO (09:00)
[2017-10-08] MEDS: MULTIVITAMINS/MINERALS THERAP 1 TAB PO (09:29)
[2017-10-08] MEDS: LISINOPRIL 20 MG TAB PO (09:29)
[2017-10-08] MEDS: ASPIRIN 81 MG ENTERIC TAB PO (09:30)
[2017-10-08] MEDS: SPIRONOLACTONE 25 MG TAB PO (09:30)
[2017-10-09] MEDS: HumaLOG INSULIN (NovoLOG) PER UNIT SC ×3 (07:30→21:00)
[2017-10-09] MEDS: metFORMIN (GLUCOPHAGE) 500 MG TAB PO ×2 (08:00→18:00)
[2017-10-09] MEDS: FUROSEMIDE 40 MG TAB PO (09:00)
[2017-10-09] MEDS: CARVedilol 12.5 MG TAB PO ×2 (09:00→21:00)
[2017-10-09] MEDS: guaiFENesin ER 600 MG TAB PO ×2 (09:00→21:00)
[2017-10-09] MEDS: MULTIVITAMINS/MINERALS THERAP 1 TAB PO (10:21)
[2017-10-09] MEDS: LISINOPRIL 20 MG TAB PO (10:21)
[2017-10-09] MEDS: ASPIRIN 81 MG ENTERIC TAB PO (10:21)
[2017-10-09] MEDS: SPIRONOLACTONE 25 MG TAB PO (10:21)
[2017-10-10] MEDS: HumaLOG INSULIN (NovoLOG) PER UNIT SC ×5 (07:30→21:00)
[2017-10-10] MEDS: metFORMIN (GLUCOPHAGE) 500 MG TAB PO ×2 (08:00→17:13)
[2017-10-10] MEDS: CARVedilol 12.5 MG TAB PO ×2 (09:00→17:13)
[2017-10-10] MEDS: FUROSEMIDE 40 MG TAB PO (09:00)
[2017-10-10] MEDS: guaiFENesin ER 600 MG TAB PO ×2 (09:00→21:00)
[2017-10-10] MEDS: MULTIVITAMINS/MINERALS THERAP 1 TAB PO (10:23)
[2017-10-10] MEDS: SPIRONOLACTONE 25 MG TAB PO (10:23)
[2017-10-10] MEDS: LISINOPRIL 20 MG TAB PO (10:24)
[2017-10-10] MEDS: ASPIRIN 81 MG ENTERIC TAB PO (10:24)
[2017-10-11] MEDS: metFORMIN (GLUCOPHAGE) 500 MG TAB PO ×2 (07:48→09:10)
[2017-10-11] MEDS: HumaLOG INSULIN (NovoLOG) PER UNIT SC ×4 (07:48→20:34)
[2017-10-11] MEDS: CARVedilol 12.5 MG TAB PO ×2 (07:49→20:34)
[2017-10-11] MEDS: FUROSEMIDE 40 MG TAB PO (07:50)
[2017-10-11] MEDS: guaiFENesin ER 600 MG TAB PO ×2 (07:50→20:34)
[2017-10-11] MEDS: MULTIVITAMINS/MINERALS THERAP 1 TAB PO (09:37)
[2017-10-11] MEDS: ASPIRIN 81 MG ENTERIC TAB PO (09:37)
[2017-10-11] MEDS: SPIRONOLACTONE 25 MG TAB PO (09:37)
[2017-10-11] MEDS: LISINOPRIL 20 MG TAB PO (09:38)
[2017-10-12] MEDS: HumaLOG INSULIN (NovoLOG) PER UNIT SC ×4 (07:30→21:00)
[2017-10-12] MEDS: metFORMIN (GLUCOPHAGE) 500 MG TAB PO ×2 (08:00→15:28)
[2017-10-12] MEDS: FUROSEMIDE 40 MG TAB PO (09:00)
[2017-10-12] MEDS: guaiFENesin ER 600 MG TAB PO ×2 (09:00→21:00)
[2017-10-12] MEDS: CARVedilol 12.5 MG TAB PO ×2 (09:00→21:00)
[2017-10-12] MEDS: MULTIVITAMINS/MINERALS THERAP 1 TAB PO (11:40)
[2017-10-12] MEDS: SPIRONOLACTONE 25 MG TAB PO (11:40)
[2017-10-12] MEDS: ASPIRIN 81 MG ENTERIC TAB PO (11:40)
[2017-10-12] MEDS: LISINOPRIL 20 MG TAB PO (11:40)
[2017-10-13] MEDS: HumaLOG INSULIN (NovoLOG) PER UNIT SC ×4 (07:25→21:00)
[2017-10-13] MEDS: CARVedilol 12.5 MG TAB PO ×2 (07:25→21:00)
[2017-10-13] MEDS: metFORMIN (GLUCOPHAGE) 500 MG TAB PO ×2 (07:25→18:00)
[2017-10-13] MEDS: FUROSEMIDE 40 MG TAB PO (08:48)
[2017-10-13] MEDS: guaiFENesin ER 600 MG TAB PO ×2 (08:49→21:00)
[2017-10-13] MEDS: SPIRONOLACTONE 25 MG TAB PO (08:52)
[2017-10-13] MEDS: ASPIRIN 81 MG ENTERIC TAB PO (08:52)
[2017-10-13] MEDS: MULTIVITAMINS/MINERALS THERAP 1 TAB PO (08:52)
[2017-10-13] MEDS: LISINOPRIL 20 MG TAB PO (08:52)
[2017-10-14] MEDS: HumaLOG INSULIN (NovoLOG) PER UNIT SC ×4 (07:30→21:00)
[2017-10-14] MEDS: CARVedilol 12.5 MG TAB PO ×2 (07:39→21:00)
[2017-10-14] MEDS: metFORMIN (GLUCOPHAGE) 500 MG TAB PO ×2 (07:39→13:55)
[2017-10-14] MEDS: FUROSEMIDE 40 MG TAB PO (07:40)
[2017-10-14] MEDS: guaiFENesin ER 600 MG TAB PO ×2 (07:41→21:00)
[2017-10-14] MEDS: ASPIRIN 81 MG ENTERIC TAB PO (08:54)
[2017-10-14] MEDS: MULTIVITAMINS/MINERALS THERAP 1 TAB PO (08:54)
[2017-10-14] MEDS: SPIRONOLACTONE 25 MG TAB PO (08:54)
[2017-10-14] MEDS: LISINOPRIL 20 MG TAB PO (08:54)
[2017-10-15] MEDS: HumaLOG INSULIN (NovoLOG) PER UNIT SC ×4 (07:30→20:37)
[2017-10-15] MEDS: metFORMIN (GLUCOPHAGE) 500 MG TAB PO ×2 (08:00→18:00)
[2017-10-15] MEDS: CARVedilol 12.5 MG TAB PO ×2 (08:04→20:37)
[2017-10-15] MEDS: FUROSEMIDE 40 MG TAB PO (08:05)
[2017-10-15] MEDS: guaiFENesin ER 600 MG TAB PO ×2 (09:00→20:37)
[2017-10-15] MEDS: ASPIRIN 81 MG ENTERIC TAB PO (11:26)
[2017-10-15] MEDS: LISINOPRIL 20 MG TAB PO (11:26)
[2017-10-15] MEDS: MULTIVITAMINS/MINERALS THERAP 1 TAB PO (11:27)
[2017-10-15] MEDS: SPIRONOLACTONE 25 MG TAB PO (11:27)
[2017-10-16] MEDS: HumaLOG INSULIN (NovoLOG) PER UNIT SC ×4 (07:25→21:00)
[2017-10-16] MEDS: metFORMIN (GLUCOPHAGE) 500 MG TAB PO ×2 (07:25→15:01)
[2017-10-16] MEDS: FUROSEMIDE 40 MG TAB PO (09:00)
[2017-10-16] MEDS: CARVedilol 12.5 MG TAB PO ×2 (09:00→21:00)
[2017-10-16] MEDS: guaiFENesin ER 600 MG TAB PO ×2 (09:00→21:00)
[2017-10-16] MEDS: ASPIRIN 81 MG ENTERIC TAB PO (09:27)
[2017-10-16] MEDS: SPIRONOLACTONE 25 MG TAB PO (09:27)
[2017-10-16] MEDS: MULTIVITAMINS/MINERALS THERAP 1 TAB PO (09:27)
[2017-10-16] MEDS: LISINOPRIL 20 MG TAB PO (09:29)
[2017-10-17] MEDS: HumaLOG INSULIN (NovoLOG) PER UNIT SC ×4 (07:30→20:45)
[2017-10-17] MEDS: metFORMIN (GLUCOPHAGE) 500 MG TAB PO ×2 (08:00→17:39)
[2017-10-17] MEDS: CARVedilol 12.5 MG TAB PO ×2 (08:08→20:45)
[2017-10-17] MEDS: guaiFENesin ER 600 MG TAB PO ×2 (08:09→20:45)
[2017-10-17] MEDS: FUROSEMIDE 40 MG TAB PO (08:09)
[2017-10-17] MEDS: SPIRONOLACTONE 25 MG TAB PO (09:13)
[2017-10-17] MEDS: LISINOPRIL 20 MG TAB PO (09:14)
[2017-10-17] MEDS: MULTIVITAMINS/MINERALS THERAP 1 TAB PO (09:14)
[2017-10-17] MEDS: ASPIRIN 81 MG ENTERIC TAB PO (09:14)
[2017-10-18] MEDS: HumaLOG INSULIN (NovoLOG) PER UNIT SC ×4 (08:03→20:07)
[2017-10-18] MEDS: CARVedilol 12.5 MG TAB PO ×2 (08:04→20:06)
[2017-10-18] MEDS: FUROSEMIDE 40 MG TAB PO (08:04)
[2017-10-18] MEDS: guaiFENesin ER 600 MG TAB PO ×2 (08:04→20:07)
[2017-10-18] MEDS: metFORMIN (GLUCOPHAGE) 500 MG TAB PO ×2 (08:04→16:05)
[2017-10-18] MEDS: SPIRONOLACTONE 25 MG TAB PO (09:32)
[2017-10-18] MEDS: MULTIVITAMINS/MINERALS THERAP 1 TAB PO (09:33)
[2017-10-18] MEDS: LISINOPRIL 20 MG TAB PO (09:33)
[2017-10-18] MEDS: ASPIRIN 81 MG ENTERIC TAB PO (09:33)
[2017-10-19] MEDS: HumaLOG INSULIN (NovoLOG) PER UNIT SC ×4 (07:30→21:00)
[2017-10-19] MEDS: CARVedilol 12.5 MG TAB PO ×2 (07:37→21:00)
[2017-10-19] MEDS: metFORMIN (GLUCOPHAGE) 500 MG TAB PO ×2 (07:37→17:46)
[2017-10-19] MEDS: guaiFENesin ER 600 MG TAB PO ×2 (07:38→21:00)
[2017-10-19] MEDS: FUROSEMIDE 40 MG TAB PO (07:38)
[2017-10-19] MEDS: SPIRONOLACTONE 25 MG TAB PO (09:19)
[2017-10-19] MEDS: ASPIRIN 81 MG ENTERIC TAB PO (09:20)
[2017-10-19] MEDS: MULTIVITAMINS/MINERALS THERAP 1 TAB PO (09:20)
[2017-10-19] MEDS: LISINOPRIL 20 MG TAB PO (09:26)
[2017-10-20] MEDS: CARVedilol 12.5 MG TAB PO ×2 (07:34→21:00)
[2017-10-20] MEDS: metFORMIN (GLUCOPHAGE) 500 MG TAB PO ×2 (07:34→17:31)
[2017-10-20] MEDS: FUROSEMIDE 40 MG TAB PO (07:34)
[2017-10-20] MEDS: HumaLOG INSULIN (NovoLOG) PER UNIT SC ×4 (07:34→21:00)
[2017-10-20] MEDS: guaiFENesin ER 600 MG TAB PO ×2 (07:35→21:00)
[2017-10-20] MEDS: MULTIVITAMINS/MINERALS THERAP 1 TAB PO (10:04)
[2017-10-20] MEDS: ASPIRIN 81 MG ENTERIC TAB PO (10:05)
[2017-10-20] MEDS: SPIRONOLACTONE 25 MG TAB PO (10:05)
[2017-10-20] MEDS: LISINOPRIL 20 MG TAB PO (10:10)
[2017-10-21] MEDS: HumaLOG INSULIN (NovoLOG) PER UNIT SC ×4 (07:56→20:17)
[2017-10-21] MEDS: metFORMIN (GLUCOPHAGE) 500 MG TAB PO ×2 (07:57→18:18)
[2017-10-21] MEDS: CARVedilol 12.5 MG TAB PO ×2 (07:58→20:17)
[2017-10-21] MEDS: FUROSEMIDE 40 MG TAB PO (07:59)
[2017-10-21] MEDS: guaiFENesin ER 600 MG TAB PO ×2 (08:00→20:17)
[2017-10-21] MEDS: MULTIVITAMINS/MINERALS THERAP 1 TAB PO (10:23)
[2017-10-21] MEDS: SPIRONOLACTONE 25 MG TAB PO (10:23)
[2017-10-21] MEDS: ASPIRIN 81 MG ENTERIC TAB PO (10:23)
[2017-10-21] MEDS: LISINOPRIL 20 MG TAB PO (10:24)
[2017-10-22] MEDS: HumaLOG INSULIN (NovoLOG) PER UNIT SC ×4 (07:30→19:59)
[2017-10-22] MEDS: CARVedilol 12.5 MG TAB PO ×2 (07:52→20:00)
[2017-10-22] MEDS: metFORMIN (GLUCOPHAGE) 500 MG TAB PO ×2 (07:52→17:25)
[2017-10-22] MEDS: guaiFENesin ER 600 MG TAB PO ×2 (07:53→19:59)
[2017-10-22] MEDS: FUROSEMIDE 40 MG TAB PO (07:53)
[2017-10-22] MEDS: ASPIRIN 81 MG ENTERIC TAB PO (09:38)
[2017-10-22] MEDS: MULTIVITAMINS/MINERALS THERAP 1 TAB PO (09:38)
[2017-10-22] MEDS: SPIRONOLACTONE 25 MG TAB PO (09:38)
[2017-10-22] MEDS: LISINOPRIL 20 MG TAB PO (09:40)
[2017-10-23] MEDS: HumaLOG INSULIN (NovoLOG) PER UNIT SC ×4 (07:30→21:00)
[2017-10-23] MEDS: metFORMIN (GLUCOPHAGE) 500 MG TAB PO ×2 (08:00→18:00)
[2017-10-23] MEDS: CARVedilol 12.5 MG TAB PO ×2 (08:51→21:00)
[2017-10-23] MEDS: FUROSEMIDE 40 MG TAB PO (08:52)
[2017-10-23] MEDS: guaiFENesin ER 600 MG TAB PO ×2 (08:52→21:00)
[2017-10-23] MEDS: MULTIVITAMINS/MINERALS THERAP 1 TAB PO (08:55)
[2017-10-23] MEDS: LISINOPRIL 20 MG TAB PO (08:55)
[2017-10-23] MEDS: ASPIRIN 81 MG ENTERIC TAB PO (08:55)
[2017-10-23] MEDS: SPIRONOLACTONE 25 MG TAB PO (08:55)
[2017-10-24] MEDS: HumaLOG INSULIN (NovoLOG) PER UNIT SC ×4 (07:49→20:36)
[2017-10-24] MEDS: metFORMIN (GLUCOPHAGE) 500 MG TAB PO ×2 (08:00→17:31)
[2017-10-24] MEDS: FUROSEMIDE 40 MG TAB PO (09:29)
[2017-10-24] MEDS: CARVedilol 12.5 MG TAB PO ×2 (09:29→20:36)
[2017-10-24] MEDS: guaiFENesin ER 600 MG TAB PO ×2 (09:30→20:36)
[2017-10-24] MEDS: MULTIVITAMINS/MINERALS THERAP 1 TAB PO (09:30)
[2017-10-24] MEDS: SPIRONOLACTONE 25 MG TAB PO (09:31)
[2017-10-24] MEDS: LISINOPRIL 20 MG TAB PO (09:31)
[2017-10-24] MEDS: ASPIRIN 81 MG ENTERIC TAB PO (09:31)
[2017-10-25] MEDS: HumaLOG INSULIN (NovoLOG) PER UNIT SC ×4 (07:50→21:00)
[2017-10-25] MEDS: metFORMIN (GLUCOPHAGE) 500 MG TAB PO ×2 (07:50→12:21)
[2017-10-25] MEDS: CARVedilol 12.5 MG TAB PO ×2 (07:51→21:00)
[2017-10-25] MEDS: FUROSEMIDE 40 MG TAB PO (07:51)
[2017-10-25] MEDS: guaiFENesin ER 600 MG TAB PO ×2 (07:52→21:00)
[2017-10-25] MEDS: SPIRONOLACTONE 25 MG TAB PO (10:03)
[2017-10-25] MEDS: ASPIRIN 81 MG ENTERIC TAB PO (10:03)
[2017-10-25] MEDS: MULTIVITAMINS/MINERALS THERAP 1 TAB PO (10:03)
[2017-10-25] MEDS: LISINOPRIL 20 MG TAB PO (10:09)
[2017-10-26] MEDS: HumaLOG INSULIN (NovoLOG) PER UNIT SC ×4 (07:30→19:50)
[2017-10-26] MEDS: metFORMIN (GLUCOPHAGE) 500 MG TAB PO ×2 (08:00→17:06)
[2017-10-26] MEDS: CARVedilol 12.5 MG TAB PO ×2 (08:31→19:49)
[2017-10-26] MEDS: FUROSEMIDE 40 MG TAB PO (08:32)
[2017-10-26] MEDS: guaiFENesin ER 600 MG TAB PO ×2 (09:00→19:49)
[2017-10-26] MEDS: MULTIVITAMINS/MINERALS THERAP 1 TAB PO (09:33)
[2017-10-26] MEDS: SPIRONOLACTONE 25 MG TAB PO (09:33)
[2017-10-26] MEDS: LISINOPRIL 20 MG TAB PO (09:33)
[2017-10-26] MEDS: ASPIRIN 81 MG ENTERIC TAB PO (09:33)
[2017-10-27] MEDS: HumaLOG INSULIN (NovoLOG) PER UNIT SC ×4 (07:30→20:24)
[2017-10-27] MEDS: metFORMIN (GLUCOPHAGE) 500 MG TAB PO ×2 (08:00→17:02)
[2017-10-27] MEDS: CARVedilol 12.5 MG TAB PO ×2 (08:04→20:23)
[2017-10-27] MEDS: guaiFENesin ER 600 MG TAB PO ×2 (08:05→20:23)
[2017-10-27] MEDS: FUROSEMIDE 40 MG TAB PO (09:00)
[2017-10-27] MEDS: LISINOPRIL 20 MG TAB PO (09:45)
[2017-10-27] MEDS: SPIRONOLACTONE 25 MG TAB PO (09:45)
[2017-10-27] MEDS: MULTIVITAMINS/MINERALS THERAP 1 TAB PO (09:45)
[2017-10-27] MEDS: ASPIRIN 81 MG ENTERIC TAB PO (09:45)
[2017-10-27] MEDS ORDERED: HALOPERIDOL 5 MG/ML VIAL (J1630) IM (11:15)
[2017-10-28] MEDS: HumaLOG INSULIN (NovoLOG) PER UNIT SC ×4 (07:30→20:00)
[2017-10-28] MEDS: metFORMIN (GLUCOPHAGE) 500 MG TAB PO ×2 (08:00→17:06)
[2017-10-28] MEDS: guaiFENesin ER 600 MG TAB PO ×2 (09:00→20:00)
[2017-10-28] MEDS: CARVedilol 12.5 MG TAB PO ×2 (09:00→20:00)
[2017-10-28] MEDS: FUROSEMIDE 40 MG TAB PO (09:46)
[2017-10-28] MEDS: LISINOPRIL 20 MG TAB PO (09:59)
[2017-10-28] MEDS: SPIRONOLACTONE 25 MG TAB PO (09:59)
[2017-10-28] MEDS: MULTIVITAMINS/MINERALS THERAP 1 TAB PO (10:00)
[2017-10-28] MEDS: ASPIRIN 81 MG ENTERIC TAB PO (10:03)
[2017-10-29] MEDS: metFORMIN (GLUCOPHAGE) 500 MG TAB PO ×2 (07:37→17:16)
[2017-10-29] MEDS: HumaLOG INSULIN (NovoLOG) PER UNIT SC ×4 (07:37→21:30)
[2017-10-29] MEDS: FUROSEMIDE 40 MG TAB PO (09:37)
[2017-10-29] MEDS: guaiFENesin ER 600 MG TAB PO ×2 (09:37→21:30)
[2017-10-29] MEDS: CARVedilol 12.5 MG TAB PO ×2 (09:37→21:30)
[2017-10-29] MEDS: SPIRONOLACTONE 25 MG TAB PO (09:44)
[2017-10-29] MEDS: MULTIVITAMINS/MINERALS THERAP 1 TAB PO (09:44)
[2017-10-29] MEDS: ASPIRIN 81 MG ENTERIC TAB PO (09:44)
[2017-10-29] MEDS: LISINOPRIL 20 MG TAB PO (09:44)
[2017-10-30] MEDS: HumaLOG INSULIN (NovoLOG) PER UNIT SC ×4 (07:30→20:00)
[2017-10-30] MEDS: CARVedilol 12.5 MG TAB PO ×3 (07:33→20:00)
[2017-10-30] MEDS: FUROSEMIDE 40 MG TAB PO (07:33)
[2017-10-30] MEDS: metFORMIN (GLUCOPHAGE) 500 MG TAB PO ×2 (07:33→16:04)
[2017-10-30] MEDS: guaiFENesin ER 600 MG TAB PO ×2 (09:00→20:00)
[2017-10-30] MEDS: LISINOPRIL 20 MG TAB PO (09:27)
[2017-10-30] MEDS: SPIRONOLACTONE 25 MG TAB PO (09:27)
[2017-10-30] MEDS: MULTIVITAMINS/MINERALS THERAP 1 TAB PO (09:27)
[2017-10-30] MEDS: ASPIRIN 81 MG ENTERIC TAB PO (09:27)
[2017-10-31] MEDS: HumaLOG INSULIN (NovoLOG) PER UNIT SC ×4 (07:30→21:00)
[2017-10-31] MEDS: metFORMIN (GLUCOPHAGE) 500 MG TAB PO ×2 (08:00→18:00)
[2017-10-31] MEDS: CARVedilol 12.5 MG TAB PO ×2 (08:45→21:00)
[2017-10-31] MEDS: guaiFENesin ER 600 MG TAB PO ×2 (08:45→21:00)
[2017-10-31] MEDS: MULTIVITAMINS/MINERALS THERAP 1 TAB PO (08:55)
[2017-10-31] MEDS: FUROSEMIDE 40 MG TAB PO (08:55)
[2017-10-31] MEDS: ASPIRIN 81 MG ENTERIC TAB PO (08:56)
[2017-10-31] MEDS: LISINOPRIL 20 MG TAB PO (08:56)
[2017-10-31] MEDS: SPIRONOLACTONE 25 MG TAB PO (08:56)
[2017-11-01] MEDS: HumaLOG INSULIN (NovoLOG) PER UNIT SC ×4 (07:30→21:00)
[2017-11-01] MEDS: metFORMIN (GLUCOPHAGE) 500 MG TAB PO ×2 (07:43→15:55)
[2017-11-01] MEDS: CARVedilol 12.5 MG TAB PO ×2 (07:44→21:00)
[2017-11-01] MEDS: FUROSEMIDE 40 MG TAB PO (07:45)
[2017-11-01] MEDS: guaiFENesin ER 600 MG TAB PO ×2 (08:49→21:00)
[2017-11-01] MEDS: LISINOPRIL 20 MG TAB PO (08:57)
[2017-11-01] MEDS: MULTIVITAMINS/MINERALS THERAP 1 TAB PO (08:57)
[2017-11-01] MEDS: SPIRONOLACTONE 25 MG TAB PO (08:57)
[2017-11-01] MEDS: ASPIRIN 81 MG ENTERIC TAB PO (08:58)
[2017-11-02] MEDS: HumaLOG INSULIN (NovoLOG) PER UNIT SC ×4 (07:30→20:00)
[2017-11-02] MEDS: metFORMIN (GLUCOPHAGE) 500 MG TAB PO ×2 (08:00→17:09)
[2017-11-02] MEDS: CARVedilol 12.5 MG TAB PO ×2 (08:46→20:00)
[2017-11-02] MEDS: FUROSEMIDE 40 MG TAB PO (08:47)
[2017-11-02] MEDS: guaiFENesin ER 600 MG TAB PO ×2 (08:47→20:00)
[2017-11-02] MEDS: ASPIRIN 81 MG ENTERIC TAB PO (08:53)
[2017-11-02] MEDS: SPIRONOLACTONE 25 MG TAB PO (08:53)
[2017-11-02] MEDS: MULTIVITAMINS/MINERALS THERAP 1 TAB PO (08:53)
[2017-11-02] MEDS: LISINOPRIL 20 MG TAB PO (08:53)
[2017-11-03] MEDS: HumaLOG INSULIN (NovoLOG) PER UNIT SC ×4 (07:30→20:00)
[2017-11-03] MEDS: metFORMIN (GLUCOPHAGE) 500 MG TAB PO ×2 (08:00→17:36)
[2017-11-03] MEDS: CARVedilol 12.5 MG TAB PO ×2 (09:00→20:00)
[2017-11-03] MEDS: FUROSEMIDE 40 MG TAB PO (09:00)
[2017-11-03] MEDS: guaiFENesin ER 600 MG TAB PO ×2 (09:00→20:00)
[2017-11-03] MEDS: SPIRONOLACTONE 25 MG TAB PO (11:40)
[2017-11-03] MEDS: LISINOPRIL 20 MG TAB PO (11:40)
[2017-11-03] MEDS: ASPIRIN 81 MG ENTERIC TAB PO (11:41)
[2017-11-03] MEDS: MULTIVITAMINS/MINERALS THERAP 1 TAB PO (11:41)
[2017-11-04] MEDS: HumaLOG INSULIN (NovoLOG) PER UNIT SC ×4 (07:30→20:00)
[2017-11-04] MEDS: metFORMIN (GLUCOPHAGE) 500 MG TAB PO ×2 (08:00→18:00)
[2017-11-04] MEDS: CARVedilol 12.5 MG TAB PO ×2 (09:00→20:00)
[2017-11-04] MEDS: guaiFENesin ER 600 MG TAB PO ×2 (09:00→20:00)
[2017-11-04] MEDS: FUROSEMIDE 40 MG TAB PO (09:00)
[2017-11-04] MEDS: ASPIRIN 81 MG ENTERIC TAB PO (10:13)
[2017-11-04] MEDS: SPIRONOLACTONE 25 MG TAB PO (10:14)
[2017-11-04] MEDS: LISINOPRIL 20 MG TAB PO (10:15)
[2017-11-04] MEDS: MULTIVITAMINS/MINERALS THERAP 1 TAB PO (10:15)
[2017-11-05] MEDS: HumaLOG INSULIN (NovoLOG) PER UNIT SC ×4 (07:30→20:10)
[2017-11-05] MEDS: metFORMIN (GLUCOPHAGE) 500 MG TAB PO ×2 (08:00→18:00)
[2017-11-05] MEDS: guaiFENesin ER 600 MG TAB PO ×2 (08:11→20:10)
[2017-11-05] MEDS: CARVedilol 12.5 MG TAB PO ×2 (08:11→20:10)
[2017-11-05] MEDS: FUROSEMIDE 40 MG TAB PO (08:11)
[2017-11-05] MEDS: MULTIVITAMINS/MINERALS THERAP 1 TAB PO (10:16)
[2017-11-05] MEDS: LISINOPRIL 20 MG TAB PO (10:16)
[2017-11-05] MEDS: SPIRONOLACTONE 25 MG TAB PO (10:17)
[2017-11-05] MEDS: ASPIRIN 81 MG ENTERIC TAB PO (10:17)
[2017-11-06] MEDS: FUROSEMIDE 40 MG TAB PO (08:49)
[2017-11-06] MEDS: guaiFENesin ER 600 MG TAB PO ×2 (08:49→20:16)
[2017-11-06] MEDS: CARVedilol 12.5 MG TAB PO ×2 (08:49→20:16)
[2017-11-06] MEDS: HumaLOG INSULIN (NovoLOG) PER UNIT SC ×4 (08:49→20:16)
[2017-11-06] MEDS: metFORMIN (GLUCOPHAGE) 500 MG TAB PO ×2 (08:49→18:00)
[2017-11-06] MEDS: SPIRONOLACTONE 25 MG TAB PO (08:55)
[2017-11-06] MEDS: LISINOPRIL 20 MG TAB PO (08:56)
[2017-11-06] MEDS: ASPIRIN 81 MG ENTERIC TAB PO (08:56)
[2017-11-06] MEDS: MULTIVITAMINS/MINERALS THERAP 1 TAB PO (08:56)
[2017-11-07] MEDS: HumaLOG INSULIN (NovoLOG) PER UNIT SC ×4 (07:30→20:51)
[2017-11-07] MEDS: metFORMIN (GLUCOPHAGE) 500 MG TAB PO ×2 (08:00→18:00)
[2017-11-07] MEDS: FUROSEMIDE 40 MG TAB PO (08:52)
[2017-11-07] MEDS: guaiFENesin ER 600 MG TAB PO ×2 (08:52→20:51)
[2017-11-07] MEDS: CARVedilol 12.5 MG TAB PO ×2 (08:52→20:51)
[2017-11-07] MEDS: SPIRONOLACTONE 25 MG TAB PO (09:00)
[2017-11-07] MEDS: MULTIVITAMINS/MINERALS THERAP 1 TAB PO (09:00)
[2017-11-07] MEDS: LISINOPRIL 20 MG TAB PO (09:00)
[2017-11-07] MEDS: ASPIRIN 81 MG ENTERIC TAB PO (09:00)
[2017-11-08] MEDS: HumaLOG INSULIN (NovoLOG) PER UNIT SC ×4 (07:30→21:00)
[2017-11-08] MEDS: metFORMIN (GLUCOPHAGE) 500 MG TAB PO ×2 (08:00→14:28)
[2017-11-08] MEDS: guaiFENesin ER 600 MG TAB PO ×2 (08:11→21:00)
[2017-11-08] MEDS: CARVedilol 12.5 MG TAB PO ×2 (08:11→21:00)
[2017-11-08] MEDS: FUROSEMIDE 40 MG TAB PO (09:00)
[2017-11-08] MEDS: ASPIRIN 81 MG ENTERIC TAB PO (09:10)
[2017-11-08] MEDS: MULTIVITAMINS/MINERALS THERAP 1 TAB PO (09:10)
[2017-11-08] MEDS: SPIRONOLACTONE 25 MG TAB PO (09:10)
[2017-11-08] MEDS: LISINOPRIL 20 MG TAB PO (09:10)
[2017-11-09] MEDS: CARVedilol 12.5 MG TAB PO ×2 (07:03→07:04)
[2017-11-09] MEDS: FUROSEMIDE 40 MG TAB PO (07:03)
[2017-11-09] MEDS: HumaLOG INSULIN (NovoLOG) PER UNIT SC ×4 (07:03→07:05)
[2017-11-09] MEDS: guaiFENesin ER 600 MG TAB PO ×2 (07:03→07:05)
[2017-11-09] MEDS: metFORMIN (GLUCOPHAGE) 500 MG TAB PO ×2 (07:03→07:04)
[2017-11-09] MEDS: LISINOPRIL 20 MG TAB PO (09:18)
[2017-11-09] MEDS: ASPIRIN 81 MG ENTERIC TAB PO (09:18)
[2017-11-09] MEDS: SPIRONOLACTONE 25 MG TAB PO (09:18)
[2017-11-09] MEDS: MULTIVITAMINS/MINERALS THERAP 1 TAB PO (09:19)
[2017-11-09] MEDS: CEPACOL LOZENGE PO ×2 (15:47→20:03)
[2017-11-10] MEDS: HumaLOG INSULIN (NovoLOG) PER UNIT SC ×4 (07:30→20:38)
[2017-11-10] MEDS: metFORMIN (GLUCOPHAGE) 500 MG TAB PO ×2 (07:35→17:19)
[2017-11-10] MEDS: guaiFENesin ER 600 MG TAB PO ×2 (07:36→20:38)
[2017-11-10] MEDS: CARVedilol 12.5 MG TAB PO ×2 (07:36→20:38)
[2017-11-10] MEDS: FUROSEMIDE 40 MG TAB PO (07:36)
[2017-11-10] MEDS: SPIRONOLACTONE 25 MG TAB PO (09:51)
[2017-11-10] MEDS: ASPIRIN 81 MG ENTERIC TAB PO (09:57)
[2017-11-10] MEDS: MULTIVITAMINS/MINERALS THERAP 1 TAB PO (09:57)
[2017-11-10] MEDS: LISINOPRIL 20 MG TAB PO (09:57)
[2017-11-11] MEDS: HumaLOG INSULIN (NovoLOG) PER UNIT SC ×4 (07:11→21:35)
[2017-11-11] MEDS: CARVedilol 12.5 MG TAB PO ×2 (07:11→21:34)
[2017-11-11] MEDS: metFORMIN (GLUCOPHAGE) 500 MG TAB PO ×2 (07:11→16:36)
[2017-11-11] MEDS: guaiFENesin ER 600 MG TAB PO ×2 (07:12→21:34)
[2017-11-11] MEDS: FUROSEMIDE 40 MG TAB PO (07:12)
[2017-11-11] MEDS: SPIRONOLACTONE 25 MG TAB PO (10:01)
[2017-11-11] MEDS: MULTIVITAMINS/MINERALS THERAP 1 TAB PO (10:01)
[2017-11-11] MEDS: ASPIRIN 81 MG ENTERIC TAB PO (10:01)
[2017-11-11] MEDS: LISINOPRIL 20 MG TAB PO (10:04)
[2017-11-12] MEDS: metFORMIN (GLUCOPHAGE) 500 MG TAB PO ×2 (07:07→16:33)
[2017-11-12] MEDS: CARVedilol 12.5 MG TAB PO ×2 (07:07→20:18)
[2017-11-12] MEDS: HumaLOG INSULIN (NovoLOG) PER UNIT SC ×4 (07:07→20:18)
[2017-11-12] MEDS: FUROSEMIDE 40 MG TAB PO ×2 (07:07→07:08)
[2017-11-12] MEDS: guaiFENesin ER 600 MG TAB PO ×2 (09:00→20:18)
[2017-11-12] MEDS: ASPIRIN 81 MG ENTERIC TAB PO (09:37)
[2017-11-12] MEDS: SPIRONOLACTONE 25 MG TAB PO (09:37)
[2017-11-12] MEDS: MULTIVITAMINS/MINERALS THERAP 1 TAB PO (09:37)
[2017-11-12] MEDS: LISINOPRIL 20 MG TAB PO (09:39)
[2017-11-13] MEDS: metFORMIN (GLUCOPHAGE) 500 MG TAB PO ×2 (07:19→14:48)
[2017-11-13] MEDS: HumaLOG INSULIN (NovoLOG) PER UNIT SC ×4 (07:19→20:06)
[2017-11-13] MEDS: guaiFENesin ER 600 MG TAB PO ×2 (09:00→20:06)
[2017-11-13] MEDS: FUROSEMIDE 40 MG TAB PO (09:00)
[2017-11-13] MEDS: CARVedilol 12.5 MG TAB PO ×2 (09:00→20:06)
[2017-11-13] MEDS: SPIRONOLACTONE 25 MG TAB PO (09:40)
[2017-11-13] MEDS: ASPIRIN 81 MG ENTERIC TAB PO (09:40)
[2017-11-13] MEDS: MULTIVITAMINS/MINERALS THERAP 1 TAB PO (09:40)
[2017-11-13] MEDS: LISINOPRIL 20 MG TAB PO (09:42)
[2017-11-14] MEDS: HumaLOG INSULIN (NovoLOG) PER UNIT SC ×4 (07:30→20:01)
[2017-11-14] MEDS: metFORMIN (GLUCOPHAGE) 500 MG TAB PO ×2 (08:00→18:00)
[2017-11-14] MEDS: FUROSEMIDE 40 MG TAB PO (09:00)
[2017-11-14] MEDS: CARVedilol 12.5 MG TAB PO ×2 (09:00→20:01)
[2017-11-14] MEDS: guaiFENesin ER 600 MG TAB PO ×2 (09:00→20:01)
[2017-11-14] MEDS: SPIRONOLACTONE 25 MG TAB PO (10:23)
[2017-11-14] MEDS: LISINOPRIL 20 MG TAB PO (10:23)
[2017-11-14] MEDS: ASPIRIN 81 MG ENTERIC TAB PO (10:23)
[2017-11-14] MEDS: MULTIVITAMINS/MINERALS THERAP 1 TAB PO (10:24)
[2017-11-15] MEDS: HumaLOG INSULIN (NovoLOG) PER UNIT SC ×4 (07:30→20:37)
[2017-11-15] MEDS: metFORMIN (GLUCOPHAGE) 500 MG TAB PO ×2 (07:45→16:50)
[2017-11-15] MEDS: CARVedilol 12.5 MG TAB PO ×2 (07:45→20:37)
[2017-11-15] MEDS: FUROSEMIDE 40 MG TAB PO (07:46)
[2017-11-15] MEDS: guaiFENesin ER 600 MG TAB PO ×2 (07:46→20:37)
[2017-11-15] MEDS: ASPIRIN 81 MG ENTERIC TAB PO (10:00)
[2017-11-15] MEDS: SPIRONOLACTONE 25 MG TAB PO (10:00)
[2017-11-15] MEDS: MULTIVITAMINS/MINERALS THERAP 1 TAB PO (10:00)
[2017-11-15] MEDS: LISINOPRIL 20 MG TAB PO (10:00)
[2017-11-16] MEDS: HumaLOG INSULIN (NovoLOG) PER UNIT SC ×4 (07:29→21:04)
[2017-11-16] MEDS: CARVedilol 12.5 MG TAB PO ×2 (07:29→21:04)
[2017-11-16] MEDS: FUROSEMIDE 40 MG TAB PO (07:29)
[2017-11-16] MEDS: metFORMIN (GLUCOPHAGE) 500 MG TAB PO ×2 (07:29→18:31)
[2017-11-16] MEDS: guaiFENesin ER 600 MG TAB PO ×2 (07:30→21:04)
[2017-11-16] MEDS: MULTIVITAMINS/MINERALS THERAP 1 TAB PO (09:01)
[2017-11-16] MEDS: LISINOPRIL 20 MG TAB PO (09:01)
[2017-11-16] MEDS: ASPIRIN 81 MG ENTERIC TAB PO (09:02)
[2017-11-16] MEDS: SPIRONOLACTONE 25 MG TAB PO (09:02)
[2017-11-17] MEDS: guaiFENesin ER 600 MG TAB PO ×2 (06:57→21:00)
[2017-11-17] MEDS: HumaLOG INSULIN (NovoLOG) PER UNIT SC ×4 (06:57→21:00)
[2017-11-17] MEDS: FUROSEMIDE 40 MG TAB PO (06:57)
[2017-11-17] MEDS: metFORMIN (GLUCOPHAGE) 500 MG TAB PO ×2 (06:57→17:36)
[2017-11-17] MEDS: CARVedilol 12.5 MG TAB PO ×2 (06:57→21:00)
[2017-11-17] MEDS: MULTIVITAMINS/MINERALS THERAP 1 TAB PO (09:06)
[2017-11-17] MEDS: ASPIRIN 81 MG ENTERIC TAB PO (09:06)
[2017-11-17] MEDS: LISINOPRIL 20 MG TAB PO (09:06)
[2017-11-17] MEDS: SPIRONOLACTONE 25 MG TAB PO (09:06)
[2017-11-17] MEDS: KETOCONAZOLE 2% CREAM TOP (19:00)
[2017-11-18] MEDS: HumaLOG INSULIN (NovoLOG) PER UNIT SC ×4 (07:30→20:26)
[2017-11-18] MEDS: metFORMIN (GLUCOPHAGE) 500 MG TAB PO ×2 (07:38→17:07)
[2017-11-18] MEDS: KETOCONAZOLE 2% CREAM TOP (07:39)
[2017-11-18] MEDS: FUROSEMIDE 40 MG TAB PO (07:39)
[2017-11-18] MEDS: CARVedilol 12.5 MG TAB PO ×2 (07:49→20:26)
[2017-11-18] MEDS: guaiFENesin ER 600 MG TAB PO ×2 (09:00→20:26)
[2017-11-18] MEDS: SPIRONOLACTONE 25 MG TAB PO (09:37)
[2017-11-18] MEDS: ASPIRIN 81 MG ENTERIC TAB PO (09:38)
[2017-11-18] MEDS: LISINOPRIL 20 MG TAB PO (09:38)
[2017-11-18] MEDS: MULTIVITAMINS/MINERALS THERAP 1 TAB PO (09:38)
[2017-11-19] MEDS: metFORMIN (GLUCOPHAGE) 500 MG TAB PO ×2 (07:06→16:41)
[2017-11-19] MEDS: HumaLOG INSULIN (NovoLOG) PER UNIT SC ×4 (07:06→19:54)
[2017-11-19] MEDS: CARVedilol 12.5 MG TAB PO ×2 (08:32→19:54)
[2017-11-19] MEDS: guaiFENesin ER 600 MG TAB PO ×2 (08:32→19:54)
[2017-11-19] MEDS: KETOCONAZOLE 2% CREAM TOP (09:00)
[2017-11-19] MEDS: FUROSEMIDE 40 MG TAB PO (09:00)
[2017-11-19] MEDS: SPIRONOLACTONE 25 MG TAB PO (09:13)
[2017-11-19] MEDS: ASPIRIN 81 MG ENTERIC TAB PO (09:13)
[2017-11-19] MEDS: LISINOPRIL 20 MG TAB PO (09:13)
[2017-11-19] MEDS: MULTIVITAMINS/MINERALS THERAP 1 TAB PO (09:14)
[2017-11-20] MEDS: HumaLOG INSULIN (NovoLOG) PER UNIT SC ×4 (07:07→20:56)
[2017-11-20] MEDS: metFORMIN (GLUCOPHAGE) 500 MG TAB PO ×2 (07:07→16:17)
[2017-11-20] MEDS: FUROSEMIDE 40 MG TAB PO (09:00)
[2017-11-20] MEDS: KETOCONAZOLE 2% CREAM TOP (09:00)
[2017-11-20] MEDS: CARVedilol 12.5 MG TAB PO ×2 (09:00→20:56)
[2017-11-20] MEDS: guaiFENesin ER 600 MG TAB PO ×2 (09:00→20:56)
[2017-11-20] MEDS: SPIRONOLACTONE 25 MG TAB PO (09:39)
[2017-11-20] MEDS: MULTIVITAMINS/MINERALS THERAP 1 TAB PO (09:39)
[2017-11-20] MEDS: ASPIRIN 81 MG ENTERIC TAB PO (09:39)
[2017-11-20] MEDS: LISINOPRIL 20 MG TAB PO (09:41)
[2017-11-21] MEDS: HumaLOG INSULIN (NovoLOG) PER UNIT SC ×4 (07:30→19:56)
[2017-11-21] MEDS: metFORMIN (GLUCOPHAGE) 500 MG TAB PO ×2 (07:45→16:47)
[2017-11-21] MEDS: guaiFENesin ER 600 MG TAB PO ×2 (07:46→19:56)
[2017-11-21] MEDS: KETOCONAZOLE 2% CREAM TOP (07:47)
[2017-11-21] MEDS: CARVedilol 12.5 MG TAB PO ×2 (09:00→19:56)
[2017-11-21] MEDS: FUROSEMIDE 40 MG TAB PO (09:00)
[2017-11-21] MEDS: LISINOPRIL 20 MG TAB PO (09:13)
[2017-11-21] MEDS: SPIRONOLACTONE 25 MG TAB PO (09:13)
[2017-11-21] MEDS: ASPIRIN 81 MG ENTERIC TAB PO (09:13)
[2017-11-21] MEDS: MULTIVITAMINS/MINERALS THERAP 1 TAB PO (09:14)
[2017-11-22] MEDS: HumaLOG INSULIN (NovoLOG) PER UNIT SC ×4 (07:28→19:56)
[2017-11-22] MEDS: metFORMIN (GLUCOPHAGE) 500 MG TAB PO ×2 (07:29→17:47)
[2017-11-22] MEDS: CARVedilol 12.5 MG TAB PO ×2 (09:19→19:56)
[2017-11-22] MEDS: guaiFENesin ER 600 MG TAB PO ×2 (09:19→19:56)
[2017-11-22] MEDS: KETOCONAZOLE 2% CREAM TOP (09:23)
[2017-11-22] MEDS: FUROSEMIDE 40 MG TAB PO (09:23)
[2017-11-22] MEDS: SPIRONOLACTONE 25 MG TAB PO (09:51)
[2017-11-22] MEDS: MULTIVITAMINS/MINERALS THERAP 1 TAB PO (09:51)
[2017-11-22] MEDS: ASPIRIN 81 MG ENTERIC TAB PO (09:51)
[2017-11-22] MEDS: LISINOPRIL 20 MG TAB PO (09:52)
[2017-11-23] MEDS: HumaLOG INSULIN (NovoLOG) PER UNIT SC ×4 (07:28→21:00)
[2017-11-23] MEDS: metFORMIN (GLUCOPHAGE) 500 MG TAB PO ×2 (07:28→17:05)
[2017-11-23] MEDS: KETOCONAZOLE 2% CREAM TOP (07:29)
[2017-11-23] MEDS: CARVedilol 12.5 MG TAB PO ×2 (07:29→21:00)
[2017-11-23] MEDS: ASPIRIN 81 MG ENTERIC TAB PO (09:00)
[2017-11-23] MEDS: LISINOPRIL 20 MG TAB PO (09:00)
[2017-11-23] MEDS: FUROSEMIDE 40 MG TAB PO (09:00)
[2017-11-23] MEDS: SPIRONOLACTONE 25 MG TAB PO (09:00)
[2017-11-23] MEDS: guaiFENesin ER 600 MG TAB PO ×2 (09:00→21:00)
[2017-11-23] MEDS: MULTIVITAMINS/MINERALS THERAP 1 TAB PO (09:00)
[2017-11-24] MEDS: HumaLOG INSULIN (NovoLOG) PER UNIT SC ×4 (06:59→21:00)
[2017-11-24] MEDS: CARVedilol 12.5 MG TAB PO ×2 (07:00→21:00)
[2017-11-24] MEDS: metFORMIN (GLUCOPHAGE) 500 MG TAB PO ×2 (07:00→13:31)
[2017-11-24] MEDS: KETOCONAZOLE 2% CREAM TOP (07:00)
[2017-11-24] MEDS: FUROSEMIDE 40 MG TAB PO (09:00)
[2017-11-24] MEDS: guaiFENesin ER 600 MG TAB PO ×2 (09:00→21:00)
[2017-11-24] MEDS: LISINOPRIL 20 MG TAB PO (09:22)
[2017-11-24] MEDS: MULTIVITAMINS/MINERALS THERAP 1 TAB PO (09:22)
[2017-11-24] MEDS: SPIRONOLACTONE 25 MG TAB PO (09:22)
[2017-11-24] MEDS: ASPIRIN 81 MG ENTERIC TAB PO (09:22)
[2017-11-25] MEDS: HumaLOG INSULIN (NovoLOG) PER UNIT SC ×4 (07:10→20:00)
[2017-11-25] MEDS: metFORMIN (GLUCOPHAGE) 500 MG TAB PO ×2 (07:11→16:57)
[2017-11-25] MEDS: CARVedilol 12.5 MG TAB PO ×2 (07:11→20:00)
[2017-11-25] MEDS: guaiFENesin ER 600 MG TAB PO ×2 (07:11→20:00)
[2017-11-25] MEDS: LISINOPRIL 20 MG TAB PO (09:00)
[2017-11-25] MEDS: ASPIRIN 81 MG ENTERIC TAB PO (09:00)
[2017-11-25] MEDS: MULTIVITAMINS/MINERALS THERAP 1 TAB PO (09:36)
[2017-11-25] MEDS: SPIRONOLACTONE 25 MG TAB PO (09:36)
[2017-11-26] MEDS: metFORMIN (GLUCOPHAGE) 500 MG TAB PO ×2 (06:58→15:04)
[2017-11-26] MEDS: HumaLOG INSULIN (NovoLOG) PER UNIT SC ×4 (06:58→19:59)
[2017-11-26] MEDS: CARVedilol 12.5 MG TAB PO ×2 (06:58→19:58)
[2017-11-26] MEDS: guaiFENesin ER 600 MG TAB PO ×2 (06:59→19:59)
[2017-11-26] MEDS: SPIRONOLACTONE 25 MG TAB PO (09:10)
[2017-11-26] MEDS: ASPIRIN 81 MG ENTERIC TAB PO (09:11)
[2017-11-26] MEDS: LISINOPRIL 20 MG TAB PO (09:11)
[2017-11-26] MEDS: MULTIVITAMINS/MINERALS THERAP 1 TAB PO (09:11)
[2017-11-27] MEDS: HumaLOG INSULIN (NovoLOG) PER UNIT SC ×4 (07:30→19:58)
[2017-11-27] MEDS: metFORMIN (GLUCOPHAGE) 500 MG TAB PO ×2 (08:00→17:36)
[2017-11-27] MEDS: guaiFENesin ER 600 MG TAB PO ×2 (08:33→19:58)
[2017-11-27] MEDS: CARVedilol 12.5 MG TAB PO ×2 (08:33→19:58)
[2017-11-27] MEDS: MULTIVITAMINS/MINERALS THERAP 1 TAB PO (09:55)
[2017-11-27] MEDS: ASPIRIN 81 MG ENTERIC TAB PO (09:55)
[2017-11-27] MEDS: SPIRONOLACTONE 25 MG TAB PO (09:55)
[2017-11-27] MEDS: LISINOPRIL 20 MG TAB PO (09:55)
[2017-11-28] MEDS: ASPIRIN 81 MG ENTERIC TAB PO (09:42)
[2017-11-28] MEDS: SPIRONOLACTONE 25 MG TAB PO (09:42)
[2017-11-28] MEDS: LISINOPRIL 20 MG TAB PO (09:42)
[2017-11-28] MEDS: MULTIVITAMINS/MINERALS THERAP 1 TAB PO (09:43)
[2017-11-28] MEDS: HumaLOG INSULIN (NovoLOG) PER UNIT SC ×4 (09:43→21:00)
[2017-11-28] MEDS: metFORMIN (GLUCOPHAGE) 500 MG TAB PO ×2 (09:43→16:50)
[2017-11-28] MEDS: CARVedilol 12.5 MG TAB PO ×2 (09:44→21:00)
[2017-11-28] MEDS: guaiFENesin ER 600 MG TAB PO ×2 (09:44→21:00)
[2017-11-29] MEDS: HumaLOG INSULIN (NovoLOG) PER UNIT SC ×4 (07:30→21:00)
[2017-11-29] MEDS: metFORMIN (GLUCOPHAGE) 500 MG TAB PO ×2 (08:00→16:04)
[2017-11-29] MEDS: guaiFENesin ER 600 MG TAB PO ×2 (09:00→21:00)
[2017-11-29] MEDS: CARVedilol 12.5 MG TAB PO ×2 (09:00→16:04)
[2017-11-29] MEDS: MULTIVITAMINS/MINERALS THERAP 1 TAB PO (10:15)
[2017-11-29] MEDS: LISINOPRIL 20 MG TAB PO (10:18)
[2017-11-29] MEDS: ASPIRIN 81 MG ENTERIC TAB PO (10:20)
[2017-11-29] MEDS: SPIRONOLACTONE 25 MG TAB PO (10:20)
[2017-11-30] MEDS: HumaLOG INSULIN (NovoLOG) PER UNIT SC ×4 (07:28→21:00)
[2017-11-30] MEDS: guaiFENesin ER 600 MG TAB PO ×2 (07:29→21:00)
[2017-11-30] MEDS: metFORMIN (GLUCOPHAGE) 500 MG TAB PO ×2 (07:29→10:26)
[2017-11-30] MEDS: CARVedilol 12.5 MG TAB PO ×2 (07:29→21:00)
[2017-11-30] MEDS: SPIRONOLACTONE 25 MG TAB PO (10:22)
[2017-11-30] MEDS: ASPIRIN 81 MG ENTERIC TAB PO (10:25)
[2017-11-30] MEDS: LISINOPRIL 20 MG TAB PO (10:25)
[2017-11-30] MEDS: MULTIVITAMINS/MINERALS THERAP 1 TAB PO (10:25)
[2017-12-01] MEDS: HumaLOG INSULIN (NovoLOG) PER UNIT SC ×4 (07:30→21:00)
[2017-12-01] MEDS: metFORMIN (GLUCOPHAGE) 500 MG TAB PO ×2 (08:00→17:31)
[2017-12-01] MEDS: CARVedilol 12.5 MG TAB PO ×2 (08:17→21:00)
[2017-12-01] MEDS: guaiFENesin ER 600 MG TAB PO ×2 (08:18→21:00)
[2017-12-01] MEDS: LISINOPRIL 20 MG TAB PO (10:05)
[2017-12-01] MEDS: SPIRONOLACTONE 25 MG TAB PO (10:06)
[2017-12-01] MEDS: ASPIRIN 81 MG ENTERIC TAB PO (10:06)
[2017-12-01] MEDS: MULTIVITAMINS/MINERALS THERAP 1 TAB PO (10:06)
[2017-12-02] MEDS: metFORMIN (GLUCOPHAGE) 500 MG TAB PO ×2 (07:18→17:08)
[2017-12-02] MEDS: HumaLOG INSULIN (NovoLOG) PER UNIT SC ×4 (07:18→21:00)
[2017-12-02] MEDS: CARVedilol 12.5 MG TAB PO ×2 (09:00→21:00)
[2017-12-02] MEDS: guaiFENesin ER 600 MG TAB PO ×2 (09:00→21:00)
[2017-12-02] MEDS: LISINOPRIL 20 MG TAB PO (10:08)
[2017-12-02] MEDS: SPIRONOLACTONE 25 MG TAB PO (10:09)
[2017-12-02] MEDS: MULTIVITAMINS/MINERALS THERAP 1 TAB PO (10:09)
[2017-12-02] MEDS: ASPIRIN 81 MG ENTERIC TAB PO (10:09)
[2017-12-03] MEDS: metFORMIN (GLUCOPHAGE) 500 MG TAB PO ×2 (07:42→17:11)
[2017-12-03] MEDS: HumaLOG INSULIN (NovoLOG) PER UNIT SC ×4 (07:42→20:22)
[2017-12-03] MEDS: CARVedilol 12.5 MG TAB PO ×2 (09:12→20:21)
[2017-12-03] MEDS: guaiFENesin ER 600 MG TAB PO ×2 (09:13→20:21)
[2017-12-03] MEDS: MULTIVITAMINS/MINERALS THERAP 1 TAB PO (09:33)
[2017-12-03] MEDS: SPIRONOLACTONE 25 MG TAB PO (09:33)
[2017-12-03] MEDS: ASPIRIN 81 MG ENTERIC TAB PO (09:33)
[2017-12-03] MEDS: LISINOPRIL 20 MG TAB PO (09:33)
[2017-12-04] MEDS: HumaLOG INSULIN (NovoLOG) PER UNIT SC ×4 (07:53→20:22)
[2017-12-04] MEDS: metFORMIN (GLUCOPHAGE) 500 MG TAB PO ×2 (07:53→17:19)
[2017-12-04] MEDS: CARVedilol 12.5 MG TAB PO ×2 (09:21→20:22)
[2017-12-04] MEDS: guaiFENesin ER 600 MG TAB PO ×2 (09:21→20:22)
[2017-12-04] MEDS: ASPIRIN 81 MG ENTERIC TAB PO (09:43)
[2017-12-04] MEDS: LISINOPRIL 20 MG TAB PO (09:43)
[2017-12-04] MEDS: SPIRONOLACTONE 25 MG TAB PO (09:43)
[2017-12-04] MEDS: MULTIVITAMINS/MINERALS THERAP 1 TAB PO (09:43)
[2017-12-05] MEDS: HumaLOG INSULIN (NovoLOG) PER UNIT SC ×4 (07:30→19:36)
[2017-12-05] MEDS: metFORMIN (GLUCOPHAGE) 500 MG TAB PO ×2 (07:51→18:50)
[2017-12-05] MEDS: CARVedilol 12.5 MG TAB PO ×2 (07:51→19:35)
[2017-12-05] MEDS: guaiFENesin ER 600 MG TAB PO ×2 (07:52→19:35)
[2017-12-05] MEDS: SPIRONOLACTONE 25 MG TAB PO (10:05)
[2017-12-05] MEDS: ASPIRIN 81 MG ENTERIC TAB PO (10:05)
[2017-12-05] MEDS: MULTIVITAMINS/MINERALS THERAP 1 TAB PO (10:05)
[2017-12-05] MEDS: LISINOPRIL 20 MG TAB PO (10:07)
[2017-12-06] MEDS: HumaLOG INSULIN (NovoLOG) PER UNIT SC ×4 (07:30→21:00)
[2017-12-06] MEDS: metFORMIN (GLUCOPHAGE) 500 MG TAB PO ×2 (08:00→17:45)
[2017-12-06] MEDS: CARVedilol 12.5 MG TAB PO ×2 (08:01→21:00)
[2017-12-06] MEDS: guaiFENesin ER 600 MG TAB PO ×2 (08:02→21:00)
[2017-12-06] MEDS: LISINOPRIL 20 MG TAB PO (10:16)
[2017-12-06] MEDS: SPIRONOLACTONE 25 MG TAB PO (10:17)
[2017-12-06] MEDS: ASPIRIN 81 MG ENTERIC TAB PO (10:17)
[2017-12-06] MEDS: MULTIVITAMINS/MINERALS THERAP 1 TAB PO (10:17)
[2017-12-07] MEDS: HumaLOG INSULIN (NovoLOG) PER UNIT SC ×4 (07:30→20:27)
[2017-12-07] MEDS: guaiFENesin ER 600 MG TAB PO ×2 (07:47→20:27)
[2017-12-07] MEDS: metFORMIN (GLUCOPHAGE) 500 MG TAB PO ×2 (07:47→17:36)
[2017-12-07] MEDS: CARVedilol 12.5 MG TAB PO ×2 (07:47→20:27)
[2017-12-07] MEDS: MULTIVITAMINS/MINERALS THERAP 1 TAB PO (10:30)
[2017-12-07] MEDS: LISINOPRIL 20 MG TAB PO (10:30)
[2017-12-07] MEDS: ASPIRIN 81 MG ENTERIC TAB PO (10:30)
[2017-12-07] MEDS: SPIRONOLACTONE 25 MG TAB PO (10:30)
[2017-12-08] MEDS: HumaLOG INSULIN (NovoLOG) PER UNIT SC ×4 (07:30→20:10)
[2017-12-08] MEDS: metFORMIN (GLUCOPHAGE) 500 MG TAB PO ×2 (07:42→18:00)
[2017-12-08] MEDS: guaiFENesin ER 600 MG TAB PO ×2 (07:42→20:10)
[2017-12-08] MEDS: CARVedilol 12.5 MG TAB PO ×2 (07:42→20:10)
[2017-12-08] MEDS: ASPIRIN 81 MG ENTERIC TAB PO (09:54)
[2017-12-08] MEDS: LISINOPRIL 20 MG TAB PO (09:54)
[2017-12-08] MEDS: MULTIVITAMINS/MINERALS THERAP 1 TAB PO (09:54)
[2017-12-08] MEDS: SPIRONOLACTONE 25 MG TAB PO (09:54)
[2017-12-09] MEDS: metFORMIN (GLUCOPHAGE) 500 MG TAB PO ×2 (07:17→15:54)
[2017-12-09] MEDS: HumaLOG INSULIN (NovoLOG) PER UNIT SC ×4 (07:17→21:00)
[2017-12-09] MEDS: CARVedilol 12.5 MG TAB PO ×2 (07:17→21:00)
[2017-12-09] MEDS: guaiFENesin ER 600 MG TAB PO ×2 (07:17→21:00)
[2017-12-09] MEDS: LISINOPRIL 20 MG TAB PO (10:11)
[2017-12-09] MEDS: MULTIVITAMINS/MINERALS THERAP 1 TAB PO (10:11)
[2017-12-09] MEDS: SPIRONOLACTONE 25 MG TAB PO (10:11)
[2017-12-09] MEDS: ASPIRIN 81 MG ENTERIC TAB PO (10:11)
[2017-12-10] MEDS: HumaLOG INSULIN (NovoLOG) PER UNIT SC ×4 (07:30→21:00)
[2017-12-10] MEDS: metFORMIN (GLUCOPHAGE) 500 MG TAB PO ×2 (07:32→14:16)
[2017-12-10] MEDS: CARVedilol 12.5 MG TAB PO ×2 (07:32→21:00)
[2017-12-10] MEDS: guaiFENesin ER 600 MG TAB PO ×2 (07:35→21:00)
[2017-12-10] MEDS: LISINOPRIL 20 MG TAB PO (09:00)
[2017-12-10] MEDS: ASPIRIN 81 MG ENTERIC TAB PO (09:00)
[2017-12-10] MEDS: MULTIVITAMINS/MINERALS THERAP 1 TAB PO (09:39)
[2017-12-10] MEDS: SPIRONOLACTONE 25 MG TAB PO (09:39)
[2017-12-11] MEDS: HumaLOG INSULIN (NovoLOG) PER UNIT SC ×4 (07:30→21:00)
[2017-12-11] MEDS: metFORMIN (GLUCOPHAGE) 500 MG TAB PO ×2 (07:33→12:41)
[2017-12-11] MEDS: CARVedilol 12.5 MG TAB PO ×2 (07:34→21:00)
[2017-12-11] MEDS: guaiFENesin ER 600 MG TAB PO ×2 (07:34→21:00)
[2017-12-11] MEDS: MULTIVITAMINS/MINERALS THERAP 1 TAB PO (08:44)
[2017-12-11] MEDS: ASPIRIN 81 MG ENTERIC TAB PO (08:44)
[2017-12-11] MEDS: LISINOPRIL 20 MG TAB PO (08:44)
[2017-12-11] MEDS: SPIRONOLACTONE 25 MG TAB PO (08:44)
[2017-12-12] MEDS: HumaLOG INSULIN (NovoLOG) PER UNIT SC ×4 (07:39→20:57)
[2017-12-12] MEDS: CARVedilol 12.5 MG TAB PO ×2 (07:39→20:56)
[2017-12-12] MEDS: metFORMIN (GLUCOPHAGE) 500 MG TAB PO ×2 (07:39→16:09)
[2017-12-12] MEDS: guaiFENesin ER 600 MG TAB PO ×2 (07:39→20:56)
[2017-12-12] MEDS: ASPIRIN 81 MG ENTERIC TAB PO (09:59)
[2017-12-12] MEDS: SPIRONOLACTONE 25 MG TAB PO (09:59)
[2017-12-12] MEDS: LISINOPRIL 20 MG TAB PO (09:59)
[2017-12-12] MEDS: MULTIVITAMINS/MINERALS THERAP 1 TAB PO (09:59)
[2017-12-13] MEDS: HumaLOG INSULIN (NovoLOG) PER UNIT SC ×4 (07:30→21:00)
[2017-12-13] MEDS: metFORMIN (GLUCOPHAGE) 500 MG TAB PO ×2 (08:00→17:03)
[2017-12-13] MEDS: LISINOPRIL 20 MG TAB PO (09:00)
[2017-12-13] MEDS: MULTIVITAMINS/MINERALS THERAP 1 TAB PO (09:00)
[2017-12-13] MEDS: CARVedilol 12.5 MG TAB PO ×2 (09:00→21:00)
[2017-12-13] MEDS: guaiFENesin ER 600 MG TAB PO ×2 (09:00→21:00)
[2017-12-13] MEDS: SPIRONOLACTONE 25 MG TAB PO (09:00)
[2017-12-13] MEDS: ASPIRIN 81 MG ENTERIC TAB PO (09:00)
[2017-12-14] MEDS: metFORMIN (GLUCOPHAGE) 500 MG TAB PO ×2 (07:16→14:09)
[2017-12-14] MEDS: HumaLOG INSULIN (NovoLOG) PER UNIT SC ×4 (07:16→21:00)
[2017-12-14] MEDS: CARVedilol 12.5 MG TAB PO ×2 (07:17→21:00)
[2017-12-14] MEDS: guaiFENesin ER 600 MG TAB PO ×2 (07:17→21:00)
[2017-12-14] MEDS: LISINOPRIL 20 MG TAB PO (09:00)
[2017-12-14] MEDS: SPIRONOLACTONE 25 MG TAB PO (09:43)
[2017-12-14] MEDS: MULTIVITAMINS/MINERALS THERAP 1 TAB PO (09:43)
[2017-12-14] MEDS: ASPIRIN 81 MG ENTERIC TAB PO (09:43)
[2017-12-15] MEDS: HumaLOG INSULIN (NovoLOG) PER UNIT SC ×4 (07:30→21:00)
[2017-12-15] MEDS: metFORMIN (GLUCOPHAGE) 500 MG TAB PO ×2 (07:50→11:46)
[2017-12-15] MEDS: guaiFENesin ER 600 MG TAB PO ×2 (07:50→21:00)
[2017-12-15] MEDS: CARVedilol 12.5 MG TAB PO ×2 (07:50→21:00)
[2017-12-15] MEDS: ASPIRIN 81 MG ENTERIC TAB PO (09:00)
[2017-12-15] MEDS: LISINOPRIL 20 MG TAB PO (09:00)
[2017-12-15] MEDS: SPIRONOLACTONE 25 MG TAB PO (09:00)
[2017-12-15] MEDS: MULTIVITAMINS/MINERALS THERAP 1 TAB PO (09:00)
[2017-12-16] MEDS: HumaLOG INSULIN (NovoLOG) PER UNIT SC ×4 (07:25→20:40)
[2017-12-16] MEDS: metFORMIN (GLUCOPHAGE) 500 MG TAB PO ×2 (07:25→10:09)
[2017-12-16] MEDS: guaiFENesin ER 600 MG TAB PO ×2 (07:26→20:39)
[2017-12-16] MEDS: CARVedilol 12.5 MG TAB PO ×2 (07:26→20:39)
[2017-12-16] MEDS: ASPIRIN 81 MG ENTERIC TAB PO (09:00)
[2017-12-16] MEDS: MULTIVITAMINS/MINERALS THERAP 1 TAB PO (09:00)
[2017-12-16] MEDS: SPIRONOLACTONE 25 MG TAB PO (09:00)
[2017-12-16] MEDS: LISINOPRIL 20 MG TAB PO (09:00)
[2017-12-17] MEDS: metFORMIN (GLUCOPHAGE) 500 MG TAB PO ×3 (07:30→12:39)
[2017-12-17] MEDS: CARVedilol 12.5 MG TAB PO ×2 (07:30→12:38)
[2017-12-17] MEDS: HumaLOG INSULIN (NovoLOG) PER UNIT SC ×4 (07:30→12:38)
[2017-12-17] MEDS: guaiFENesin ER 600 MG TAB PO ×2 (07:31→12:38)
[2017-12-17] MEDS: ASPIRIN 81 MG ENTERIC TAB PO (09:37)
[2017-12-17] MEDS: SPIRONOLACTONE 25 MG TAB PO (09:37)
[2017-12-17] MEDS: MULTIVITAMINS/MINERALS THERAP 1 TAB PO (09:38)
[2017-12-17] MEDS: LISINOPRIL 20 MG TAB PO (09:38)
[2017-12-18] MEDS: HumaLOG INSULIN (NovoLOG) PER UNIT SC ×4 (07:30→19:59)
[2017-12-18] MEDS: guaiFENesin ER 600 MG TAB PO ×2 (09:45→19:58)
[2017-12-18] MEDS: MULTIVITAMINS/MINERALS THERAP 1 TAB PO (09:45)
[2017-12-18] MEDS: SPIRONOLACTONE 25 MG TAB PO (09:45)
[2017-12-18] MEDS: LISINOPRIL 20 MG TAB PO (09:45)
[2017-12-18] MEDS: ASPIRIN 81 MG ENTERIC TAB PO (09:45)
[2017-12-18] MEDS: CARVedilol 12.5 MG TAB PO ×2 (09:45→19:58)
[2017-12-18] MEDS: metFORMIN (GLUCOPHAGE) 500 MG TAB PO (12:10)
[2017-12-19] MEDS: HumaLOG INSULIN (NovoLOG) PER UNIT SC ×4 (07:30→19:40)
[2017-12-19] MEDS: metFORMIN (GLUCOPHAGE) 500 MG TAB PO ×2 (08:00→17:45)
[2017-12-19] MEDS: guaiFENesin ER 600 MG TAB PO ×2 (09:00→19:40)
[2017-12-19] MEDS: CARVedilol 12.5 MG TAB PO ×2 (09:00→19:40)
[2017-12-19] MEDS: LISINOPRIL 20 MG TAB PO (09:10)
[2017-12-19] MEDS: MULTIVITAMINS/MINERALS THERAP 1 TAB PO (09:10)
[2017-12-19] MEDS: ASPIRIN 81 MG ENTERIC TAB PO (09:11)
[2017-12-19] MEDS: SPIRONOLACTONE 25 MG TAB PO (09:11)
[2017-12-20] MEDS: HumaLOG INSULIN (NovoLOG) PER UNIT SC ×4 (07:30→20:30)
[2017-12-20] MEDS: metFORMIN (GLUCOPHAGE) 500 MG TAB PO ×2 (08:00→18:00)
[2017-12-20] MEDS: CARVedilol 12.5 MG TAB PO ×2 (09:00→20:30)
[2017-12-20] MEDS: guaiFENesin ER 600 MG TAB PO ×2 (09:00→20:30)
[2017-12-20] MEDS: ASPIRIN 81 MG ENTERIC TAB PO (11:07)
[2017-12-20] MEDS: LISINOPRIL 20 MG TAB PO (11:07)
[2017-12-20] MEDS: SPIRONOLACTONE 25 MG TAB PO (11:07)
[2017-12-20] MEDS: MULTIVITAMINS/MINERALS THERAP 1 TAB PO (11:07)
[2017-12-21] MEDS: CARVedilol 12.5 MG TAB PO (07:28)
[2017-12-21] MEDS: metFORMIN (GLUCOPHAGE) 500 MG TAB PO ×2 (07:28→14:56)
[2017-12-21] MEDS: HumaLOG INSULIN (NovoLOG) PER UNIT SC ×4 (07:28→21:00)
[2017-12-21] MEDS: guaiFENesin ER 600 MG TAB PO ×2 (07:29→21:00)
[2017-12-21] MEDS: LISINOPRIL 20 MG TAB PO (09:00)
[2017-12-21] MEDS: SPIRONOLACTONE 25 MG TAB PO (09:46)
[2017-12-21] MEDS: MULTIVITAMINS/MINERALS THERAP 1 TAB PO (09:47)
[2017-12-21] MEDS: ASPIRIN 81 MG ENTERIC TAB PO (09:47)
[2017-12-22] MEDS: metFORMIN (GLUCOPHAGE) 500 MG TAB PO ×2 (07:17→15:26)
[2017-12-22] MEDS: HumaLOG INSULIN (NovoLOG) PER UNIT SC ×4 (07:17→20:03)
[2017-12-22] MEDS: guaiFENesin ER 600 MG TAB PO ×2 (07:17→20:03)
[2017-12-22] MEDS: ASPIRIN 81 MG ENTERIC TAB PO (09:00)
[2017-12-22] MEDS: LISINOPRIL 20 MG TAB PO (09:48)
[2017-12-22] MEDS: SPIRONOLACTONE 25 MG TAB PO (09:48)
[2017-12-22] MEDS: MULTIVITAMINS/MINERALS THERAP 1 TAB PO (09:48)
[2017-12-23] MEDS: HumaLOG INSULIN (NovoLOG) PER UNIT SC ×4 (07:30→20:13)
[2017-12-23] MEDS: metFORMIN (GLUCOPHAGE) 500 MG TAB PO ×2 (07:47→18:00)
[2017-12-23] MEDS: MULTIVITAMINS/MINERALS THERAP 1 TAB PO (09:00)
[2017-12-23] MEDS: SPIRONOLACTONE 25 MG TAB PO (09:00)
[2017-12-23] MEDS: guaiFENesin ER 600 MG TAB PO ×2 (09:00→20:12)
[2017-12-23] MEDS: ASPIRIN 81 MG ENTERIC TAB PO (09:00)
[2017-12-23] MEDS: LISINOPRIL 20 MG TAB PO (09:00)
[2017-12-24] MEDS: metFORMIN (GLUCOPHAGE) 500 MG TAB PO ×2 (07:12→10:42)
[2017-12-24] MEDS: guaiFENesin ER 600 MG TAB PO ×2 (07:12→20:00)
[2017-12-24] MEDS: HumaLOG INSULIN (NovoLOG) PER UNIT SC ×4 (07:12→20:00)
[2017-12-24] MEDS: LISINOPRIL 20 MG TAB PO (09:00)
[2017-12-24] MEDS: MULTIVITAMINS/MINERALS THERAP 1 TAB PO (09:00)
[2017-12-24] MEDS: ASPIRIN 81 MG ENTERIC TAB PO (09:00)
[2017-12-24] MEDS: SPIRONOLACTONE 25 MG TAB PO (09:00)
[2017-12-25] MEDS: metFORMIN (GLUCOPHAGE) 500 MG TAB PO ×2 (07:24→07:30)
[2017-12-25] MEDS: HumaLOG INSULIN (NovoLOG) PER UNIT SC ×5 (07:24→07:31)
[2017-12-25] MEDS: guaiFENesin ER 600 MG TAB PO ×2 (07:30→07:31)
[2017-12-25] MEDS: ASPIRIN 81 MG ENTERIC TAB PO (09:20)
[2017-12-25] MEDS: LISINOPRIL 20 MG TAB PO (09:20)
[2017-12-25] MEDS: MULTIVITAMINS/MINERALS THERAP 1 TAB PO (09:20)
[2017-12-25] MEDS: SPIRONOLACTONE 25 MG TAB PO (09:20)
[2017-12-26] MEDS: metFORMIN (GLUCOPHAGE) 500 MG TAB PO ×2 (07:26→09:00)
[2017-12-26] MEDS: HumaLOG INSULIN (NovoLOG) PER UNIT SC ×3 (07:26→07:27)
[2017-12-26] MEDS: guaiFENesin ER 600 MG TAB PO ×2 (07:26→07:27)
[2017-12-26] MEDS: LISINOPRIL 20 MG TAB PO (09:00)
[2017-12-26] MEDS: SPIRONOLACTONE 25 MG TAB PO (09:00)
[2017-12-26] MEDS: ASPIRIN 81 MG ENTERIC TAB PO (09:00)
[2017-12-26] MEDS: MULTIVITAMINS/MINERALS THERAP 1 TAB PO (09:00)
[2017-12-27] MEDS: HumaLOG INSULIN (NovoLOG) PER UNIT SC ×4 (07:30→20:54)
[2017-12-27] MEDS: guaiFENesin ER 600 MG TAB PO ×2 (07:50→20:54)
[2017-12-27] MEDS: metFORMIN (GLUCOPHAGE) 500 MG TAB PO ×2 (07:50→18:00)
[2017-12-27] MEDS: ASPIRIN 81 MG ENTERIC TAB PO (09:43)
[2017-12-27] MEDS: SPIRONOLACTONE 25 MG TAB PO (09:43)
[2017-12-27] MEDS: LISINOPRIL 20 MG TAB PO (09:44)
[2017-12-27] MEDS: MULTIVITAMINS/MINERALS THERAP 1 TAB PO (09:44)
[2017-12-28] MEDS: HumaLOG INSULIN (NovoLOG) PER UNIT SC ×4 (07:30→20:49)
[2017-12-28] MEDS: metFORMIN (GLUCOPHAGE) 500 MG TAB PO ×2 (07:37→11:24)
[2017-12-28] MEDS: guaiFENesin ER 600 MG TAB PO ×2 (07:38→20:49)
[2017-12-28] MEDS: SPIRONOLACTONE 25 MG TAB PO (09:50)
[2017-12-28] MEDS: LISINOPRIL 20 MG TAB PO (09:50)
[2017-12-28] MEDS: ASPIRIN 81 MG ENTERIC TAB PO (09:50)
[2017-12-28] MEDS: MULTIVITAMINS/MINERALS THERAP 1 TAB PO (09:50)
[2017-12-29] MEDS: HumaLOG INSULIN (NovoLOG) PER UNIT SC ×4 (08:32→20:26)
[2017-12-29] MEDS: metFORMIN (GLUCOPHAGE) 500 MG TAB PO ×2 (08:33→08:49)
[2017-12-29] MEDS: guaiFENesin ER 600 MG TAB PO ×2 (08:33→20:26)
[2017-12-29] MEDS: MULTIVITAMINS/MINERALS THERAP 1 TAB PO (08:40)
[2017-12-29] MEDS: ASPIRIN 81 MG ENTERIC TAB PO (08:40)
[2017-12-29] MEDS: LISINOPRIL 20 MG TAB PO (08:41)
[2017-12-29] MEDS: SPIRONOLACTONE 25 MG TAB PO (08:41)
[2017-12-30] MEDS: HumaLOG INSULIN (NovoLOG) PER UNIT SC ×5 (07:30→09:14)
[2017-12-30] MEDS: metFORMIN (GLUCOPHAGE) 500 MG TAB PO ×3 (07:32→09:14)
[2017-12-30] MEDS: guaiFENesin ER 600 MG TAB PO ×3 (07:32→09:14)
[2017-12-30] MEDS: ASPIRIN 81 MG ENTERIC TAB PO (09:13)
[2017-12-30] MEDS: MULTIVITAMINS/MINERALS THERAP 1 TAB PO (09:13)
[2017-12-30] MEDS: SPIRONOLACTONE 25 MG TAB PO (09:14)
[2017-12-30] MEDS: LISINOPRIL 20 MG TAB PO (09:14)
[2017-12-31] MEDS: guaiFENesin ER 600 MG TAB PO ×2 (07:19→20:01)
[2017-12-31] MEDS: HumaLOG INSULIN (NovoLOG) PER UNIT SC ×3 (07:19→20:01)
[2017-12-31] MEDS: metFORMIN (GLUCOPHAGE) 500 MG TAB PO (07:21)
[2017-12-31] MEDS: ASPIRIN 81 MG ENTERIC TAB PO (08:51)
[2017-12-31] MEDS: SPIRONOLACTONE 25 MG TAB PO (08:51)
[2017-12-31] MEDS: MULTIVITAMINS/MINERALS THERAP 1 TAB PO (08:51)
[2017-12-31] MEDS: LISINOPRIL 20 MG TAB PO (08:51)
[2018-01-01] MEDS: HumaLOG INSULIN (NovoLOG) PER UNIT SC ×4 (07:30→20:46)
[2018-01-01] MEDS: metFORMIN (GLUCOPHAGE) 500 MG TAB PO ×2 (08:00→17:43)
[2018-01-01] MEDS: guaiFENesin ER 600 MG TAB PO ×2 (09:00→20:46)
[2018-01-01] MEDS: LISINOPRIL 20 MG TAB PO (11:18)
[2018-01-01] MEDS: ASPIRIN 81 MG ENTERIC TAB PO (11:18)
[2018-01-01] MEDS: MULTIVITAMINS/MINERALS THERAP 1 TAB PO (11:18)
[2018-01-01] MEDS: SPIRONOLACTONE 25 MG TAB PO (11:18)
[2018-01-02] MEDS: metFORMIN (GLUCOPHAGE) 500 MG TAB PO ×2 (07:57→11:56)
[2018-01-02] MEDS: HumaLOG INSULIN (NovoLOG) PER UNIT SC ×4 (07:57→20:29)
[2018-01-02] MEDS: guaiFENesin ER 600 MG TAB PO ×2 (07:58→20:28)
[2018-01-02] MEDS: ASPIRIN 81 MG ENTERIC TAB PO (09:45)
[2018-01-02] MEDS: SPIRONOLACTONE 25 MG TAB PO (09:45)
[2018-01-02] MEDS: MULTIVITAMINS/MINERALS THERAP 1 TAB PO (09:45)
[2018-01-02] MEDS: LISINOPRIL 20 MG TAB PO (09:48)
[2018-01-03] MEDS: HumaLOG INSULIN (NovoLOG) PER UNIT SC ×4 (07:30→20:25)
[2018-01-03] MEDS: metFORMIN (GLUCOPHAGE) 500 MG TAB PO ×2 (08:00→20:25)
[2018-01-03] MEDS: guaiFENesin ER 600 MG TAB PO ×2 (09:00→20:25)
[2018-01-03] MEDS: SPIRONOLACTONE 25 MG TAB PO (10:26)
[2018-01-03] MEDS: ASPIRIN 81 MG ENTERIC TAB PO (10:26)
[2018-01-03] MEDS: LISINOPRIL 20 MG TAB PO (10:26)
[2018-01-03] MEDS: MULTIVITAMINS/MINERALS THERAP 1 TAB PO (10:26)
[2018-01-04] MEDS: HumaLOG INSULIN (NovoLOG) PER UNIT SC ×4 (07:30→20:00)
[2018-01-04] MEDS: metFORMIN (GLUCOPHAGE) 500 MG TAB PO ×2 (08:00→18:00)
[2018-01-04] MEDS: LISINOPRIL 20 MG TAB PO (08:56)
[2018-01-04] MEDS: SPIRONOLACTONE 25 MG TAB PO (08:57)
[2018-01-04] MEDS: MULTIVITAMINS/MINERALS THERAP 1 TAB PO (08:57)
[2018-01-04] MEDS: ASPIRIN 81 MG ENTERIC TAB PO (08:57)
[2018-01-04] MEDS: guaiFENesin ER 600 MG TAB PO ×2 (09:00→20:00)
[2018-01-05] MEDS: HumaLOG INSULIN (NovoLOG) PER UNIT SC ×4 (07:30→19:44)
[2018-01-05] MEDS: metFORMIN (GLUCOPHAGE) 500 MG TAB PO ×2 (08:00→18:00)
[2018-01-05] MEDS: guaiFENesin ER 600 MG TAB PO ×2 (09:00→19:44)
[2018-01-05] MEDS: SPIRONOLACTONE 25 MG TAB PO (09:03)
[2018-01-05] MEDS: ASPIRIN 81 MG ENTERIC TAB PO (09:03)
[2018-01-05] MEDS: LISINOPRIL 20 MG TAB PO (09:04)
[2018-01-05] MEDS: MULTIVITAMINS/MINERALS THERAP 1 TAB PO (09:04)
[2018-01-06] MEDS: HumaLOG INSULIN (NovoLOG) PER UNIT SC ×4 (07:42→22:41)
[2018-01-06] MEDS: metFORMIN (GLUCOPHAGE) 500 MG TAB PO ×2 (07:42→13:54)
[2018-01-06] MEDS: guaiFENesin ER 600 MG TAB PO ×2 (07:44→22:41)
[2018-01-06] MEDS: LISINOPRIL 20 MG TAB PO (10:01)
[2018-01-06] MEDS: SPIRONOLACTONE 25 MG TAB PO (10:01)
[2018-01-06] MEDS: ASPIRIN 81 MG ENTERIC TAB PO (10:01)
[2018-01-06] MEDS: MULTIVITAMINS/MINERALS THERAP 1 TAB PO (10:02)
[2018-01-07] MEDS: HumaLOG INSULIN (NovoLOG) PER UNIT SC ×4 (07:30→21:00)
[2018-01-07] MEDS: metFORMIN (GLUCOPHAGE) 500 MG TAB PO ×2 (08:00→16:48)
[2018-01-07] MEDS: guaiFENesin ER 600 MG TAB PO ×2 (09:00→21:00)
[2018-01-07] MEDS: LISINOPRIL 20 MG TAB PO (10:24)
[2018-01-07] MEDS: MULTIVITAMINS/MINERALS THERAP 1 TAB PO (10:24)
[2018-01-07] MEDS: SPIRONOLACTONE 25 MG TAB PO (10:24)
[2018-01-07] MEDS: ASPIRIN 81 MG ENTERIC TAB PO (10:24)
[2018-01-08] MEDS: HumaLOG INSULIN (NovoLOG) PER UNIT SC ×4 (07:30→21:00)
[2018-01-08] MEDS: metFORMIN (GLUCOPHAGE) 500 MG TAB PO ×2 (08:00→17:30)
[2018-01-08] MEDS: guaiFENesin ER 600 MG TAB PO ×2 (08:02→20:09)
[2018-01-08] MEDS: SPIRONOLACTONE 25 MG TAB PO (09:00)
[2018-01-08] MEDS: ASPIRIN 81 MG ENTERIC TAB PO (10:29)
[2018-01-08] MEDS: LISINOPRIL 20 MG TAB PO (10:29)
[2018-01-08] MEDS: MULTIVITAMINS/MINERALS THERAP 1 TAB PO (10:30)
[2018-01-09] MEDS: HumaLOG INSULIN (NovoLOG) PER UNIT SC ×3 (07:30→20:01)
[2018-01-09] MEDS: metFORMIN (GLUCOPHAGE) 500 MG TAB PO (08:00)
[2018-01-09] MEDS: guaiFENesin ER 600 MG TAB PO ×2 (09:00→20:00)
[2018-01-09] MEDS: MULTIVITAMINS/MINERALS THERAP 1 TAB PO (10:24)
[2018-01-09] MEDS: SPIRONOLACTONE 25 MG TAB PO (10:24)
[2018-01-09] MEDS: ASPIRIN 81 MG ENTERIC TAB PO (10:24)
[2018-01-09] MEDS: LISINOPRIL 20 MG TAB PO (10:25)
[2018-01-10] MEDS: HumaLOG INSULIN (NovoLOG) PER UNIT SC ×4 (07:30→20:50)
[2018-01-10] MEDS: metFORMIN (GLUCOPHAGE) 500 MG TAB PO ×2 (08:00→20:50)
[2018-01-10] MEDS: guaiFENesin ER 600 MG TAB PO ×2 (09:00→20:50)
[2018-01-10] MEDS: SPIRONOLACTONE 25 MG TAB PO (10:13)
[2018-01-10] MEDS: MULTIVITAMINS/MINERALS THERAP 1 TAB PO (10:13)
[2018-01-10] MEDS: LISINOPRIL 20 MG TAB PO (10:13)
[2018-01-10] MEDS: ASPIRIN 81 MG ENTERIC TAB PO (10:13)
[2018-01-11] MEDS: HumaLOG INSULIN (NovoLOG) PER UNIT SC ×3 (07:30→21:00)
[2018-01-11] MEDS: metFORMIN (GLUCOPHAGE) 500 MG TAB PO ×2 (08:00→18:00)
[2018-01-11] MEDS: guaiFENesin ER 600 MG TAB PO ×2 (09:00→21:00)
[2018-01-11] MEDS: LISINOPRIL 20 MG TAB PO (10:31)
[2018-01-11] MEDS: ASPIRIN 81 MG ENTERIC TAB PO (10:31)
[2018-01-11] MEDS: MULTIVITAMINS/MINERALS THERAP 1 TAB PO (10:31)
[2018-01-11] MEDS: SPIRONOLACTONE 25 MG TAB PO (10:31)
[2018-01-12] MEDS: HumaLOG INSULIN (NovoLOG) PER UNIT SC ×5 (07:30→21:00)
[2018-01-12] MEDS: metFORMIN (GLUCOPHAGE) 500 MG TAB PO ×2 (08:00→08:46)
[2018-01-12] MEDS: LISINOPRIL 20 MG TAB PO (08:43)
[2018-01-12] MEDS: MULTIVITAMINS/MINERALS THERAP 1 TAB PO (08:43)
[2018-01-12] MEDS: SPIRONOLACTONE 25 MG TAB PO (08:44)
[2018-01-12] MEDS: guaiFENesin ER 600 MG TAB PO ×2 (08:44→21:00)
[2018-01-12] MEDS: ASPIRIN 81 MG ENTERIC TAB PO (08:44)
[2018-01-13] MEDS: HumaLOG INSULIN (NovoLOG) PER UNIT SC ×4 (07:47→21:00)
[2018-01-13] MEDS: guaiFENesin ER 600 MG TAB PO ×2 (07:48→21:00)
[2018-01-13] MEDS: metFORMIN (GLUCOPHAGE) 500 MG TAB PO ×2 (07:48→07:49)
[2018-01-13] MEDS: LISINOPRIL 20 MG TAB PO (08:03)
[2018-01-13] MEDS: ASPIRIN 81 MG ENTERIC TAB PO (08:03)
[2018-01-13] MEDS: SPIRONOLACTONE 25 MG TAB PO (08:03)
[2018-01-13] MEDS: MULTIVITAMINS/MINERALS THERAP 1 TAB PO (08:03)
[2018-01-14] MEDS: HumaLOG INSULIN (NovoLOG) PER UNIT SC ×4 (07:30→21:30)
[2018-01-14] MEDS: metFORMIN (GLUCOPHAGE) 500 MG TAB PO ×2 (08:00→18:00)
[2018-01-14] MEDS: guaiFENesin ER 600 MG TAB PO ×2 (09:00→21:30)
[2018-01-14] MEDS: SPIRONOLACTONE 25 MG TAB PO (10:27)
[2018-01-14] MEDS: ASPIRIN 81 MG ENTERIC TAB PO (10:28)
[2018-01-14] MEDS: LISINOPRIL 20 MG TAB PO (10:28)
[2018-01-14] MEDS: MULTIVITAMINS/MINERALS THERAP 1 TAB PO (10:28)
[2018-01-15] MEDS: HumaLOG INSULIN (NovoLOG) PER UNIT SC ×3 (07:30→21:00)
[2018-01-15] MEDS: metFORMIN (GLUCOPHAGE) 500 MG TAB PO (08:00)
[2018-01-15] MEDS: guaiFENesin ER 600 MG TAB PO ×2 (09:00→21:00)
[2018-01-15] MEDS: ASPIRIN 81 MG ENTERIC TAB PO (10:50)
[2018-01-15] MEDS: MULTIVITAMINS/MINERALS THERAP 1 TAB PO (10:50)
[2018-01-15] MEDS: LISINOPRIL 20 MG TAB PO (10:50)
[2018-01-15] MEDS: SPIRONOLACTONE 25 MG TAB PO (10:50)
[2018-01-16] MEDS: HumaLOG INSULIN (NovoLOG) PER UNIT SC ×4 (07:30→21:00)
[2018-01-16] MEDS: metFORMIN (GLUCOPHAGE) 500 MG TAB PO ×2 (08:00→18:00)
[2018-01-16] MEDS: guaiFENesin ER 600 MG TAB PO ×2 (09:00→21:00)
[2018-01-16] MEDS: SPIRONOLACTONE 25 MG TAB PO (11:13)
[2018-01-16] MEDS: LISINOPRIL 20 MG TAB PO (11:13)
[2018-01-16] MEDS: MULTIVITAMINS/MINERALS THERAP 1 TAB PO (11:13)
[2018-01-16] MEDS: ASPIRIN 81 MG ENTERIC TAB PO (11:13)
[2018-01-17] MEDS: guaiFENesin ER 600 MG TAB PO ×2 (07:54→20:49)
[2018-01-17] MEDS: HumaLOG INSULIN (NovoLOG) PER UNIT SC ×4 (07:54→20:49)
[2018-01-17] MEDS: metFORMIN (GLUCOPHAGE) 500 MG TAB PO ×2 (07:54→12:03)
[2018-01-17] MEDS: ASPIRIN 81 MG ENTERIC TAB PO (08:45)
[2018-01-17] MEDS: SPIRONOLACTONE 25 MG TAB PO (08:45)
[2018-01-17] MEDS: LISINOPRIL 20 MG TAB PO (08:45)
[2018-01-17] MEDS: MULTIVITAMINS/MINERALS THERAP 1 TAB PO (08:45)
[2018-01-18] MEDS: HumaLOG INSULIN (NovoLOG) PER UNIT SC ×4 (07:30→21:14)
[2018-01-18] MEDS: metFORMIN (GLUCOPHAGE) 500 MG TAB PO ×2 (08:00→18:00)
[2018-01-18] MEDS: guaiFENesin ER 600 MG TAB PO ×2 (08:38→19:29)
[2018-01-18] MEDS: SPIRONOLACTONE 25 MG TAB PO (08:44)
[2018-01-18] MEDS: ASPIRIN 81 MG ENTERIC TAB PO (08:44)
[2018-01-18] MEDS: MULTIVITAMINS/MINERALS THERAP 1 TAB PO (08:45)
[2018-01-18] MEDS: LISINOPRIL 20 MG TAB PO (08:46)
[2018-01-19] MEDS: LISINOPRIL 20 MG TAB PO (09:00)
[2018-01-19] MEDS: ASPIRIN 81 MG ENTERIC TAB PO (09:00)
[2018-01-19] MEDS: MULTIVITAMINS/MINERALS THERAP 1 TAB PO (09:00)
[2018-01-19] MEDS: SPIRONOLACTONE 25 MG TAB PO (09:00)
[2018-01-19] MEDS: HumaLOG INSULIN (NovoLOG) PER UNIT SC ×4 (12:00→20:43)
[2018-01-19] MEDS: metFORMIN (GLUCOPHAGE) 500 MG TAB PO ×2 (12:06→12:15)
[2018-01-19] MEDS: guaiFENesin ER 600 MG TAB PO ×2 (12:06→20:43)
[2018-01-20] MEDS: HumaLOG INSULIN (NovoLOG) PER UNIT SC ×4 (07:30→20:08)
[2018-01-20] MEDS: metFORMIN (GLUCOPHAGE) 500 MG TAB PO ×2 (08:00→20:08)
[2018-01-20] MEDS: guaiFENesin ER 600 MG TAB PO ×2 (09:00→20:08)
[2018-01-20] MEDS: ASPIRIN 81 MG ENTERIC TAB PO (09:35)
[2018-01-20] MEDS: LISINOPRIL 20 MG TAB PO (09:35)
[2018-01-20] MEDS: MULTIVITAMINS/MINERALS THERAP 1 TAB PO (09:35)
[2018-01-20] MEDS: SPIRONOLACTONE 25 MG TAB PO (09:35)
[2018-01-21] MEDS: HumaLOG INSULIN (NovoLOG) PER UNIT SC ×4 (07:30→20:57)
[2018-01-21] MEDS: metFORMIN (GLUCOPHAGE) 500 MG TAB PO ×2 (08:00→18:00)
[2018-01-21] MEDS: guaiFENesin ER 600 MG TAB PO ×2 (09:00→20:57)
[2018-01-21] MEDS: SPIRONOLACTONE 25 MG TAB PO (10:27)
[2018-01-21] MEDS: LISINOPRIL 20 MG TAB PO (10:27)
[2018-01-21] MEDS: MULTIVITAMINS/MINERALS THERAP 1 TAB PO (10:27)
[2018-01-21] MEDS: ASPIRIN 81 MG ENTERIC TAB PO (10:27)
[2018-01-22] MEDS: HumaLOG INSULIN (NovoLOG) PER UNIT SC ×4 (07:21→21:00)
[2018-01-22] MEDS: metFORMIN (GLUCOPHAGE) 500 MG TAB PO ×2 (07:21→18:00)
[2018-01-22] MEDS: guaiFENesin ER 600 MG TAB PO ×2 (07:26→21:00)
[2018-01-22] MEDS: ASPIRIN 81 MG ENTERIC TAB PO (10:13)
[2018-01-22] MEDS: SPIRONOLACTONE 25 MG TAB PO (10:13)
[2018-01-22] MEDS: MULTIVITAMINS/MINERALS THERAP 1 TAB PO (10:13)
[2018-01-22] MEDS: LISINOPRIL 20 MG TAB PO (10:13)
[2018-01-23] MEDS: HumaLOG INSULIN (NovoLOG) PER UNIT SC ×4 (07:30→21:00)
[2018-01-23] MEDS: metFORMIN (GLUCOPHAGE) 500 MG TAB PO ×2 (07:38→15:33)
[2018-01-23] MEDS: guaiFENesin ER 600 MG TAB PO ×2 (09:00→21:00)
[2018-01-23] MEDS: SPIRONOLACTONE 25 MG TAB PO (09:47)
[2018-01-23] MEDS: ASPIRIN 81 MG ENTERIC TAB PO (09:47)
[2018-01-23] MEDS: LISINOPRIL 20 MG TAB PO (09:48)
[2018-01-23] MEDS: MULTIVITAMINS/MINERALS THERAP 1 TAB PO (09:48)
[2018-01-24] MEDS: HumaLOG INSULIN (NovoLOG) PER UNIT SC ×4 (07:30→20:00)
[2018-01-24] MEDS: metFORMIN (GLUCOPHAGE) 500 MG TAB PO ×2 (08:00→17:21)
[2018-01-24] MEDS: guaiFENesin ER 600 MG TAB PO ×2 (09:00→20:00)
[2018-01-24] MEDS: LISINOPRIL 20 MG TAB PO (10:49)
[2018-01-24] MEDS: MULTIVITAMINS/MINERALS THERAP 1 TAB PO (10:49)
[2018-01-24] MEDS: SPIRONOLACTONE 25 MG TAB PO (10:49)
[2018-01-24] MEDS: ASPIRIN 81 MG ENTERIC TAB PO (10:49)
[2018-01-25] MEDS: MULTIVITAMINS/MINERALS THERAP 1 TAB PO (08:52)
[2018-01-25] MEDS: SPIRONOLACTONE 25 MG TAB PO (08:52)
[2018-01-25] MEDS: ASPIRIN 81 MG ENTERIC TAB PO (08:52)
[2018-01-25] MEDS: LISINOPRIL 20 MG TAB PO (08:52)
[2018-01-25] MEDS: guaiFENesin ER 600 MG TAB PO ×2 (08:53→20:54)
[2018-01-25] MEDS: HumaLOG INSULIN (NovoLOG) PER UNIT SC ×4 (08:53→20:54)
[2018-01-25] MEDS: metFORMIN (GLUCOPHAGE) 500 MG TAB PO ×2 (08:53→14:41)
[2018-01-26] MEDS: HumaLOG INSULIN (NovoLOG) PER UNIT SC ×4 (06:49→06:51)
[2018-01-26] MEDS: metFORMIN (GLUCOPHAGE) 500 MG TAB PO ×2 (06:50)
[2018-01-26] MEDS: guaiFENesin ER 600 MG TAB PO ×2 (06:50→06:51)
[2018-01-26] MEDS: SPIRONOLACTONE 25 MG TAB PO (08:59)
[2018-01-26] MEDS: LISINOPRIL 20 MG TAB PO (09:00)
[2018-01-26] MEDS: ASPIRIN 81 MG ENTERIC TAB PO (09:00)
[2018-01-26] MEDS: MULTIVITAMINS/MINERALS THERAP 1 TAB PO (09:00)
[2018-01-27] MEDS: HumaLOG INSULIN (NovoLOG) PER UNIT SC ×4 (07:30→09:18)
[2018-01-27] MEDS: metFORMIN (GLUCOPHAGE) 500 MG TAB PO ×2 (08:00→09:18)
[2018-01-27] MEDS: guaiFENesin ER 600 MG TAB PO ×2 (09:00→09:18)
[2018-01-27] MEDS: SPIRONOLACTONE 25 MG TAB PO (09:29)
[2018-01-27] MEDS: ASPIRIN 81 MG ENTERIC TAB PO (09:29)
[2018-01-27] MEDS: LISINOPRIL 20 MG TAB PO (09:29)
[2018-01-27] MEDS: MULTIVITAMINS/MINERALS THERAP 1 TAB PO (09:30)
[2018-01-28] MEDS: HumaLOG INSULIN (NovoLOG) PER UNIT SC ×4 (06:48→11:50)
[2018-01-28] MEDS: metFORMIN (GLUCOPHAGE) 500 MG TAB PO ×2 (06:49→11:51)
[2018-01-28] MEDS: guaiFENesin ER 600 MG TAB PO ×2 (06:49→11:51)
[2018-01-28] MEDS: ASPIRIN 81 MG ENTERIC TAB PO (11:50)
[2018-01-28] MEDS: SPIRONOLACTONE 25 MG TAB PO (11:50)
[2018-01-28] MEDS: MULTIVITAMINS/MINERALS THERAP 1 TAB PO (11:50)
[2018-01-28] MEDS: LISINOPRIL 20 MG TAB PO (11:50)
[2018-01-29] MEDS: metFORMIN (GLUCOPHAGE) 500 MG TAB PO ×2 (08:42→18:00)
[2018-01-29] MEDS: HumaLOG INSULIN (NovoLOG) PER UNIT SC ×4 (08:42→21:00)
[2018-01-29] MEDS: guaiFENesin ER 600 MG TAB PO ×2 (08:42→20:58)
[2018-01-29] MEDS: LISINOPRIL 20 MG TAB PO (09:03)
[2018-01-29] MEDS: ASPIRIN 81 MG ENTERIC TAB PO (09:03)
[2018-01-29] MEDS: MULTIVITAMINS/MINERALS THERAP 1 TAB PO (09:03)
[2018-01-29] MEDS: SPIRONOLACTONE 25 MG TAB PO (09:04)
[2018-01-30] MEDS: HumaLOG INSULIN (NovoLOG) PER UNIT SC ×4 (07:30→20:54)
[2018-01-30] MEDS: metFORMIN (GLUCOPHAGE) 500 MG TAB PO ×2 (08:00→16:45)
[2018-01-30] MEDS: guaiFENesin ER 600 MG TAB PO ×2 (09:00→20:53)
[2018-01-30] MEDS: MULTIVITAMINS/MINERALS THERAP 1 TAB PO (10:43)
[2018-01-30] MEDS: SPIRONOLACTONE 25 MG TAB PO (10:44)
[2018-01-30] MEDS: ASPIRIN 81 MG ENTERIC TAB PO (10:44)
[2018-01-30] MEDS: LISINOPRIL 20 MG TAB PO (10:44)
[2018-01-31] MEDS: HumaLOG INSULIN (NovoLOG) PER UNIT SC ×4 (07:30→20:17)
[2018-01-31] MEDS: metFORMIN (GLUCOPHAGE) 500 MG TAB PO ×2 (08:00→20:17)
[2018-01-31] MEDS: guaiFENesin ER 600 MG TAB PO ×2 (09:00→20:17)
[2018-01-31] MEDS: SPIRONOLACTONE 25 MG TAB PO (10:43)
[2018-01-31] MEDS: MULTIVITAMINS/MINERALS THERAP 1 TAB PO (10:43)
[2018-01-31] MEDS: ASPIRIN 81 MG ENTERIC TAB PO (10:43)
[2018-01-31] MEDS: LISINOPRIL 20 MG TAB PO (10:43)
[2018-02-01] MEDS: HumaLOG INSULIN (NovoLOG) PER UNIT SC ×4 (07:30→20:13)
[2018-02-01] MEDS: LISINOPRIL 20 MG TAB PO (10:29)
[2018-02-01] MEDS: SPIRONOLACTONE 25 MG TAB PO (10:29)
[2018-02-01] MEDS: MULTIVITAMINS/MINERALS THERAP 1 TAB PO (10:29)
[2018-02-01] MEDS: ASPIRIN 81 MG ENTERIC TAB PO (10:29)
[2018-02-01] MEDS: metFORMIN (GLUCOPHAGE) 500 MG TAB PO ×2 (20:14→20:15)
[2018-02-01] MEDS: guaiFENesin ER 600 MG TAB PO ×2 (20:14→20:15)
[2018-02-02] MEDS: HumaLOG INSULIN (NovoLOG) PER UNIT SC ×4 (07:30→20:47)
[2018-02-02] MEDS: metFORMIN (GLUCOPHAGE) 500 MG TAB PO ×2 (08:00→15:16)
[2018-02-02] MEDS: guaiFENesin ER 600 MG TAB PO ×2 (09:00→20:47)
[2018-02-02] MEDS: SPIRONOLACTONE 25 MG TAB PO (09:30)
[2018-02-02] MEDS: ASPIRIN 81 MG ENTERIC TAB PO (09:30)
[2018-02-02] MEDS: LISINOPRIL 20 MG TAB PO (09:30)
[2018-02-02] MEDS: MULTIVITAMINS/MINERALS THERAP 1 TAB PO (09:30)
[2018-02-03] MEDS: HumaLOG INSULIN (NovoLOG) PER UNIT SC ×4 (07:30→20:08)
[2018-02-03] MEDS: metFORMIN (GLUCOPHAGE) 500 MG TAB PO ×2 (07:44→18:00)
[2018-02-03] MEDS: guaiFENesin ER 600 MG TAB PO ×2 (07:46→20:07)
[2018-02-03] MEDS: MULTIVITAMINS/MINERALS THERAP 1 TAB PO (10:09)
[2018-02-03] MEDS: ASPIRIN 81 MG ENTERIC TAB PO (10:09)
[2018-02-03] MEDS: SPIRONOLACTONE 25 MG TAB PO (10:09)
[2018-02-03] MEDS: LISINOPRIL 20 MG TAB PO (10:09)
[2018-02-04] MEDS: HumaLOG INSULIN (NovoLOG) PER UNIT SC ×3 (07:30→20:47)
[2018-02-04] MEDS: metFORMIN (GLUCOPHAGE) 500 MG TAB PO ×2 (08:00→18:00)
[2018-02-04] MEDS: guaiFENesin ER 600 MG TAB PO ×2 (09:00→20:47)
[2018-02-04] MEDS: SPIRONOLACTONE 25 MG TAB PO (10:59)
[2018-02-04] MEDS: ASPIRIN 81 MG ENTERIC TAB PO (10:59)
[2018-02-04] MEDS: LISINOPRIL 20 MG TAB PO (10:59)
[2018-02-04] MEDS: MULTIVITAMINS/MINERALS THERAP 1 TAB PO (11:00)
[2018-02-05] MEDS: HumaLOG INSULIN (NovoLOG) PER UNIT SC ×5 (07:10→20:30)
[2018-02-05] MEDS: guaiFENesin ER 600 MG TAB PO ×2 (07:11→20:30)
[2018-02-05] MEDS: metFORMIN (GLUCOPHAGE) 500 MG TAB PO ×2 (07:12→08:54)
[2018-02-05] MEDS: LISINOPRIL 20 MG TAB PO (08:49)
[2018-02-05] MEDS: SPIRONOLACTONE 25 MG TAB PO (08:49)
[2018-02-05] MEDS: MULTIVITAMINS/MINERALS THERAP 1 TAB PO (08:49)
[2018-02-05] MEDS: ASPIRIN 81 MG ENTERIC TAB PO (08:49)
[2018-02-06] MEDS: HumaLOG INSULIN (NovoLOG) PER UNIT SC ×4 (07:30→20:17)
[2018-02-06] MEDS: metFORMIN (GLUCOPHAGE) 500 MG TAB PO ×2 (08:00→10:06)
[2018-02-06] MEDS: ASPIRIN 81 MG ENTERIC TAB PO (08:42)
[2018-02-06] MEDS: SPIRONOLACTONE 25 MG TAB PO (08:42)
[2018-02-06] MEDS: guaiFENesin ER 600 MG TAB PO ×2 (08:42→20:17)
[2018-02-06] MEDS: LISINOPRIL 20 MG TAB PO (08:43)
[2018-02-06] MEDS: MULTIVITAMINS/MINERALS THERAP 1 TAB PO (08:43)
[2018-02-07] MEDS: metFORMIN (GLUCOPHAGE) 500 MG TAB PO ×2 (07:04→09:38)
[2018-02-07] MEDS: HumaLOG INSULIN (NovoLOG) PER UNIT SC ×4 (07:04→20:00)
[2018-02-07] MEDS: guaiFENesin ER 600 MG TAB PO ×2 (08:54→20:00)
[2018-02-07] MEDS: MULTIVITAMINS/MINERALS THERAP 1 TAB PO (09:00)
[2018-02-07] MEDS: LISINOPRIL 20 MG TAB PO (09:00)
[2018-02-07] MEDS: SPIRONOLACTONE 25 MG TAB PO (09:00)
[2018-02-07] MEDS: ASPIRIN 81 MG ENTERIC TAB PO (09:00)
[2018-02-08] MEDS: HumaLOG INSULIN (NovoLOG) PER UNIT SC ×5 (07:30→09:43)
[2018-02-08] MEDS: metFORMIN (GLUCOPHAGE) 500 MG TAB PO ×3 (08:00→09:44)
[2018-02-08] MEDS: guaiFENesin ER 600 MG TAB PO ×3 (08:59→09:44)
[2018-02-08] MEDS: SPIRONOLACTONE 25 MG TAB PO (09:43)
[2018-02-08] MEDS: LISINOPRIL 20 MG TAB PO (09:43)
[2018-02-08] MEDS: MULTIVITAMINS/MINERALS THERAP 1 TAB PO (09:43)
[2018-02-08] MEDS: ASPIRIN 81 MG ENTERIC TAB PO (09:43)
[2018-02-09] MEDS: MULTIVITAMINS/MINERALS THERAP 1 TAB PO (10:03)
[2018-02-09] MEDS: ASPIRIN 81 MG ENTERIC TAB PO (10:03)
[2018-02-09] MEDS: LISINOPRIL 20 MG TAB PO (10:04)
[2018-02-09] MEDS: metFORMIN (GLUCOPHAGE) 500 MG TAB PO (10:04)
[2018-02-09] MEDS: HumaLOG INSULIN (NovoLOG) PER UNIT SC ×3 (10:04→21:06)
[2018-02-09] MEDS: SPIRONOLACTONE 25 MG TAB PO (10:04)
[2018-02-09] MEDS: guaiFENesin ER 600 MG TAB PO (21:05)
[2018-02-10] MEDS: HumaLOG INSULIN (NovoLOG) PER UNIT SC ×4 (07:30→08:13)
[2018-02-10] MEDS: metFORMIN (GLUCOPHAGE) 500 MG TAB PO ×2 (08:00→08:13)
[2018-02-10] MEDS: guaiFENesin ER 600 MG TAB PO ×2 (08:12→08:13)
[2018-02-10] MEDS: MULTIVITAMINS/MINERALS THERAP 1 TAB PO (09:25)
[2018-02-10] MEDS: SPIRONOLACTONE 25 MG TAB PO (09:25)
[2018-02-10] MEDS: ASPIRIN 81 MG ENTERIC TAB PO (09:25)
[2018-02-10] MEDS: LISINOPRIL 20 MG TAB PO (09:25)
[2018-02-11] MEDS: HumaLOG INSULIN (NovoLOG) PER UNIT SC ×4 (07:30→21:00)
[2018-02-11] MEDS: metFORMIN (GLUCOPHAGE) 500 MG TAB PO ×2 (08:00→18:00)
[2018-02-11] MEDS: guaiFENesin ER 600 MG TAB PO ×2 (09:00→21:00)
[2018-02-11] MEDS: LISINOPRIL 20 MG TAB PO (09:59)
[2018-02-11] MEDS: ASPIRIN 81 MG ENTERIC TAB PO (09:59)
[2018-02-11] MEDS: MULTIVITAMINS/MINERALS THERAP 1 TAB PO (09:59)
[2018-02-11] MEDS: SPIRONOLACTONE 25 MG TAB PO (09:59)
[2018-02-12] MEDS: HumaLOG INSULIN (NovoLOG) PER UNIT SC ×4 (07:30→21:00)
[2018-02-12] MEDS: metFORMIN (GLUCOPHAGE) 500 MG TAB PO ×2 (08:00→17:59)
[2018-02-12] MEDS: guaiFENesin ER 600 MG TAB PO ×2 (09:00→21:00)
[2018-02-12] MEDS: SPIRONOLACTONE 25 MG TAB PO (10:43)
[2018-02-12] MEDS: MULTIVITAMINS/MINERALS THERAP 1 TAB PO (10:44)
[2018-02-12] MEDS: ASPIRIN 81 MG ENTERIC TAB PO (10:44)
[2018-02-12] MEDS: LISINOPRIL 20 MG TAB PO (10:44)
[2018-02-13] MEDS: HumaLOG INSULIN (NovoLOG) PER UNIT SC ×3 (10:49→21:00)
[2018-02-13] MEDS: metFORMIN (GLUCOPHAGE) 500 MG TAB PO (10:49)
[2018-02-13] MEDS: guaiFENesin ER 600 MG TAB PO ×2 (10:50→21:00)
[2018-02-13] MEDS: SPIRONOLACTONE 25 MG TAB PO (10:52)
[2018-02-13] MEDS: ASPIRIN 81 MG ENTERIC TAB PO (10:52)
[2018-02-13] MEDS: LISINOPRIL 20 MG TAB PO (10:52)
[2018-02-13] MEDS: MULTIVITAMINS/MINERALS THERAP 1 TAB PO (10:53)
[2018-02-14] MEDS: HumaLOG INSULIN (NovoLOG) PER UNIT SC ×3 (07:30→21:00)
[2018-02-14] MEDS: metFORMIN (GLUCOPHAGE) 500 MG TAB PO (08:00)
[2018-02-14] MEDS: guaiFENesin ER 600 MG TAB PO ×2 (09:00→21:00)
[2018-02-14] MEDS: SPIRONOLACTONE 25 MG TAB PO (10:55)
[2018-02-14] MEDS: LISINOPRIL 20 MG TAB PO (10:55)
[2018-02-14] MEDS: MULTIVITAMINS/MINERALS THERAP 1 TAB PO (10:55)
[2018-02-14] MEDS: ASPIRIN 81 MG ENTERIC TAB PO (10:55)
[2018-02-15] MEDS: HumaLOG INSULIN (NovoLOG) PER UNIT SC ×4 (07:30→20:19)
[2018-02-15] MEDS: metFORMIN (GLUCOPHAGE) 500 MG TAB PO ×2 (08:00→18:43)
[2018-02-15] MEDS: guaiFENesin ER 600 MG TAB PO ×2 (09:00→20:18)
[2018-02-15] MEDS: ASPIRIN 81 MG ENTERIC TAB PO (11:01)
[2018-02-15] MEDS: LISINOPRIL 20 MG TAB PO (11:01)
[2018-02-15] MEDS: SPIRONOLACTONE 25 MG TAB PO (11:01)
[2018-02-15] MEDS: MULTIVITAMINS/MINERALS THERAP 1 TAB PO (11:02)
[2018-02-16] MEDS: HumaLOG INSULIN (NovoLOG) PER UNIT SC ×4 (07:30→19:58)
[2018-02-16] MEDS: metFORMIN (GLUCOPHAGE) 500 MG TAB PO ×2 (08:00→16:49)
[2018-02-16] MEDS: guaiFENesin ER 600 MG TAB PO ×2 (09:00→19:58)
[2018-02-16] MEDS: SPIRONOLACTONE 25 MG TAB PO (09:40)
[2018-02-16] MEDS: MULTIVITAMINS/MINERALS THERAP 1 TAB PO (09:41)
[2018-02-16] MEDS: ASPIRIN 81 MG ENTERIC TAB PO (09:41)
[2018-02-16] MEDS: LISINOPRIL 20 MG TAB PO (09:41)
[2018-02-17] MEDS: HumaLOG INSULIN (NovoLOG) PER UNIT SC ×4 (07:30→21:00)
[2018-02-17] MEDS: metFORMIN (GLUCOPHAGE) 500 MG TAB PO ×2 (08:00→18:00)
[2018-02-17] MEDS: guaiFENesin ER 600 MG TAB PO ×2 (08:40→21:00)
[2018-02-17] MEDS: MULTIVITAMINS/MINERALS THERAP 1 TAB PO (09:41)
[2018-02-17] MEDS: ASPIRIN 81 MG ENTERIC TAB PO (09:41)
[2018-02-17] MEDS: SPIRONOLACTONE 25 MG TAB PO (09:41)
[2018-02-17] MEDS: LISINOPRIL 20 MG TAB PO (09:45)
[2018-02-18] MEDS: HumaLOG INSULIN (NovoLOG) PER UNIT SC ×3 (07:30→21:00)
[2018-02-18] MEDS: metFORMIN (GLUCOPHAGE) 500 MG TAB PO (08:00)
[2018-02-18] MEDS: SPIRONOLACTONE 25 MG TAB PO (10:14)
[2018-02-18] MEDS: LISINOPRIL 20 MG TAB PO (10:14)
[2018-02-18] MEDS: MULTIVITAMINS/MINERALS THERAP 1 TAB PO (10:14)
[2018-02-18] MEDS: ASPIRIN 81 MG ENTERIC TAB PO (10:14)
[2018-02-18] MEDS: guaiFENesin ER 600 MG TAB PO ×2 (10:16→21:00)
[2018-02-19] MEDS: HumaLOG INSULIN (NovoLOG) PER UNIT SC ×3 (07:30→20:15)
[2018-02-19] MEDS: metFORMIN (GLUCOPHAGE) 500 MG TAB PO (08:00)
[2018-02-19] MEDS: guaiFENesin ER 600 MG TAB PO ×2 (09:00→20:15)
[2018-02-19] MEDS: LISINOPRIL 20 MG TAB PO (10:25)
[2018-02-19] MEDS: MULTIVITAMINS/MINERALS THERAP 1 TAB PO (10:25)
[2018-02-19] MEDS: SPIRONOLACTONE 25 MG TAB PO (10:25)
[2018-02-19] MEDS: ASPIRIN 81 MG ENTERIC TAB PO (10:26)
[2018-02-20] MEDS: HumaLOG INSULIN (NovoLOG) PER UNIT SC ×3 (07:30→21:00)
[2018-02-20] MEDS: metFORMIN (GLUCOPHAGE) 500 MG TAB PO (08:00)
[2018-02-20] MEDS: guaiFENesin ER 600 MG TAB PO ×2 (09:00→21:00)
[2018-02-20] MEDS: SPIRONOLACTONE 25 MG TAB PO (11:02)
[2018-02-20] MEDS: MULTIVITAMINS/MINERALS THERAP 1 TAB PO (11:02)
[2018-02-20] MEDS: ASPIRIN 81 MG ENTERIC TAB PO (11:03)
[2018-02-20] MEDS: LISINOPRIL 20 MG TAB PO (11:03)
[2018-02-21] MEDS: HumaLOG INSULIN (NovoLOG) PER UNIT SC ×4 (07:30→20:34)
[2018-02-21] MEDS: metFORMIN (GLUCOPHAGE) 500 MG TAB PO ×2 (08:00→17:41)
[2018-02-21] MEDS: guaiFENesin ER 600 MG TAB PO ×2 (09:00→20:34)
[2018-02-21] MEDS: ASPIRIN 81 MG ENTERIC TAB PO (10:58)
[2018-02-21] MEDS: LISINOPRIL 20 MG TAB PO (10:58)
[2018-02-21] MEDS: MULTIVITAMINS/MINERALS THERAP 1 TAB PO (10:58)
[2018-02-21] MEDS: SPIRONOLACTONE 25 MG TAB PO (10:58)
[2018-02-22] MEDS: HumaLOG INSULIN (NovoLOG) PER UNIT SC ×4 (07:30→20:24)
[2018-02-22] MEDS: metFORMIN (GLUCOPHAGE) 500 MG TAB PO ×2 (08:00→18:00)
[2018-02-22] MEDS: guaiFENesin ER 600 MG TAB PO ×2 (08:40→20:24)
[2018-02-22] MEDS: ASPIRIN 81 MG ENTERIC TAB PO (11:08)
[2018-02-22] MEDS: MULTIVITAMINS/MINERALS THERAP 1 TAB PO (11:09)
[2018-02-22] MEDS: LISINOPRIL 20 MG TAB PO (11:09)
[2018-02-22] MEDS: SPIRONOLACTONE 25 MG TAB PO (11:09)
[2018-02-23] MEDS: HumaLOG INSULIN (NovoLOG) PER UNIT SC ×4 (08:10→21:43)
[2018-02-23] MEDS: guaiFENesin ER 600 MG TAB PO ×2 (08:10→21:43)
[2018-02-23] MEDS: metFORMIN (GLUCOPHAGE) 500 MG TAB PO ×2 (08:10→08:11)
[2018-02-23] MEDS: LISINOPRIL 20 MG TAB PO (09:17)
[2018-02-23] MEDS: ASPIRIN 81 MG ENTERIC TAB PO (09:17)
[2018-02-23] MEDS: SPIRONOLACTONE 25 MG TAB PO (09:17)
[2018-02-23] MEDS: MULTIVITAMINS/MINERALS THERAP 1 TAB PO (09:17)
[2018-02-24] MEDS: guaiFENesin ER 600 MG TAB PO ×2 (08:06→20:00)
[2018-02-24] MEDS: HumaLOG INSULIN (NovoLOG) PER UNIT SC ×4 (08:06→20:00)
[2018-02-24] MEDS: metFORMIN (GLUCOPHAGE) 500 MG TAB PO ×2 (08:06→08:07)
[2018-02-24] MEDS: SPIRONOLACTONE 25 MG TAB PO (09:00)
[2018-02-24] MEDS: MULTIVITAMINS/MINERALS THERAP 1 TAB PO (09:41)
[2018-02-24] MEDS: LISINOPRIL 20 MG TAB PO (09:41)
[2018-02-24] MEDS: ASPIRIN 81 MG ENTERIC TAB PO (09:41)
[2018-02-25] MEDS: HumaLOG INSULIN (NovoLOG) PER UNIT SC ×4 (07:30→20:21)
[2018-02-25] MEDS: metFORMIN (GLUCOPHAGE) 500 MG TAB PO ×2 (08:00→17:27)
[2018-02-25] MEDS: guaiFENesin ER 600 MG TAB PO ×2 (08:46→20:21)
[2018-02-25] MEDS: LISINOPRIL 20 MG TAB PO (09:00)
[2018-02-25] MEDS: ASPIRIN 81 MG ENTERIC TAB PO (09:41)
[2018-02-25] MEDS: MULTIVITAMINS/MINERALS THERAP 1 TAB PO (09:41)
[2018-02-25] MEDS: SPIRONOLACTONE 25 MG TAB PO (09:41)
[2018-02-26] MEDS: HumaLOG INSULIN (NovoLOG) PER UNIT SC ×4 (07:30→20:50)
[2018-02-26] MEDS: metFORMIN (GLUCOPHAGE) 500 MG TAB PO ×2 (08:00→17:51)
[2018-02-26] MEDS: guaiFENesin ER 600 MG TAB PO ×2 (09:00→20:50)
[2018-02-26] MEDS: LISINOPRIL 20 MG TAB PO (11:17)
[2018-02-26] MEDS: SPIRONOLACTONE 25 MG TAB PO (11:17)
[2018-02-26] MEDS: ASPIRIN 81 MG ENTERIC TAB PO (11:17)
[2018-02-26] MEDS: MULTIVITAMINS/MINERALS THERAP 1 TAB PO (11:17)
[2018-02-27] MEDS: HumaLOG INSULIN (NovoLOG) PER UNIT SC ×4 (07:30→20:24)
[2018-02-27] MEDS: metFORMIN (GLUCOPHAGE) 500 MG TAB PO ×2 (07:54→17:04)
[2018-02-27] MEDS: guaiFENesin ER 600 MG TAB PO ×2 (10:10→20:24)
[2018-02-27] MEDS: MULTIVITAMINS/MINERALS THERAP 1 TAB PO (10:16)
[2018-02-27] MEDS: SPIRONOLACTONE 25 MG TAB PO (10:17)
[2018-02-27] MEDS: ASPIRIN 81 MG ENTERIC TAB PO (10:17)
[2018-02-27] MEDS: LISINOPRIL 20 MG TAB PO (10:17)
[2018-02-28] MEDS: HumaLOG INSULIN (NovoLOG) PER UNIT SC ×4 (07:30→21:00)
[2018-02-28] MEDS: metFORMIN (GLUCOPHAGE) 500 MG TAB PO ×2 (07:32→19:00)
[2018-02-28] MEDS: guaiFENesin ER 600 MG TAB PO ×2 (10:52→21:00)
[2018-02-28] MEDS: MULTIVITAMINS/MINERALS THERAP 1 TAB PO (10:57)
[2018-02-28] MEDS: SPIRONOLACTONE 25 MG TAB PO (10:57)
[2018-02-28] MEDS: LISINOPRIL 20 MG TAB PO (10:57)
[2018-02-28] MEDS: ASPIRIN 81 MG ENTERIC TAB PO (10:58)
[2018-03-01] MEDS: HumaLOG INSULIN (NovoLOG) PER UNIT SC ×4 (07:30→19:35)
[2018-03-01] MEDS: metFORMIN (GLUCOPHAGE) 500 MG TAB PO ×2 (08:00→18:00)
[2018-03-01] MEDS: guaiFENesin ER 600 MG TAB PO ×2 (09:00→19:35)
[2018-03-01] MEDS: SPIRONOLACTONE 25 MG TAB PO (11:08)
[2018-03-01] MEDS: LISINOPRIL 20 MG TAB PO (11:08)
[2018-03-01] MEDS: MULTIVITAMINS/MINERALS THERAP 1 TAB PO (11:08)
[2018-03-01] MEDS: ASPIRIN 81 MG ENTERIC TAB PO (11:09)
[2018-03-02] MEDS: HumaLOG INSULIN (NovoLOG) PER UNIT SC ×4 (07:30→21:00)
[2018-03-02] MEDS: metFORMIN (GLUCOPHAGE) 500 MG TAB PO ×2 (08:00→18:00)
[2018-03-02] MEDS: guaiFENesin ER 600 MG TAB PO ×2 (09:00→21:00)
[2018-03-02] MEDS: SPIRONOLACTONE 25 MG TAB PO (09:46)
[2018-03-02] MEDS: MULTIVITAMINS/MINERALS THERAP 1 TAB PO (09:46)
[2018-03-02] MEDS: LISINOPRIL 20 MG TAB PO (09:46)
[2018-03-02] MEDS: ASPIRIN 81 MG ENTERIC TAB PO (09:46)
[2018-03-03] MEDS: HumaLOG INSULIN (NovoLOG) PER UNIT SC ×4 (07:30→21:17)
[2018-03-03] MEDS: metFORMIN (GLUCOPHAGE) 500 MG TAB PO ×2 (08:00→21:17)
[2018-03-03] MEDS: guaiFENesin ER 600 MG TAB PO ×2 (09:00→21:17)
[2018-03-03] MEDS: LISINOPRIL 20 MG TAB PO (09:45)
[2018-03-03] MEDS: MULTIVITAMINS/MINERALS THERAP 1 TAB PO (09:45)
[2018-03-03] MEDS: ASPIRIN 81 MG ENTERIC TAB PO (09:45)
[2018-03-03] MEDS: SPIRONOLACTONE 25 MG TAB PO (09:45)
[2018-03-04] MEDS: HumaLOG INSULIN (NovoLOG) PER UNIT SC ×4 (07:30→21:00)
[2018-03-04] MEDS: metFORMIN (GLUCOPHAGE) 500 MG TAB PO ×2 (08:00→18:00)
[2018-03-04] MEDS: guaiFENesin ER 600 MG TAB PO ×2 (09:00→21:00)
[2018-03-04] MEDS: ASPIRIN 81 MG ENTERIC TAB PO (11:37)
[2018-03-04] MEDS: SPIRONOLACTONE 25 MG TAB PO (11:38)
[2018-03-04] MEDS: LISINOPRIL 20 MG TAB PO (11:38)
[2018-03-04] MEDS: MULTIVITAMINS/MINERALS THERAP 1 TAB PO (11:38)
[2018-03-05] MEDS: HumaLOG INSULIN (NovoLOG) PER UNIT SC ×4 (07:30→20:56)
[2018-03-05] MEDS: metFORMIN (GLUCOPHAGE) 500 MG TAB PO ×2 (08:00→16:10)
[2018-03-05] MEDS: guaiFENesin ER 600 MG TAB PO ×2 (09:00→20:56)
[2018-03-05] MEDS: ASPIRIN 81 MG ENTERIC TAB PO (11:01)
[2018-03-05] MEDS: SPIRONOLACTONE 25 MG TAB PO (11:01)
[2018-03-05] MEDS: MULTIVITAMINS/MINERALS THERAP 1 TAB PO (11:02)
[2018-03-05] MEDS: LISINOPRIL 20 MG TAB PO (11:02)
[2018-03-06] MEDS: HumaLOG INSULIN (NovoLOG) PER UNIT SC (06:49)
[2018-03-06] MEDS: metFORMIN (GLUCOPHAGE) 500 MG TAB PO (06:50)
[2018-03-06] MEDS: guaiFENesin ER 600 MG TAB PO (06:50)
[2018-03-06] MEDS: SPIRONOLACTONE 25 MG TAB PO (07:38)
[2018-03-06] MEDS: ASPIRIN 81 MG ENTERIC TAB PO (07:38)
[2018-03-06] MEDS: MULTIVITAMINS/MINERALS THERAP 1 TAB PO (07:38)
[2018-03-06] MEDS: LISINOPRIL 20 MG TAB PO (07:38)
== END 2018-03-06 07:59 | disposition home or self-care (01) | DRG 194 ==
LOC: M MSPAV 04-05 14:41 → M ED 13:36 → M ED INP 20:43 → M PCU 22:02
DX: I50.21 Acute systolic (congestive) heart failure (principal); J18.9 Pneumonia, unspecified organism; E66.01 Morbid (severe) obesity due to excess calories; F31.9 Bipolar disorder, unspecified; E11.9 Type 2 diabetes mellitus without complications; B35.9 Dermatophytosis, unspecified; R60.1 Generalized edema; F22 Delusional disorders; Z88.5 Allergy status to narcotic agent; Z88.8 Allergy status to other drugs, medicaments and biological substances; Z87.891 Personal history of nicotine dependence; Z59.0 Homelessness; F43.10 Post-traumatic stress disorder, unspecified; F60.3 Borderline personality disorder; Z79.899 Other long term (current) drug therapy; Z79.82 Long term (current) use of aspirin; Z91.19 Patient's noncompliance with other medical treatment and regimen